=== PATIENT | male | born 1955 | race African-American/Black ===

== ENCOUNTER 2016-05-16 03:18 | Emergency (ER) | payer OTHER ==
[~2016-05-16] VITALS: Ht 177.8 cm; Wt 77.0 kg
[~2016-05-16 03:18] MED LIST: BRIM0.2S LEFT EYE; LISI-363 PO; LOPR50TA12 PO; MULT-65 PO; TOBR3.5O RIGHT EYE; WARF1TAB PO; WARF7.5T4 PO
[2016-05-16 03:21] VITALS: BP 176/100; PULSE 72; RESP 16; TEMP 98; O2SAT 98
[2016-05-16] MEDS ORDERED: PRED20 PO (03:47)
--- NOTE | 2016-05-16 03:47 | PD ---
HPI Chief Complaint: Numbness/Tingling Time Seen by Provider: 03:33 Travel History International Travel<30 days: No Contact w/Intl Traveler<30days: No Traveled to known affect area: No History of Present Illness HPI Patient is 61-year-old male who presents emergency Department with left greater than right index finger numbness and tingling. Patient states his been happening on and off to him for some time and gets worse when he lies down. Patient states he woke with this to find that his finger was numb tingling. Denies any neck pain. He does have a history of low back pain with sciatica which is resolved after he had back surgery. Denies any weakness denies any visual changes. Denies any headache nausea vomiting. PFSH Past Medical History Hx Anticoagulant Therapy: Yes Arthritis: Yes Anxiety: Yes Heart Rhythm Problems: No Cancer: No Cardiac Catheterization: No Cardiovascular Problems: Yes (HTN) High Cholesterol: Yes Chemotherapy: No Congestive Heart Failure: No Cerebrovascular Accident: No Diabetes: No Diminished Hearing: No Gastrointestinal Disorders: Yes (IBS) Glaucoma: Yes Hypertension: Yes Immune Disorder: No Musculoskeletal: Yes (CHRONIC BACK AND KNEE PAIN) Neurologic: No Psychiatric: No Respiratory: Yes (PE) Immunizations Current: No Myocardial Infarction: No Ulcer: Yes (POSSIBLE) Tetanus Vaccination: < 5 Years Influenza Vaccination: Yes Past Surgical History Coronary Artery Bypass Graft: No Eye Surgery: Yes (R eye surgery ) Hysterectomy: No Oral Surgery: Yes Social History Alcohol Use: Yes (OCCASIONALLY) Tobacco Use: No (1997) Substance Use: No Allergies-Medications (Allergen,Severity, Reaction): Coded Allergies: Penicillin (Verified Allergy, Severe, 05/16/16) Percodan (Verified Allergy, Severe, RASH/HIVES, 05/16/16) HMG-CoA Reductase Inhibitors (Verified Allergy, Intermediate, MUSCLE WEAKNESS, 05/16/16) Reported Meds & Prescriptions Reported Meds & Active Scripts Active Prednisone 20 Mg Tab 40 Mg PO DAILY 5 Days Tobradex Opht Oint (Tobramycin/Dexamethasone) 3.5 Applic/3.5 Gm Oint 0.5 Inch RIGHT EYE Q6 7 Days Reported Lopressor (Metoprolol Tartrate) 50 Mg Tab 5 Mg PO BID Lisinopril 20 mg (Lisinopril) 20 Mg Tab 12.5 Tab PO DAILY Warfarin Sodium 7.5 Mg Tab 1.5 Mg PO MOWEFR@16 Brimonidine Tartrate 0.2 % Claire 1 Drop LEFT EYE BID Multi-Vitamin Daily (Multivitamins) Daily Tab 1 Tab PO DAILY Warfarin Sodium 1 mg (Warfarin Sodium) 1 Mg Tab 5 Mg PO ETHURSFRISUN Review of Systems Except as stated in HPI: all other systems reviewed are Neg Physical Exam Narrative GENERAL: Well-developed well-nourished, quite pleasant in no apparent distress. SKIN: Warm and dry. HEAD: Atraumatic. Normocephalic. EYES: Pupils equal and round. No scleral icterus. No injection or drainage. ENT: No nasal bleeding or discharge. Mucous membranes pink and moist. NECK: Trachea midline. No JVD. CARDIOVASCULAR: Regular rate and rhythm. No murmur appreciated. RESPIRATORY: No accessory muscle use. Clear to auscultation. Breath sounds equal bilaterally. GASTROINTESTINAL: Abdomen soft, non-tender, nondistended. Hepatic and splenic margins not palpable. MUSCULOSKELETAL: No obvious deformities. No clubbing. No cyanosis. No edema. Pulses motor and sensory intact distally in all 4 extremity's. Cap refill is brisk in all 10 fingers. NEUROLOGICAL: Awake and alert. Cranial nerves II through XII grossly intact and nonfocal, 5 out of 5 strength in all 4 extremities. Small Piece Cutter strength is normal flexion and extension of the index fingers bilaterally is normal. There is some subjective numbness and tingling with sensation is intact. PSYCHIATRIC: Appropriate mood and affect; insight and judgment normal. Data Data Last Documented VS Vital Signs Date Time Temp Pulse Resp B/P Pulse Ox O2 Delivery O2 Flow Rate FiO2 05/16/16 03:34 66 14 97 Room Air 05/16/16 03:21 98.0 176/100 [facility] Medical Decision Making Medical Screen Exam Complete: Yes Emergency Medical Condition: Yes Differential Diagnosis Peripheral neuropathy, radiculopathy, cervical radicular up the, carpal tunnel syndrome. Acute CVA is highly unlikely, acute TIAs highly likely. Narrative Course Patient roomed in the emergency department, after discussion with him patient states that sometimes numbness and tingling does get worse based on if his neck is hyperextended for some time in bed. The remainder of his neuro exam is completely within normal limits. I highly doubt acute CVA or TIA. Noted to be hypertensive but he's been taking his lisinopril. He states the numbness and tingling is not painful and declines pain medication. Discussed with him that peripheral neuropathy really heads my differential diagnosis and I don't think that he warrants any further workup at this time. He is agreeable to a trial of steroids as an outpatient. [facility] Diagnosis Primary Impression: Peripheral neuropathy Qualified Code: G58.9 - Mononeuropathy Med/Other Pt SpecificInfo: Prescription(s) given Scripts Prednisone 20 Mg Tab40 Mg PO DAILY 5 Days Ref 0 Prov:Kiko Valiente MD 05/16/16 Disposition: 01 DISCHARGE HOME Condition: Stable Kiko Valiente MD May 16, 2016 03:47
== END 2016-05-16 04:03 | disposition home or self-care (01) ==
LOC: NEPC 03:18
DX: G58.9 Mononeuropathy, unspecified (principal); I10 Essential (primary) hypertension; E78.00 Pure hypercholesterolemia, unspecified; Z79.01 Long term (current) use of anticoagulants; Z87.39 Personal history of other diseases of the musculoskeletal system and connective tissue; Z86.59 Personal history of other mental and behavioral disorders; Z87.19 Personal history of other diseases of the digestive system; Z86.69 Personal history of other diseases of the nervous system and sense organs; Z86.711 Personal history of pulmonary embolism; Z87.891 Personal history of nicotine dependence
CPT/HCPCS: 99283

== ENCOUNTER 2016-05-31 02:06 | Emergency (ER) | payer OTHER ==
[~2016-05-31] VITALS: Ht 177.8 cm; Wt 72.0 kg
[~2016-05-31 02:06] MED LIST changes: +PRED20 PO
[2016-05-31 02:07] VITALS: BP 178/86; PULSE 61; RESP 16; TEMP 98.1; O2SAT 98
[2016-05-31] MEDS ORDERED: MULTTAB67 PO (03:58)
[2016-05-31] MEDS ORDERED: WARF-21 PO (03:58)
[2016-05-31] MEDS ORDERED: BRIM0.2S4 LEFT EYE (03:58)
[2016-05-31] MEDS ORDERED: WARF4TAB52 PO (03:58)
[2016-05-31] MEDS ORDERED: LISI-515 PO (03:58)
[2016-05-31] MEDS ORDERED: METO-309 PO (03:58)
[2016-05-31 04:00] VITALS: BP 157/73; PULSE 51; RESP 18; O2SAT 96
--- NOTE | 2016-05-31 05:46 | PD ---
HPI Chief Complaint: Hypertension Time Seen by Provider: 04:07 Travel History International Travel<30 days: No Contact w/Intl Traveler<30days: No Traveled to known affect area: No History of Present Illness HPI The patient 61 years old. He came in because at home his blood pressure was 200 /98. He reports compliance with his antihypertensives. Briefly he felt nauseated however that resolved prior to ER arrival. He's had no chest pain or shortness of breath. No additional complaint. PFSH Past Medical History Hx Anticoagulant Therapy: Yes (WARFARIN) Arthritis: Yes Anxiety: Yes Heart Rhythm Problems: No Cancer: No Cardiac Catheterization: No Cardiovascular Problems: Yes (HTN) High Cholesterol: Yes Chemotherapy: No Congestive Heart Failure: No Cerebrovascular Accident: No Diabetes: No Diminished Hearing: No Gastrointestinal Disorders: Yes (IBS) Glaucoma: Yes Hypertension: Yes Immune Disorder: No Musculoskeletal: Yes (CHRONIC BACK AND KNEE PAIN) Neurologic: No Psychiatric: No Respiratory: Yes (PE) Immunizations Current: No Myocardial Infarction: No Ulcer: Yes (POSSIBLE) Past Surgical History Abdominal Surgery: Yes (HERNIA REPAIR) Coronary Artery Bypass Graft: No Eye Surgery: Yes (R eye surgery ) Hysterectomy: No Oral Surgery: Yes Social History Alcohol Use: No Tobacco Use: No Substance Use: No Allergies-Medications (Allergen,Severity, Reaction): Coded Allergies: Penicillin (Verified Allergy, Severe, 05/31/16) Percodan (Verified Allergy, Severe, RASH/HIVES, 05/31/16) HMG-CoA Reductase Inhibitors (Verified Allergy, Intermediate, MUSCLE WEAKNESS, 05/31/16) Reported Meds & Prescriptions Reported Meds & Active Scripts Active Reported Warfarin 7.5 Mg Tab 1.5 Mg PO MOWEFRI PRN Warfarin 1 Mg Tab 1 Mg PO TUESTHURSFRISUN Multiple Vitamin 1 Tab 1 Tab PO DAILY Lopressor (Metoprolol Tartrate) 50 Mg Tab 50 Mg PO BID Lisinopril 20 Mg Tab 20 Mg PO DAILY Brimonidine Opth Drops (Brimonidine Tartrate) 0.2% Soln 1 Drop LEFT EYE BID Review of Systems Except as stated in HPI: all other systems reviewed are Neg Physical Exam Narrative GENERAL: 61-year-old male pleasant well-nourished well-developed SKIN: Warm and dry. HEAD: Atraumatic. Normocephalic. EYES: Pupils equal and round. No scleral icterus. No injection or drainage. ENT: No nasal bleeding or discharge. Mucous membranes pink and moist. NECK: Trachea midline. No JVD. CARDIOVASCULAR: Regular rate and rhythm. No murmur appreciated. RESPIRATORY: No accessory muscle use. Clear to auscultation. Breath sounds equal bilaterally. GASTROINTESTINAL: Abdomen soft, non-tender, nondistended. Hepatic and splenic margins not palpable. MUSCULOSKELETAL: No obvious deformities. No clubbing. No cyanosis. No edema. NEUROLOGICAL: Awake and alert. No obvious cranial nerve deficits. Motor grossly within normal limits. Normal speech. PSYCHIATRIC: Appropriate mood and affect; insight and judgment normal. Data Data Last Documented VS Vital Signs Date Time Temp Pulse Resp B/P Pulse Ox O2 Delivery O2 Flow Rate FiO2 05/31/16 04:00 51 18 157/73 96 Room Air 05/31/16 02:07 98.1 [facility] Medical Decision Making Medical Screen Exam Complete: Yes Emergency Medical Condition: Yes Medical Record Reviewed: Yes Differential Diagnosis Hypertensive emergency, hypertensive crisis, hypertension Narrative Course The patient has no significantly elevated blood pressure in the ER. Continued compliance with antihypertensives recommended. Patient ready for discharge. Diagnosis Primary Impression: HTN (hypertension) Qualified Code: I15.9 - Secondary hypertension Referrals: [facility] 2 days Additional Instructions: You have a choice when it comes to health care, and we are glad that you chose [facility]. Hopefully, we have met your expectations on today's visit. You are welcome to return to [facility] at any time, as we are committed to meeting the health care needs of our community. Med/Other Pt SpecificInfo: No Change to Meds Disposition: 01 DISCHARGE HOME Condition: Mart Eldridge MD May 31, 2016 05:46
--- NOTE | 2016-05-31 10:02 | EKG ---
Date Performed: 05/31/2016 Time Performed: 03:54:30 PTAGE: 61 years EKG: SINUS BRADYCARDIA MODERATE ST DEPRESSION ABNORMAL ECG PREVIOUS TRACING : 10/20/2015 04.05 DOCTOR: Rajesh Cho Interpretating Date/Time 05/31/2016 10:00:10
== END 2016-05-31 05:55 | disposition home or self-care (01) ==
LOC: NEPE 02:06
DX: I10 Essential (primary) hypertension (principal); R00.1 Bradycardia, unspecified; E78.00 Pure hypercholesterolemia, unspecified; K58.9 Irritable bowel syndrome, unspecified; Z86.711 Personal history of pulmonary embolism; Z79.01 Long term (current) use of anticoagulants
CPT/HCPCS: 93005; 99282

== ENCOUNTER 2016-07-08 10:42 | Emergency (ER) | payer OTHER ==
[~2016-07-08] VITALS: Ht 180.3 cm; Wt 75.0 kg
[~2016-07-08 10:42] MED LIST changes: -BRIM0.2S LEFT EYE; +BRIM0.2S4 LEFT EYE; -LISI-363 PO; +LISI-515 PO; -LOPR50TA12 PO; +METO-309 PO; -MULT-65 PO; +MULTTAB67 PO; -PRED20 PO; -TOBR3.5O RIGHT EYE; +WARF-21 PO; -WARF1TAB PO; +WARF4TAB52 PO; -WARF7.5T4 PO
[2016-07-08 10:44] VITALS: BP 165/84; PULSE 82; RESP 16; TEMP 98.5; O2SAT 96
[2016-07-08 11:02] VITALS: BP 153/83; PULSE 73; RESP 16; O2SAT 100
--- NOTE | 2016-07-08 11:10 | PD ---
HPI Chief Complaint: Hypertension Time Seen by Provider: 11:10 Travel History International Travel<30 days: No Contact w/Intl Traveler<30days: No Traveled to known affect area: No History of Present Illness HPI 61-year-old male with a history of hypertension presents to the emergency department for evaluation of feeling as though his blood pressure is elevated. States that he occasionally has episodes of elevated blood pressure despite taking his medication. States that he had a slight headache and some mild nausea this morning and tried to take his blood pressure at home but his blood pressure cuff was not working. States that this is how he feels when his blood pressure is elevated so he came here for evaluation. He states he does have a history of headaches and that this is a typical headache for him. Denies sudden onset thunderclap headache or worst headache of his life. Denies any vision loss, blurred vision, fever, chills, vomiting, diarrhea, chest pain, shortness of breath, abdominal pain, numbness or tingling or weakness. States that he took his lisinopril this morning and his metoprolol last night, as prescribed. No other complaints. [facility] the [facility] Past Medical History Hx Anticoagulant Therapy: Yes (WARFARIN) Arthritis: Yes Anxiety: Yes Heart Rhythm Problems: No Cancer: No Cardiac Catheterization: No Cardiovascular Problems: Yes (HTN) High Cholesterol: Yes Chemotherapy: No Congestive Heart Failure: No Cerebrovascular Accident: No Diabetes: No Diminished Hearing: No Gastrointestinal Disorders: Yes (IBS) Glaucoma: Yes Hypertension: Yes Immune Disorder: No Musculoskeletal: Yes (CHRONIC BACK AND KNEE PAIN) Neurologic: No Psychiatric: No Respiratory: Yes (PE) Immunizations Current: No Myocardial Infarction: No Ulcer: Yes (POSSIBLE) Past Surgical History Abdominal Surgery: Yes (HERNIA REPAIR) Coronary Artery Bypass Graft: No Eye Surgery: Yes (R eye surgery ) Hysterectomy: No Oral Surgery: Yes Social History Alcohol Use: No Tobacco Use: No Substance Use: No Allergies-Medications (Allergen,Severity, Reaction): Coded Allergies: Penicillin (Verified Allergy, Severe, 05/31/16) Percodan (Verified Allergy, Severe, RASH/HIVES, 05/31/16) HMG-CoA Reductase Inhibitors (Verified Allergy, Intermediate, MUSCLE WEAKNESS, 05/31/16) Reported Meds & Prescriptions Reported Meds & Active Scripts Active Reported Warfarin 7.5 Mg Tab 1.5 Mg PO MOWEFRI PRN Warfarin 1 Mg Tab 1 Mg PO TUESTHURSFRISUN Multiple Vitamin 1 Tab 1 Tab PO DAILY Lopressor (Metoprolol Tartrate) 50 Mg Tab 50 Mg PO BID Lisinopril 20 Mg Tab 20 Mg PO DAILY Brimonidine Opth Drops (Brimonidine Tartrate) 0.2% Soln 1 Drop LEFT EYE BID Review of Systems Except as stated in HPI: all other systems reviewed are Neg Physical Exam Narrative GENERAL: Well-nourished and well-developed pleasant male patient in no acute distress who is nontoxic appearing. SKIN: Warm and dry. HEAD: Normocephalic and atraumatic. EYES: No injection, drainage, or hyphema noted. PERRLA. EOMI. ENT: No nasal drainage noted. Oropharynx is clear. NECK: Supple and the trachea is midline. CARDIOVASCULAR: Regular rate and rhythm. RESPIRATORY: Breath sounds are equal bilaterally with no accessory muscle use, wheezing, rhonchi, or crackles. GASTROINTESTINAL: Abdomen is soft, non-tender, and nondistended. MUSCULOSKELETAL: No obvious deformities, swelling, cyanosis, or ecchymosis is present throughout the upper and lower extremities. Patient has full range of motion without any signs of neurovascular compromise. Strength 5/5 upper and lower extremities and equal bilaterally. NEUROLOGICAL: Awake, alert, and oriented. Normal speech and gait. Cranial nerves are grossly intact. Data Data Last Documented VS Vital Signs Date Time Temp Pulse Resp B/P Pulse Ox O2 Delivery O2 Flow Rate FiO2 07/08/16 11:02 73 16 153/83 100 07/08/16 10:56 Room Air 07/08/16 10:44 98.5 [facility] Medical Decision Making Medical Screen Exam Complete: Yes Emergency Medical Condition: Yes Differential Diagnosis Hypertension versus medical clearance versus headache Narrative Course 61-year-old male presents to the emergency department for evaluation of possible elevated blood pressure. Patient is afebrile. The patient's blood pressure is 153/83. All other vital signs within normal limits. No focal neurologic deficits. No chest pain or shortness of breath. No other complaints or concerns. Physical examination is unremarkable. I did offer him tylenol for his mild headache however he states he would like to go home and take this medication. Patient also mentions he will be running out of his Metoprolol tomorrow and is asking for a refill however he is not sure of the dose - therefore I advised him to call his physician and ask them to call in a refill. Patient is reassured and advised to follow-up with his PCP. Patient verbalizes understanding and agreement with treatment plan. I discussed the case with my attending physician Dr. Valiente who is aware of the patients history, physical examination findings, and treatment plan. Diagnosis Primary Impression: HTN (hypertension) Qualified Code: I10 - Essential hypertension Referrals: Primary Care Physician Patient Instructions: General Instructions, Hypertension (ED) Additional Instructions: Follow-up with your Primary Care Physician. Return to the ED for any acute worsening of symptoms. Med/Other Pt SpecificInfo: No Change to Meds Disposition: 01 DISCHARGE HOME Condition: Stable Debbie Peters Jul 08, 2016 11:10
[2016-07-08 11:37] VITALS: BP 124/73
== END 2016-07-08 11:46 | disposition home or self-care (01) ==
LOC: NEPD 10:42
DX: I10 Essential (primary) hypertension (principal); R51 Headache; E78.00 Pure hypercholesterolemia, unspecified; Z79.01 Long term (current) use of anticoagulants; Z87.39 Personal history of other diseases of the musculoskeletal system and connective tissue; Z86.59 Personal history of other mental and behavioral disorders; Z86.79 Personal history of other diseases of the circulatory system; Z87.19 Personal history of other diseases of the digestive system; Z87.09 Personal history of other diseases of the respiratory system
CPT/HCPCS: 99283

== ENCOUNTER 2016-11-24 14:29 | Observation (INO) | payer OTHER ==
[2016-11-24] VITALS (7 sets, daily range): BP systolic 121–153; BP diastolic 68–84; PULSE 50–78; RESP 16–20; TEMP 98.3–98.4; O2SAT 95–99
[~2016-11-24] VITALS: Ht 177.8 cm; Wt 75.0 kg
[2016-11-24] MEDS ORDERED: LISI10TA3 PO (15:15)
[2016-11-24] MEDS ORDERED: WARF-23 PO (15:18)
[2016-11-24] MEDS ORDERED: METO25TA3 PO (15:19)
--- NOTE | 2016-11-24 15:24 | PD ---
HPI Chief Complaint: Cardiac Complaint Time Seen by Provider: 15:23 Travel History International Travel<30 days: No Contact w/Intl Traveler<30days: No Traveled to known affect area: No [facility] Past Medical History Hx Anticoagulant Therapy: Yes (COUMADIN (FOR BLOOD CLOTS)) Arthritis: Yes Anxiety: Yes Heart Rhythm Problems: No Cancer: No Cardiac Catheterization: No Cardiovascular Problems: Yes (HTN) High Cholesterol: Yes Chemotherapy: No Congestive Heart Failure: No Cerebrovascular Accident: No Diabetes: No Diminished Hearing: No Gastrointestinal Disorders: Yes (IBS) Glaucoma: Yes Hypertension: Yes Immune Disorder: No Musculoskeletal: Yes (CHRONIC BACK AND KNEE PAIN) Neurologic: No Psychiatric: No Respiratory: Yes (PE) Immunizations Current: No Myocardial Infarction: No Ulcer: Yes (POSSIBLE) Past Surgical History Abdominal Surgery: Yes (HERNIA REPAIR) Coronary Artery Bypass Graft: No Eye Surgery: Yes (R eye surgery ) Hysterectomy: No Oral Surgery: Yes Family History Family Myocardial Infarction: No Social History Alcohol Use: No Tobacco Use: No Substance Use: No Allergies-Medications (Allergen,Severity, Reaction): Coded Allergies: aspirin (Unverified Allergy, Severe, RASH/HIVES, 10/25/16) oxycodone (Unverified Allergy, Severe, RASH/HIVES, 10/25/16) penicillin G (Unverified Allergy, Severe, 10/25/16) amlodipine (Unverified Allergy, Intermediate, MUSCLE WEAKNESS, 10/25/16) atorvastatin (Unverified Allergy, Intermediate, MUSCLE WEAKNESS, 10/25/16) pravastatin (Unverified Allergy, Intermediate, MUSCLE WEAKNESS, 10/25/16) simvastatin (Unverified Allergy, Intermediate, MUSCLE WEAKNESS, 10/25/16) Reported Meds & Prescriptions Reported Meds & Active Scripts Active Reported Metoprolol Tartrate 25 Mg Tab 12.5 Mg PO BID Warfarin 5 Mg Tab 5 Mg PO ,OLY,SA,KEITH Lisinopril 10 Mg Tab 10 Mg PO BID Warfarin 7.5 Mg Tab 1.5 Mg PO MOWEFRI PRN Multiple Vitamin 1 Tab 1 Tab PO DAILY Brimonidine Opth Drops (Brimonidine Tartrate) 0.2% Soln 1 Drop LEFT EYE BID Data Data Last Documented VS Vital Signs Date Time Temp Pulse Resp B/P (MAP) Pulse Ox O2 Delivery O2 Flow Rate FiO2 11/24/16 14:32 98.3 78 20 153/78 (103) 99 Room Air Orders Orders Electrocardiogram (11/24/16 14:41) Complete Blood Count With Diff (11/24/16 14:41) Basic Metabolic Panel (Bmp) (11/24/16 14:41) Ckmb (Isoenzyme) Profile (11/24/16 14:41) Troponin I (11/24/16 14:41) Chest, Pa & Lat (11/24/16 14:41) Carla Mason Nov 24, 2016 15:24
--- NOTE | 2016-11-24 15:42 | PD ---
HPI Chief Complaint: Cardiac Complaint Time Seen by Provider: 15:23 Travel History International Travel<30 days: No Contact w/Intl Traveler<30days: No Traveled to known affect area: No History of Present Illness HPI 61-year-old male came to the emergency room with history of substernal chest discomfort and palpitations that started at 2 PM this afternoon. Patient says he was asleep when it woke him up. Currently patient says he is symptom-free but this whole thing made him worried. Patient is supposed to get a stress test next month at [facility] in [place]. He has history of diabetes but he is not a smoker. He does not have any history of coronary artery disease yet. His last stress test was a few years ago. Vital signs are stable. No aggravating or relieving factor. Pain was non-radiation all and felt like indigestion. The pain is paroxysmal in nature and no aggravating or relieving factors identified. PFSH Past Medical History Narrative Medical List of his past medical, surgical, social and family history was reviewed from the nursing note. Hx Anticoagulant Therapy: Yes (COUMADIN (FOR BLOOD CLOTS)) Arthritis: Yes Anxiety: Yes Heart Rhythm Problems: No Cancer: No Cardiac Catheterization: No Cardiovascular Problems: Yes (HTN) High Cholesterol: Yes Chemotherapy: No Congestive Heart Failure: No Cerebrovascular Accident: No Diabetes: No Diminished Hearing: No Gastrointestinal Disorders: Yes (IBS) Glaucoma: Yes Hypertension: Yes Immune Disorder: No Musculoskeletal: Yes (CHRONIC BACK AND KNEE PAIN) Neurologic: No Psychiatric: No Respiratory: Yes (PE) Immunizations Current: No Myocardial Infarction: No Ulcer: Yes (POSSIBLE) Past Surgical History Abdominal Surgery: Yes (HERNIA REPAIR) Coronary Artery Bypass Graft: No Eye Surgery: Yes (R eye surgery ) Hysterectomy: No Oral Surgery: Yes Family History Family Myocardial Infarction: No Social History Alcohol Use: No Tobacco Use: No Substance Use: No Allergies-Medications (Allergen,Severity, Reaction): Coded Allergies: aspirin (Unverified Allergy, Severe, RASH/HIVES, 10/25/16) oxycodone (Unverified Allergy, Severe, RASH/HIVES, 10/25/16) penicillin G (Unverified Allergy, Severe, 10/25/16) amlodipine (Unverified Allergy, Intermediate, MUSCLE WEAKNESS, 10/25/16) atorvastatin (Unverified Allergy, Intermediate, MUSCLE WEAKNESS, 10/25/16) pravastatin (Unverified Allergy, Intermediate, MUSCLE WEAKNESS, 10/25/16) simvastatin (Unverified Allergy, Intermediate, MUSCLE WEAKNESS, 10/25/16) Comments List of his allergies reviewed from the nursing note. Reported Meds & Prescriptions Reported Meds & Active Scripts Active Reported Metoprolol Tartrate 25 Mg Tab 12.5 Mg PO BID Warfarin 5 Mg Tab 5 Mg PO ,OLY,SA,KEITH Lisinopril 10 Mg Tab 10 Mg PO BID Warfarin 7.5 Mg Tab 1.5 Mg PO MOWEFRI PRN Multiple Vitamin 1 Tab 1 Tab PO DAILY Brimonidine Opth Drops (Brimonidine Tartrate) 0.2% Soln 1 Drop LEFT EYE BID Narrative Medication List of his home medications reviewed from the nursing note. Review of Systems Except as stated in HPI: all other systems reviewed are Neg Physical Exam Narrative GENERAL: Awake, alert, no obvious distress SKIN: Focused skin assessment warm/dry. HEAD: Atraumatic. Normocephalic. EYES: Pupils equal and round. No scleral icterus. No injection or drainage. ENT: No nasal bleeding or discharge. Mucous membranes pink and moist. NECK: Trachea midline. No JVD. CARDIOVASCULAR: Regular rate and rhythm. No murmur appreciated. RESPIRATORY: No accessory muscle use. Clear to auscultation. Breath sounds equal bilaterally. GASTROINTESTINAL: Abdomen soft, non-tender, nondistended. Hepatic and splenic margins not palpable. MUSCULOSKELETAL: No obvious deformities. No clubbing. No cyanosis. No edema. NEUROLOGICAL: Awake and alert. No obvious cranial nerve deficits. Motor grossly within normal limits. Normal speech. PSYCHIATRIC: Appropriate mood and affect; insight and judgment normal. Data Data Last Documented VS Vital Signs Date Time Temp Pulse Resp B/P (MAP) Pulse Ox O2 Delivery O2 Flow Rate FiO2 11/24/16 15:52 54 18 131/68 (89) 98 Room Air 11/24/16 14:32 98.3 Orders Orders Electrocardiogram (11/24/16 14:41) Complete Blood Count With Diff (11/24/16 14:41) Basic Metabolic Panel (Bmp) (11/24/16 14:41) Ckmb (Isoenzyme) Profile (11/24/16 14:41) Troponin I (11/24/16 14:41) Chest, Pa & Lat (11/24/16 14:41) Prothrombin Time / Inr (Pt) (11/24/16 15:42) CKMB (11/24/16 15:45) CKMB% (11/24/16 15:45) Sodium Chlor 0.9% 1000 Ml Inj (Ns 1000 M (11/24/16 17:15) Admit Order (Ed Use Only) (11/24/16 17:11) Place In Observation (11/24/16 17:12) Activity Bed Rest With Brp (11/24/16 17:12) Vital Signs (Adult) Q4H (11/24/16 17:12) Cardiac Rhythm .As Directed (11/24/16 17:12) Notify Dr: Other .PRN (11/24/16 17:12) Notify Parameters (11/24/16 17:12) Resp Oxygen Nasal Cannula (11/24/16 ) Ckmb (Isoenzyme) Profile (11/24/16 17:12) Ckmb (Isoenzyme) Profile (11/24/16 20:12) Troponin I (11/24/16 17:12) Troponin I (11/24/16 20:12) Electrocardiogram (11/24/16 20:12) ^ Obtain (11/24/16 17:12) Sodium Chloride 0.9% Flush (Ns Flush) (11/24/16 17:15) Sodium Chloride 0.9% Flush (Ns Flush) (11/24/16 21:00) Acetaminophen (Tylenol) (11/24/16 17:15) Ondansetron Inj (Zofran Inj) (11/24/16 17:15) Nitroglycerin Sl (Nitrostat Sl) (11/24/16 17:15) [employer] / Telemetry MANE.Q8H (11/24/16 17:12) Labs Laboratory Tests Test 11/24/16 15:45 White Blood Count 4.2 TH/MM3 Red Blood Count 4.24 MIL/MM3 Hemoglobin 13.5 GM/DL Hematocrit 39.3 % Mean Corpuscular Volume 92.7 FL Mean Corpuscular Hemoglobin 31.8 PG Mean Corpuscular Hemoglobin Concent 34.3 % Red Cell Distribution Width 13.9 % Platelet Count 139 TH/MM3 Mean Platelet Volume 9.4 FL Neutrophils (%) (Auto) 51.8 % Lymphocytes (%) (Auto) 31.0 % Monocytes (%) (Auto) 13.8 % Eosinophils (%) (Auto) 2.9 % Basophils (%) (Auto) 0.5 % Neutrophils # (Auto) 2.2 TH/MM3 Lymphocytes # (Auto) 1.3 TH/MM3 Monocytes # (Auto) 0.6 TH/MM3 Eosinophils # (Auto) 0.1 TH/MM3 Basophils # (Auto) 0.0 TH/MM3 CBC Comment AUTO DIFF Differential Comment AUTO DIFF CONFIRMED Platelet Estimate LOW Platelet Morphology Comment NORMAL Red Cell Morphology Comment NORMAL Prothrombin Time 20.1 SEC Prothromb Time International Ratio 1.8 RATIO Blood Urea Nitrogen 18 MG/DL Creatinine 1.17 MG/DL Random Glucose 83 MG/DL Calcium Level 8.7 MG/DL Sodium Level 143 MEQ/L Potassium Level 3.6 MEQ/L Chloride Level 110 MEQ/L Carbon Dioxide Level 27.2 MEQ/L Anion Gap 6 MEQ/L Estimat Glomerular Filtration Rate 76 ML/MIN Total Creatine Kinase 704 U/L Creatine Kinase MB 10.6 NG/ML Creatine Kinase MB % 1.5 % Troponin I LESS THAN 0.02 NG/ML MDM Medical Decision Making Medical Screen Exam Complete: Yes Emergency Medical Condition: Yes Medical Record Reviewed: Yes Interpretation(s) Twelve-lead EKG was reviewed by me. Normal sinus rhythm, normal axis, nonspecific ST-T wave changes, bradycardia. Heart rate of 53 bpm. Differential Diagnosis ACS, non-STEMI, nonspecific chest pain Narrative Course 5:17 PM blood test results of back. CPK is slightly elevated. I've given him a liter fluid bolus. Patient is allergic to aspirin and hence one was not given. Given his few risk factors he will be admitted to the chest pain center. Patient understands this. Procedures EKG Prior to Arrival: No Diagnosis Primary Impression: Chest pain Qualified Codes: R07.9 - Chest pain, unspecified Admitting Information Admitting Physician Requests: Observation Scripts Pantoprazole (Protonix) 40 Mg Tab 40 MG PO DAILY for Reflux, #30 TAB 0 Refills Prov: Colt Morataya 11/25/16 Natan Huertas MD Nov 24, 2016 15:42
--- NOTE | 2016-11-24 16:21 | RADRPT ---
EXAM DATE/TIME: 11/24/2016 16:08 [facility] COMPARISON: No previous studies available for comparison. INDICATIONS : Chest pressure today. MEDICAL HISTORY : Hypertension. Hypercholesterolemia. SURGICAL HISTORY : None. ENCOUNTER: Initial ACUITY: 1 day PAIN SCORE: 2/10 LOCATION: Bilateral chest FINDINGS: Left basilar streakiness is noted consistent with atelectasis and/or infiltrate. Clinical correlation is recommended. The right lung is clear. The heart is normal. Degenerative changes and scoliosis o f the thoracolumbar spine are noted. CONCLUSION: 1. Left basilar streakiness consistent with atelectasis and/or infiltrate. Clinical correlation is re commended. 2. Degenerative changes and scoliosis of the thoracolumbar spine. Kiko Hansen MD on November 24, 2016 at 16:17 Board Certified Radiologist. This report was verified electronically.
[2016-11-24 16:37] LABS: INTERNATIONAL NORMALIZED RATIO 1.8 RATIO; PROTHROMBIN TIME - PATIENT 20.1 SEC (9.8-11.6)
[2016-11-24 16:38] LABS: AUTOMATED NEUTROPHIL # 2.2 TH/MM3 (1.8-7.7); BASOPHIL % 0.5 % (0.0-2.0); EOSINOPHIL # 0.1 TH/MM3 (0-0.4); EOSINOPHIL % 2.9 % (0.0-4.0); HEMATOCRIT 39.3 % (39.0-51.0); HEMO FLAGS AUTO DIFF; LYMPHOCYTE # 1.3 TH/MM3 (1.0-4.8); MEAN CELL VOLUME 92.7 FL (80.0-100.0); MEAN CORPUSCULAR HEMOGLOBIN 31.8 PG (27.0-34.0); MEAN CORPUSCULAR HGB CONC 34.3 % (32.0-36.0); MONO % 13.8 % (0.0-8.0); NEUT % 51.8 % (16.0-70.0); PLATELET COUNT 139 TH/MM3 (150-450); RED BLOOD COUNT 4.24 MIL/MM3 (4.50-5.90); RED CELL DISTRIBUTION WIDTH 13.9 % (11.6-17.2); WHITE BLOOD COUNT 4.2 TH/MM3 (4.0-11.0)
[2016-11-24 16:57] LABS: ANION GAP 6 MEQ/L (5-15); BICARBONATE 27.2 MEQ/L (21.0-32.0); BLOOD UREA NITROGEN 18 MG/DL (7-18); CHLORIDE 110 MEQ/L (98-107); CREATINE KINASE 704 U/L (39-308); GLOMERULAR FILTRATION RATE 76 ML/MIN (>89); SODIUM (NA) 143 MEQ/L (136-145)
[2016-11-24 16:59] LABS: POTASSIUM 3.6 MEQ/L (3.5-5.1)
[2016-11-24 17:08] LABS: PLATELET ESTIMATE SMEAR LOW (NORMAL); PLATELET MORPHOLOGY NORMAL (NORMAL)
[2016-11-24 17:09] LABS: SCAN/DIFF AUTO DIFF CONFIRMED
[2016-11-24 17:12] LABS: CKMB 10.6 NG/ML (0.5-3.6)
[2016-11-24] MEDS ORDERED: SODIUM CHLOR 0.9% 1000 ML INJ 1,000 ML IV ONE (17:15)
[2016-11-24] MEDS ORDERED: ACETAMINOPHEN 500 MG CPLT PO PRN (17:15)
[2016-11-24] MEDS ORDERED: SODIUM CHLORIDE 0.9% FLUSH 10 ML FLUSH IV FLUSH PRN (17:15)
[2016-11-24] MEDS ORDERED: NITROGLYCERIN 0.4 MG SL 25 TABS/BTL SL PRN (17:15)
[2016-11-24] MEDS ORDERED: ONDANSETRON HCL 4 MG/2 ML VIAL IV PUSH PRN (17:15)
[2016-11-24 19:11] LABS: CREATINE KINASE 600 U/L (39-308)
[2016-11-24 19:23] LABS: CKMB 8.9 NG/ML (0.5-3.6)
[2016-11-24] MEDS: SODIUM CHLORIDE 0.9% FLUSH 10 ML FLUSH IV FLUSH SCH (21:51)
[2016-11-25] VITALS: BP 122/78; PULSE 54; RESP 18; TEMP 98.1; O2SAT 96
[2016-11-25 03:34] LABS: CREATINE KINASE 521 U/L (39-308)
[2016-11-25 03:48] LABS: CKMB 7.5 NG/ML (0.5-3.6)
[2016-11-25 04:03] VITALS: BP 129/76; PULSE 49; RESP 20; TEMP 98.4; O2SAT 97
[2016-11-25 06:44] VITALS: O2SAT 98
[2016-11-25 07:15] VITALS: PULSE 66
[2016-11-25 08:15] VITALS: BP 134/74; PULSE 53; RESP 18; TEMP 98; O2SAT 95
[2016-11-25] MEDS ORDERED: LISINOPRIL 10 MG TAB PO SCH (09:00)
[2016-11-25] MEDS ORDERED: METOPROLOL TARTRATE 25 MG TAB PO SCH (09:00)
[2016-11-25] MEDS: SODIUM CHLORIDE 0.9% FLUSH 10 ML FLUSH IV FLUSH SCH (09:53)
--- NOTE | 2016-11-25 10:40 | HHI.HP ---
HPI Primary Care Physician [facility] Chief Complaint Chest pain History of Present Illness This is a 61-year-old male with history of hypertension hyperlipidemia that presents to ED with a complaint of fast heart rate and elevated blood pressure that began last night. States that he had eaten dinner which included bran flakes, to [employer] sandwiches, and CT and then about 20 minutes later lying down. Then he developed indigestion lasting about 15-20 minutes and about the same time he also had the sensation of heart beating rapidly and that's rechecked the pulse being 161. He is not short of breath nausea or diaphoretic. He does have history of GERD. He did not take any over-the- counter remedies. Denies any other type of discomfort in his chest. He has history of pulmonary most 4 years ago. Takes warfarin. He believes he had a stress test in the past. I reviewed his records and he had a stress test in 2006 that was nonischemic. Denies recent illness. Denies fevers or chills. Review of Systems General: Patient denies fevers, chills recent, and recent travel HEENT: Patient denies headache, sore throat, difficulty swallowing. Cardiovascular: Has the chest discomfort as mentioned above. Had sensation of heart beating rapidly and states he checked the pulse and his wrist and was 161. Denies heart beating irregularly. No syncope. Denies diaphoresis. Respiratory: Denies shortness of breath or inspirational chest discomfort. Denies coughing wheezing or hemoptysis. GI: Patient denies nausea, vomiting, diarrhea, abdominal pain, bloody stools. Musculoskeletal: Patient denies joint pain or edema. Denies calf pain or edema. Neurovascular: Patient denies numbness, tingling, weakness in extremities. Denies headache. Endocrine: Denies polyuria and polydipsia. Hematologic: Denies easy bruising. Skin: Denies rash or itching. Past Family Social History Allergies: Coded Allergies: aspirin (Unverified Allergy, Severe, RASH/HIVES, 10/25/16) oxycodone (Unverified Allergy, Severe, RASH/HIVES, 10/25/16) penicillin G (Unverified Allergy, Severe, 10/25/16) amlodipine (Unverified Allergy, Intermediate, MUSCLE WEAKNESS, 10/25/16) atorvastatin (Unverified Allergy, Intermediate, MUSCLE WEAKNESS, 10/25/16) pravastatin (Unverified Allergy, Intermediate, MUSCLE WEAKNESS, 10/25/16) simvastatin (Unverified Allergy, Intermediate, MUSCLE WEAKNESS, 10/25/16) Past Medical History Hypertension, pulmonary embolus, also history of hyperlipidemia but states he cannot tolerate statins and along takes medication. Denies diabetes and known CAD. Past Surgical History Noncontributory. Reported Medications Reported Meds & Active Scripts Active Reported Metoprolol Tartrate 25 Mg Tab 12.5 Mg PO BID Warfarin 5 Mg Tab 5 Mg PO TU,OLY,SA,KEITH Lisinopril 10 Mg Tab 10 Mg PO BID Warfarin 7.5 Mg Tab 1.5 Mg PO MOWEFRI PRN Multiple Vitamin 1 Tab 1 Tab PO DAILY Brimonidine Opth Drops (Brimonidine Tartrate) 0.2% Soln 1 Drop LEFT EYE BID Active Ordered Medications Current Medications Medications (Trade) Dose Ordered Sig/Paulina Route Start Time Stop Time Status Last Admin (NS Flush) 2 ml UNSCH PRN IV FLUSH 11/24/16 17:15 (NS Flush) 2 ml BID IV FLUSH 11/24/16 21:00 11/25/16 09:53 (Tylenol) 500 mg Q4H PRN PO 11/24/16 17:15 11/24/16 21:52 (Zofran Inj) 4 mg Q6H PRN IV PUSH 11/24/16 17:15 (Nitrostat Sl) 0.4 mg Q5M PRN SL 11/24/16 17:15 (Prinivil) 10 mg BID PO 11/25/16 09:00 11/25/16 09:52 (Lopressor) 12.5 mg BID PO 11/25/16 09:00 11/25/16 09:53 Family History Denies family history of CAD. Social History Patient does not smoke, drink alcohol, or use illicit drugs. Physical Exam Vital Signs Vital Signs Date Time Temp Pulse Resp B/P (MAP) Pulse Ox O2 Delivery O2 Flow Rate FiO2 11/25/16 08:15 98.0 53 18 134/74 (94) 95 11/25/16 07:15 66 11/25/16 06:44 98 21 11/25/16 04:03 98.4 49 20 129/76 (93) 97 11/25/16 00:00 98.1 54 18 122/78 (93) 96 11/24/16 20:12 98.3 55 18 121/72 (88) 99 11/24/16 18:00 52 19 143/84 (103) 98 11/24/16 17:58 98.4 51 16 130/81 (97) 95 11/24/16 17:50 98 21 11/24/16 17:39 50 19 143/84 (103) 99 Room Air 11/24/16 15:52 54 18 131/68 (89) 98 Room Air 11/24/16 14:32 98.3 78 20 153/78 (103) 99 Room Air Physical Exam GENERAL: This is a well-nourished, well-developed patient, in no apparent distress. Patient speaks in clear complete sentences. Patient is pleasant. HEENT: Head is atraumatic and normocephalic. Neck is supple without lymphadenopathy and trachea is midline. No JVD or carotid bruits. CARDIOVASCULAR: Regular rate and rhythm without murmurs, gallops, or rubs. RESPIRATORY: Clear to auscultation. Breath sounds equal bilaterally. No wheezes , rales, or rhonchi. Chest wall is nontender. No use of accessory muscles. GASTROINTESTINAL: Abdomen is nontender, nondistended. Abdomen soft. No obvious pulsatile mass or bruit. No CVA tenderness. Strong femoral pulses bilaterally. Normal bowel sounds in all quadrants. MUSCULOSKELETAL: Patient is moving upper and lower extremities freely. No calf tenderness or edema, no Homans sign. Strong pulses in upper and lower extremities. NEUROLOGICAL: Patient is alert and oriented. Cranial nerves 2-12 are grossly intact. No focal deficits and speech is clear. SKIN: No rash and turgor is normal. Laboratory Laboratory Tests Test 11/24/16 15:45 11/24/16 18:45 11/24/16 21:50 White Blood Count 4.2 Red Blood Count 4.24 Hemoglobin 13.5 Hematocrit 39.3 Mean Corpuscular Volume 92.7 Mean Corpuscular Hemoglobin 31.8 Mean Corpuscular Hemoglobin Concent 34.3 Red Cell Distribution Width 13.9 Platelet Count 139 Mean Platelet Volume 9.4 Neutrophils (%) (Auto) 51.8 Lymphocytes (%) (Auto) 31.0 Monocytes (%) (Auto) 13.8 Eosinophils (%) (Auto) 2.9 Basophils (%) (Auto) 0.5 Neutrophils # (Auto) 2.2 Lymphocytes # (Auto) 1.3 Monocytes # (Auto) 0.6 Eosinophils # (Auto) 0.1 Basophils # (Auto) 0.0 CBC Comment AUTO DIFF Differential Comment AUTO DIFF CONFIRMED Platelet Estimate LOW Platelet Morphology Comment NORMAL Red Cell Morphology Comment NORMAL Prothrombin Time 20.1 Prothromb Time International Ratio 1.8 Blood Urea Nitrogen 18 Creatinine 1.17 Random Glucose 83 Calcium Level 8.7 Sodium Level 143 Potassium Level 3.6 Chloride Level 110 Carbon Dioxide Level 27.2 Anion Gap 6 Estimat Glomerular Filtration Rate 76 Total Creatine Kinase 704 600 521 Creatine Kinase MB 10.6 8.9 7.5 Creatine Kinase MB % 1.5 1.5 1.4 Troponin I LESS THAN 0.02 LESS THAN 0.02 LESS THAN 0.02 Result Diagram: 11/24/16 1545 11/24/16 1545 Course EKGs are sinus bradycardia without significant ST segment depressions or elevations. Caprini VTE Risk Assessment Caprini VTE Risk Assessment: Mod/High Risk (score >= 2) Caprini Risk Assessment Model Point Value = 1 Point Value = 2 Point Value = 3 Point Value = 5 Age 41-60 Minor surgery BMI > 25 kg/m2 Swollen legs Varicose veins or History of unexplained or recurrent spontaneous Oral contraceptives or hormone replacement Sepsis (< 1 month) Serious lung disease, including pneumonia (< 1 month) Abnormal pulmonary function Acute myocardial infarction Congestive heart failure (< 1 month) History of inflammatory bowel disease Medical patient at bed rest Age 61-74 Arthroscopic surgery Major open surgery (> 45 min) Laparoscopic surgery (> 45 min) Malignancy Confined to bed (> 72 hours) Immobilizing plaster cast Central venous access Age >= 75 History of VTE Family history of VTE Factor V Leiden Prothrombin [id number] Lupus anticoagulant Anticardiolipin antibodies Elevated serum homocysteine Heparin-induced thrombocytopenia Other congenital or acquired thrombophilia Stroke (< 1 month) Elective arthroplasty Hip, pelvis, or leg fracture Acute spinal cord injury (< 1 month) Prophylaxis Regimen Total Risk Factor Score Risk Level Prophylaxis Regimen 0-1 Low Early ambulation 2 Moderate Order ONE of the following: *Sequential Compression Device (SCD) *Heparin 5000 units SQ BID 3-4 Higher Order ONE of the following medications: *Heparin 5000 units SQ TID *Enoxaparin/Lovenox 40 mg SQ daily (WT < 150 kg, CrCl > 30 mL/min) *Enoxaparin/Lovenox 30 mg SQ daily (WT < 150 kg, CrCl > 10-29 mL/min) *Enoxaparin/Lovenox 30 mg SQ BID (WT < 150 kg, CrCl > 30 mL/min) AND/OR *Sequential Compression Device (SCD) 5 or more Highest Order ONE of the following medications: *Heparin 5000 units SQ TID (Preferred with Epidurals) *Enoxaparin/Lovenox 40 mg SQ daily (WT < 150 kg, CrCl > 30 mL/min) *Enoxaparin/Lovenox 30 mg SQ daily (WT < 150 kg, CrCl > 10-29 mL/min) *Enoxaparin/Lovenox 30 mg SQ BID (WT < 150 kg, CrCl > 30 mL/min) AND *Sequential Compression Device (SCD) Assessment and Plan Assessment and Plan * Atypical chest pain: Patient had serial cardiac enzymes and EKGs for ruling out purposes. He will be seen by Dr. Davila of cardiology in the chest pain center and at that time we'll determine if he needs stress testing. States that he would not be able walk on a treadmill with his chronic feet pain. * Hypertension: Continue current medication. * History of PE 4 years ago: Patient is on warfarin. He when he discussed this with his primary care physician to see if he should be on warfarin still. He did not have a recurrent pulmonary embolus. * Hyperlipidemia: Patient uses discuss this with his physician if there are other medications that he can tolerate. * GERD: We'll start Protonix. Patient is stable this time. He is agreeable to this plan. Colt Morataya Nov 25, 2016 10:40
[2016-11-25 12:00] VITALS: BP 129/75; PULSE 98; RESP 18; TEMP 97.1; O2SAT 99
[2016-11-25] MEDS ORDERED: PROT40TA PO (12:43)
--- NOTE | 2016-11-25 12:44 | HHI.DCPOC ---
Discharge Care Plan Diagnosis: (1) GERD (gastroesophageal reflux disease) (2) Chest pain (3) HTN (hypertension) Goals to Promote Your Health * To prevent worsening of your condition and complications * To maintain your health at the optimal level Directions to Meet Your Goals Take your medications as prescribed Follow your dietary instruction Follow activity as directed Keep your appointments as scheduled Take your immunizations and boosters as scheduled If your symptoms worsen call your PCP, if no PCP go to Urgent Care Center or Emergency Room Smoking is Dangerous to Your Health. Avoid second hand smoke Call the 24-hour hour crisis hotline for domestic abuse at Colt Morataya Nov 25, 2016 12:43
--- NOTE | 2016-11-25 14:46 | EKG ---
Date Performed: 11/24/2016 Time Performed: 21:22:51 PTAGE: 61 years EKG: SINUS BRADYCARDIA WITH FIRST DEGREE AV BLOCK ABNORMAL ECG PREVIOUS TRACING : 11/24/2016 19.04 Since previous tracing, no significant change noted DOCTOR: Jose Davila Interpretating Date/Time 11/25/2016 14:44:15
--- NOTE | 2016-11-25 14:48 | EKG ---
Date Performed: 11/24/2016 Time Performed: 15:25:53 PTAGE: 61 years EKG: SINUS BRADYCARDIA BORDERLINE ECG PREVIOUS TRACING : 05/31/2016 03.54 DOCTOR: Jose Davila Interpretating Date/Time 11/25/2016 14:46:39
--- NOTE | 2016-11-25 14:48 | EKG ---
Date Performed: 11/24/2016 Time Performed: 19:04:46 PTAGE: 61 years EKG: SINUS BRADYCARDIA BORDERLINE ECG PREVIOUS TRACING : 11/24/2016 15.25 Since previous tracing, no significant change noted DOCTOR: Jose Davila Interpretating Date/Time 11/25/2016 14:45:28
== END 2016-11-25 15:56 | disposition home or self-care (01) ==
LOC: NEPD 14:29 → NEDA 17:12 → NEPGCP 19:02
DX: R07.89 Other chest pain (principal); R00.2 Palpitations; I10 Essential (primary) hypertension; E11.9 Type 2 diabetes mellitus without complications; R00.0 Tachycardia, unspecified; K21.9 Gastro-esophageal reflux disease without esophagitis; E78.5 Hyperlipidemia, unspecified; Z79.01 Long term (current) use of anticoagulants
CPT/HCPCS: 71020; 80048; 82550; 82552; 84484; 85025; 85610; 93005; 96360; 99285; G0378; J7030

== ENCOUNTER 2017-04-20 17:19 | Inpatient (IN) | payer OTHER ==
[~2017-04-20] VITALS: Ht 177.8 cm; Wt 66.0 kg
[~2017-04-20 17:19] MED LIST changes: -LISI-515 PO; +LISI10TA3 PO; -METO-309 PO; +METO25TA3 PO; +PROT40TA PO; +WARF-23 PO; -WARF4TAB52 PO
[2017-04-20 17:21] VITALS: BP 141/63; PULSE 79; RESP 17; TEMP 99.8; O2SAT 99
--- NOTE | 2017-04-20 18:11 | RADRPT ---
EXAM DATE/TIME: 04/20/2017 17:39 [facility] COMPARISON: No previous studies available for comparison. INDICATIONS : Right knee pain and swelling. MEDICAL HISTORY : None. SURGICAL HISTORY : ORIF right patella. ENCOUNTER: Initial ACUITY: 4 - 6 days PAIN SCORE: 10/10 LOCATION: Right knee. FINDINGS: Severe osteoarthritis is noted involving the patellofemoral and femorotibial joints. There is a large suprapatellar knee joint effusion. Chondrocalcinosis is noted. No fracture or dislocation is noted. Hardware is noted within the proximal tibia. CONCLUSION: 1. Large suprapatellar knee joint effusion. 2. Severe osteoarthritis involving the patellofemoral and femorotibial joints. 3. Chondrocalcinosis. 4. No acute fracture or dislocation. Kiko Hansen MD on April 20, 2017 at 18:06 Board Certified Radiologist. This report was verified electronically.
[2017-04-20] MEDS ORDERED: ONDANSETRON HCL 4 MG/2 ML VIAL IV PUSH ONE (19:15)
[2017-04-20] MEDS ORDERED: MORPHINE SULFATE 4 MG/ML INJ IV PUSH ONE (19:15)
--- NOTE | 2017-04-20 19:23 | PD ---
HPI Chief Complaint: Musculoskeletal Complaint Time Seen by Provider: 19:01 Travel History International Travel<30 days: No Contact w/Intl Traveler<30days: No Traveled to known affect area: No History of Present Illness HPI Patient is a 62-year-old male presenting to the emergency department for evaluation of right knee pain and swelling. Patient states the symptoms started Monday, symptom onset was gradual. He denies any injury or trauma. There are no alleviating factors, pain is a 10 out of 10 and he states it is throbbing and sore. Pain is exacerbated with movement. He reports a history of the same for years ago. He has a remote history of knee surgery on the right knee. He denies any fever, chills, nausea, vomiting, shortness of breath or chest pain. PFSH Past Medical History Hx Anticoagulant Therapy: Yes (Coumadin) Arthritis: Yes Anxiety: Yes Cardiovascular Problems: Yes (HTN) High Cholesterol: Yes Gastrointestinal Disorders: Yes (IBS) Glaucoma: Yes Hypertension: Yes Musculoskeletal: Yes (CHRONIC BACK AND KNEE PAIN) Psychiatric: No Respiratory: Yes (PE) Immunizations Current: No Myocardial Infarction: No Ulcer: Yes (POSSIBLE) Past Surgical History Abdominal Surgery: Yes (HERNIA REPAIR) Coronary Artery Bypass Graft: No Eye Surgery: Yes (R eye surgery ) Hysterectomy: No Oral Surgery: Yes Social History Alcohol Use: No Tobacco Use: No Substance Use: No Allergies-Medications (Allergen,Severity, Reaction): Coded Allergies: aspirin (Unverified Allergy, Severe, RASH/HIVES, 10/25/16) oxycodone (Unverified Allergy, Severe, RASH/HIVES, 10/25/16) penicillin G (Unverified Allergy, Severe, 10/25/16) amlodipine (Unverified Allergy, Intermediate, MUSCLE WEAKNESS, 10/25/16) atorvastatin (Unverified Allergy, Intermediate, MUSCLE WEAKNESS, 10/25/16) pravastatin (Unverified Allergy, Intermediate, MUSCLE WEAKNESS, 10/25/16) simvastatin (Unverified Allergy, Intermediate, MUSCLE WEAKNESS, 10/25/16) Reported Meds & Prescriptions Reported Meds & Active Scripts Active Protonix (Pantoprazole Sodium) 40 Mg Tab 40 Mg PO DAILY Reported Metoprolol Tartrate 25 Mg Tab 12.5 Mg PO BID Warfarin 5 Mg Tab 5 Mg PO ,MON,,KEITH Lisinopril 10 Mg Tab 10 Mg PO BID Warfarin 7.5 Mg Tab 1.5 Mg PO MOWEFRI PRN Multiple Vitamin 1 Tab 1 Tab PO DAILY Brimonidine Opth Drops (Brimonidine Tartrate) 0.2% Soln 1 Drop LEFT EYE BID Review of Systems Except as stated in HPI: all other systems reviewed are Neg Musculoskeletal: Positive: Myalgias, Edema, Pain Skin: Positive Change in Pigmentation Physical Exam Narrative GENERAL: Well-developed, well-nourished, alert -Martiniquais male. Resting comfortably in no acute distress. SKIN: Warm and dry. Erythema noted over the lateral aspect of the right knee anteriorly. Warmth noted. Significant fluctuance to the anterior right knee. HEAD: Atraumatic. Normocephalic. EYES: Pupils equal and round. No scleral icterus. No injection or drainage. ENT: No nasal bleeding or discharge. Mucous membranes pink and moist. NECK: Trachea midline. No JVD. CARDIOVASCULAR: Regular rate and rhythm. RESPIRATORY: No accessory muscle use. Clear to auscultation. Breath sounds equal bilaterally. GASTROINTESTINAL: Abdomen soft, non-tender, nondistended. Hepatic and splenic margins not palpable. MUSCULOSKELETAL: Extremities without clubbing, cyanosis. No obvious deformities. Significant edema and fluctuance noted to the anterior right knee. NEUROLOGICAL: Awake and alert. No obvious cranial nerve deficits. Motor grossly within normal limits. Five out of 5 muscle strength in the arms and legs. Normal speech. PSYCHIATRIC: Appropriate mood and affect; insight and judgment normal. Data Data Last Documented VS Vital Signs Date Time Temp Pulse Resp B/P (MAP) Pulse Ox O2 Delivery O2 Flow Rate FiO2 04/20/17 17:21 99.8 79 17 141/63 (89) 99 Orders Orders Knee, Complete (4vws) (04/20/17 ) Synovial Fl Cell Count + Diff (04/20/17 19:14) Synovial Fluid Crystals (04/20/17 19:14) Fluid Culture And Gram Stain (04/20/17 19:14) Complete Blood Count With Diff (04/20/17 19:14) Comprehensive Metabolic Panel (04/20/17 19:14) Iv Access Insert/Monitor (04/20/17 19:14) Morphine Inj (Morphine Inj) (04/20/17 19:15) Ondansetron Inj (Zofran Inj) (04/20/17 19:15) Prothrombin Time / Inr (Pt) (04/20/17 19:21) Act Partial Throm Time (Ptt) (04/20/17 19:21) Blood Culture (04/20/17 21:00) C-Reactive Protein (Crp) (04/20/17 21:00) Westergren Sedimentation Rate (04/20/17 21:00) ^ Knee Immobilizer (04/20/17 21:00) Admit Order (Ed Use Only) (04/20/17 21:12) Labs Laboratory Tests Test 04/20/17 20:00 White Blood Count 9.2 TH/MM3 Red Blood Count 4.26 MIL/MM3 Hemoglobin 13.5 GM/DL Hematocrit 38.9 % Mean Corpuscular Volume 91.2 FL Mean Corpuscular Hemoglobin 31.7 PG Mean Corpuscular Hemoglobin Concent 34.8 % Red Cell Distribution Width 13.7 % Platelet Count 160 TH/MM3 Mean Platelet Volume 8.8 FL Neutrophils (%) (Auto) 79.4 % Lymphocytes (%) (Auto) 9.5 % Monocytes (%) (Auto) 10.9 % Eosinophils (%) (Auto) 0.1 % Basophils (%) (Auto) 0.1 % Neutrophils # (Auto) 7.3 TH/MM3 Lymphocytes # (Auto) 0.9 TH/MM3 Monocytes # (Auto) 1.0 TH/MM3 Eosinophils # (Auto) 0.0 TH/MM3 Basophils # (Auto) 0.0 TH/MM3 CBC Comment DIFF FINAL Differential Comment Prothrombin Time 21.1 SEC Prothromb Time International Ratio 2.1 RATIO Activated Partial Thromboplast Time 39.8 SEC Blood Urea Nitrogen 18 MG/DL Creatinine 1.37 MG/DL Random Glucose 97 MG/DL Total Protein 8.0 GM/DL Albumin 3.5 GM/DL Calcium Level 9.0 MG/DL Alkaline Phosphatase 62 U/L Aspartate Amino Transf (AST/SGOT) 20 U/L Alanine Aminotransferase (ALT/SGPT) 22 U/L Total Bilirubin 1.5 MG/DL Sodium Level 136 MEQ/L Potassium Level 3.6 MEQ/L Chloride Level 103 MEQ/L Carbon Dioxide Level 29.1 MEQ/L Anion Gap 4 MEQ/L Estimat Glomerular Filtration Rate 63 ML/MIN MDM Medical Decision Making Medical Screen Exam Complete: Yes Emergency Medical Condition: Yes Interpretation(s) Last Impressions Knee X-Ray 2/8/18 0000 Signed Impressions: Service Date/Time: April 17:39 - CONCLUSION: 1. Large suprapatellar knee joint effusion. 2. Severe osteoarthritis involving the patellofemoral and femorotibial joints. 3. Chondrocalcinosis. 4. No acute fracture or dislocation. Kiko Hansen MD Laboratory Tests Test 04/20/17 20:00 White Blood Count 9.2 TH/MM3 Red Blood Count 4.26 MIL/MM3 Hemoglobin 13.5 GM/DL Hematocrit 38.9 % Mean Corpuscular Volume 91.2 FL Mean Corpuscular Hemoglobin 31.7 PG Mean Corpuscular Hemoglobin Concent 34.8 % Red Cell Distribution Width 13.7 % Platelet Count 160 TH/MM3 Mean Platelet Volume 8.8 FL Neutrophils (%) (Auto) 79.4 % Lymphocytes (%) (Auto) 9.5 % Monocytes (%) (Auto) 10.9 % Eosinophils (%) (Auto) 0.1 % Basophils (%) (Auto) 0.1 % Neutrophils # (Auto) 7.3 TH/MM3 Lymphocytes # (Auto) 0.9 TH/MM3 Monocytes # (Auto) 1.0 TH/MM3 Eosinophils # (Auto) 0.0 TH/MM3 Basophils # (Auto) 0.0 TH/MM3 CBC Comment DIFF FINAL Differential Comment Prothrombin Time 21.1 SEC Prothromb Time International Ratio 2.1 RATIO Activated Partial Thromboplast Time 39.8 SEC Blood Urea Nitrogen 18 MG/DL Creatinine 1.37 MG/DL Random Glucose 97 MG/DL Total Protein 8.0 GM/DL Albumin 3.5 GM/DL Calcium Level 9.0 MG/DL Alkaline Phosphatase 62 U/L Aspartate Amino Transf (AST/SGOT) 20 U/L Alanine Aminotransferase (ALT/SGPT) 22 U/L Total Bilirubin 1.5 MG/DL Sodium Level 136 MEQ/L Potassium Level 3.6 MEQ/L Chloride Level 103 MEQ/L Carbon Dioxide Level 29.1 MEQ/L Anion Gap 4 MEQ/L Estimat Glomerular Filtration Rate 63 ML/MIN Vital Signs Date Time Temp Pulse Resp B/P (MAP) Pulse Ox O2 Delivery O2 Flow Rate FiO2 04/20/17 17:21 99.8 79 17 141/63 (96) 99 Differential Diagnosis Septic arthritis versus knee effusion versus sepsis versus Narrative Course Patient is a 62-year-old male that presented to the emergency department for evaluation of p a swollen right knee for the last 4 days. Patient's vital signs are stable, x-ray was ordered in triage and shows a large joint effusion on the right knee. Patient is on Coumadin for a previous pulmonary embolism. Discussed findings with my attending physician. Will obtain labs and assess INR prior to tapping the knee. CBC with no acute findings, INR is 2.1, chemistry with no acute findings. Due to elevated INR, patient will be admitted to observation and orthopedics will be consulted. Discussed with Dr. Esquivel who accepted admit. Patient is agreeable to stay. Admit orders placed. CRP and sed rate pending. Diagnosis Primary Impression: Knee effusion, left Admitting Information Admitting Physician Requests: Observation Condition: Stable Susan Markham Apr 20, 2017 19:23
[2017-04-20 20:36] LABS: AUTOMATED NEUTROPHIL # 7.3 TH/MM3 (1.8-7.7); BASOPHIL % 0.1 % (0.0-2.0); EOSINOPHIL % 0.1 % (0.0-4.0); HEMATOCRIT 38.9 % (39.0-51.0); HEMOGLOBIN 13.5 GM/DL (13.0-17.0); LYMPH % 9.5 % (9.0-44.0); LYMPHOCYTE # 0.9 TH/MM3 (1.0-4.8); MEAN CELL VOLUME 91.2 FL (80.0-100.0); MEAN CORPUSCULAR HEMOGLOBIN 31.7 PG (27.0-34.0); MEAN CORPUSCULAR HGB CONC 34.8 % (32.0-36.0); MEAN PLATELET VOLUME 8.8 FL (7.0-11.0); MONO % 10.9 % (0.0-8.0); NEUT % 79.4 % (16.0-70.0); PLATELET COUNT 160 TH/MM3 (150-450); RED BLOOD COUNT 4.26 MIL/MM3 (4.50-5.90); RED CELL DISTRIBUTION WIDTH 13.7 % (11.6-17.2); WHITE BLOOD COUNT 9.2 TH/MM3 (4.0-11.0)
[2017-04-20 20:55] LABS: INTERNATIONAL NORMALIZED RATIO 2.1 RATIO; PROTHROMBIN TIME - PATIENT 21.1 SEC (9.8-11.6)
[2017-04-20 20:58] LABS: ALBUMIN 3.5 GM/DL (3.4-5.0); AST (GOT) 20 U/L (15-37); BICARBONATE 29.1 MEQ/L (21.0-32.0); BLOOD UREA NITROGEN 18 MG/DL (7-18); CHLORIDE 103 MEQ/L (98-107); CREATININE 1.37 MG/DL (0.60-1.30); GLOMERULAR FILTRATION RATE 63 ML/MIN (>89); GLUCOSE,RANDOM 97 MG/DL (74-106); SODIUM (NA) 136 MEQ/L (136-145)
[2017-04-20 20:59] LABS: ALT (GPT) 22 U/L (12-78)
[2017-04-20 21:01] LABS: ALKALINE PHOSPHATASE 62 U/L (45-117); TOTAL BILIRUBIN ADULT 1.5 MG/DL (0.2-1.0)
[2017-04-20] MEDS ORDERED: NALOXONE HCL 0.4 MG/ML AMP IV PUSH PRN (23:00)
[2017-04-20] MEDS ORDERED: BISACODYL 10 MG SUPP RECTAL PRN (23:00)
[2017-04-20] MEDS ORDERED: ONDANSETRON HCL 4 MG/2 ML VIAL IVP PRN (23:00)
[2017-04-20] MEDS ORDERED: SENNOSIDES 8.6 MG TAB PO PRN (23:00)
[2017-04-20] MEDS ORDERED: Vancomycin Consult Pharmacy 1 EA OTHER SCH (23:00)
[2017-04-20] MEDS: SODIUM CHLOR 0.9% 1000 ML INJ 1,000 ML IV SCH (23:52)
[2017-04-21] VITALS: BP 124/68; PULSE 65; RESP 16; TEMP 98.9; O2SAT 98
--- NOTE | 2017-04-21 00:28 | HHI.HP ---
[facility] Ad[facility] Diagnosis RIGHT KNEE EFFUSION/POSS. SEPTIC ARTHRITIS Diagnoses: Travel History International Travel<30 Days: No Contact w/Intl Traveler <30 Da: No Traveled to Known Affected Are: No History of Present Illness 4 C2-year-old male with a past medical history significant for glaucoma, hypertension and history of PE anticoagulated on Coumadin presents to the emergency department for evaluation of right knee swelling and pain. Patient reports that his knee swelled up on Monday and has been exquisitely painful since that time. He states he is having difficulty ambulating and has to use a crutch or a cane. The knee is warm to the touch and erythematous. Patient endorses chills. No fevers. Chest pain or shortness of breath. Denies nausea/ vomiting/diarrhea. Review of Systems Except as stated in HPI: all other systems reviewed are Neg Past Family Social History Past Medical History Hypertension Glaucoma History of PE anticoagulated on Coumadin Past Surgical History Eye surgery Back surgery Right knee meniscal stapling Hernia repair Reported Medications Reported Meds & Active Scripts Active Protonix (Pantoprazole Sodium) 40 Mg Tab 40 Mg PO DAILY Reported Metoprolol Tartrate 25 Mg Tab 12.5 Mg PO BID Warfarin 5 Mg Tab 5 Mg PO ,OLY,SA,KEITH Lisinopril 10 Mg Tab 10 Mg PO BID Warfarin 7.5 Mg Tab 1.5 Mg PO MOWEFRI PRN Multiple Vitamin 1 Tab 1 Tab PO DAILY Brimonidine Opth Drops (Brimonidine Tartrate) 0.2% Soln 1 Drop LEFT EYE BID Allergies: Coded Allergies: aspirin (Unverified Allergy, Severe, RASH/HIVES, 10/25/16) oxycodone (Unverified Allergy, Severe, RASH/HIVES, 10/25/16) penicillin G (Unverified Allergy, Severe, 10/25/16) amlodipine (Unverified Allergy, Intermediate, MUSCLE WEAKNESS, 10/25/16) atorvastatin (Unverified Allergy, Intermediate, MUSCLE WEAKNESS, 10/25/16) pravastatin (Unverified Allergy, Intermediate, MUSCLE WEAKNESS, 10/25/16) simvastatin (Unverified Allergy, Intermediate, MUSCLE WEAKNESS, 10/25/16) Family History Mom with hypertension Social History Occasional alcohol. Denies tobacco, illicit drugs. Physical Exam Vital Signs Vital Signs Date Time Temp Pulse Resp B/P (MAP) Pulse Ox O2 Delivery O2 Flow Rate FiO2 04/20/17 17:21 99.8 79 17 141/63 (89) 99 Physical Exam GENERAL: male lying in bed SKIN: No rashes, ecchymoses or lesions. Cool and dry. HEAD: Atraumatic. Normocephalic. No temporal or scalp tenderness. EYES: Pupils equal round and reactive. Extraocular motions intact. No scleral icterus. No injection or drainage. ENT: Nose without bleeding, purulent drainage or septal hematoma. Throat without erythema, tonsillar hypertrophy or exudate. Uvula midline. Airway patent. NECK: Trachea midline. No JVD or lymphadenopathy. Supple, nontender, no meningeal signs. CARDIOVASCULAR: Regular rate and rhythm without murmurs, gallops, or rubs. RESPIRATORY: Clear to auscultation. Breath sounds equal bilaterally. No wheezes , rales, or rhonchi. GASTROINTESTINAL: Abdomen soft, non-tender, nondistended. No hepato-splenomegaly , or palpable masses. No guarding. MUSCULOSKELETAL: Right knee swollen and erythematous. Warm to the touch. Exquisitely tender. Range of motion limited by pain. NEUROLOGICAL: Awake and alert. Cranial nerves II through XII intact. Motor and sensory grossly within normal limits. Normal speech. Laboratory Laboratory Tests Test 04/20/17 20:00 White Blood Count 9.2 Red Blood Count 4.26 Hemoglobin 13.5 Hematocrit 38.9 Mean Corpuscular Volume 91.2 Mean Corpuscular Hemoglobin 31.7 Mean Corpuscular Hemoglobin Concent 34.8 Red Cell Distribution Width 13.7 Platelet Count 160 Mean Platelet Volume 8.8 Neutrophils (%) (Auto) 79.4 Lymphocytes (%) (Auto) 9.5 Monocytes (%) (Auto) 10.9 Eosinophils (%) (Auto) 0.1 Basophils (%) (Auto) 0.1 Neutrophils # (Auto) 7.3 Lymphocytes # (Auto) 0.9 Monocytes # (Auto) 1.0 Eosinophils # (Auto) 0.0 Basophils # (Auto) 0.0 CBC Comment DIFF FINAL Differential Comment Erythrocyte Sedimentation Rate 48 Prothrombin Time 21.1 Prothromb Time International Ratio 2.1 Activated Partial Thromboplast Time 39.8 Blood Urea Nitrogen 18 Creatinine 1.37 Random Glucose 97 Total Protein 8.0 Albumin 3.5 Calcium Level 9.0 Alkaline Phosphatase 62 Aspartate Amino Transf (AST/SGOT) 20 Alanine Aminotransferase (ALT/SGPT) 22 Total Bilirubin 1.5 Sodium Level 136 Potassium Level 3.6 Chloride Level 103 Carbon Dioxide Level 29.1 Anion Gap 4 Estimat Glomerular Filtration Rate 63 C-Reactive Protein 13.00 Date/Time Source Procedure Growth Status 04/20/17 21:35 Blood Peripheral Aerobic Blood Culture Pending Received 04/20/17 21:35 Blood Peripheral Anaerobic Blood Culture Pending Received Result Diagram: 04/20/17199904/20/171999 Vishal VTE Risk Assessment Vishal VTE Risk Assessment: Mod/High Risk (score >= 2) Danielrini Risk Assessment Model Point Value = 1 Point Value = 2 Point Value = 3 Point Value = 5 Age 41-60 Minor surgery BMI > 25 kg/m2 Swollen legs Varicose veins or History of unexplained or recurrent spontaneous Oral contraceptives or hormone replacement Sepsis (< 1 month) Serious lung disease, including pneumonia (< 1 month) Abnormal pulmonary function Acute myocardial infarction Congestive heart failure (< 1 month) History of inflammatory bowel disease Medical patient at bed rest Age 61-74 Arthroscopic surgery Major open surgery (> 45 min) Laparoscopic surgery (> 45 min) Malignancy Confined to bed (> 72 hours) Immobilizing plaster cast Central venous access Age >= 75 History of VTE Family history of VTE Factor V Leiden Prothrombin [id number] Lupus anticoagulant Anticardiolipin antibodies Elevated serum homocysteine Heparin-induced thrombocytopenia Other congenital or acquired thrombophilia Stroke (< 1 month) Elective arthroplasty Hip, pelvis, or leg fracture Acute spinal cord injury (< 1 month) Prophylaxis Regimen Total Risk Factor Score Risk Level Prophylaxis Regimen 0-1 Low Early ambulation 2 Moderate Order ONE of the following: *Sequential Compression Device (SCD) *Heparin 5000 units SQ BID 3-4 Higher Order ONE of the following medications: *Heparin 5000 units SQ TID *Enoxaparin/Lovenox 40 mg SQ daily (WT < 150 kg, CrCl > 30 mL/min) *Enoxaparin/Lovenox 30 mg SQ daily (WT < 150 kg, CrCl > 10-29 mL/min) *Enoxaparin/Lovenox 30 mg SQ BID (WT < 150 kg, CrCl > 30 mL/min) AND/OR *Sequential Compression Device (SCD) 5 or more Highest Order ONE of the following medications: *Heparin 5000 units SQ TID (Preferred with Epidurals) *Enoxaparin/Lovenox 40 mg SQ daily (WT < 150 kg, CrCl > 30 mL/min) *Enoxaparin/Lovenox 30 mg SQ daily (WT < 150 kg, CrCl > 10-29 mL/min) *Enoxaparin/Lovenox 30 mg SQ BID (WT < 150 kg, CrCl > 30 mL/min) AND *Sequential Compression Device (SCD) Assessment and Plan Assessment and Plan Assessment/plan: 1. Right knee cellulitis/cannot rule out septic arthritis Unable to perform His INR 2.1 Holding home Coumadin Orthopedic surgery consulted, appreciate recommendations Vancomycin and aztreonam (patient allergic to penicillin) Morphine for pain Monitor for signs of sepsis 2. SHIRLEY Creatinine 1.37, baseline 1.1 IV fluid hydration Monitor renal function 3. History of PE Holding Coumadin as above 4. Hypertension Continue home medications once medication reconciliation completed 5. Glaucoma Continue home medications FEN Nothing by mouth Electrolytes: Monitor and replete when necessary NS at 100 cc/hr Holding anticoagulation in anticipation of joint tap tomorrow Physician Certification 2 Midnight Certification Type: Admission for Inpatient Services Order for Inpatient Services The services are ordered in accordance with Medicare regulations or non- Medicare payer requirements, as applicable. In the case of services not specified as inpatient-only, they are appropriately provided as inpatient services in accordance with the 2-midnight benchmark. Estimated LOS (days): 2 2 days is the estimated time the patient will need to remain in the hospital, assuming treatment plan goals are met and no additional complications. Post-Hospital Plan: Not yet determined Yesy Esquivel MD Apr 21, 2017 00:28
[2017-04-21] MEDS: MORPHINE SULFATE 2 MG/ML INJ IV PUSH PRN ×5 (00:38→16:18)
[2017-04-21] MEDS ORDERED: VANCOMYCIN 1,500 MG/NS 500 ML IV ONE ×2 (01:00)
[2017-04-21] MEDS: AZTREONAM INJ 2,000 MG in SODIUM CHLORIDE 0.9% INJ 100 ML IV SCH ×4 (01:21→23:16)
[2017-04-21 05:26] LABS: INTERNATIONAL NORMALIZED RATIO 2.1 RATIO; PROTHROMBIN TIME - PATIENT 21.6 SEC (9.8-11.6)
[2017-04-21 05:27] LABS: BASOPHIL % 0.3 % (0.0-2.0); EOSINOPHIL % 0.6 % (0.0-4.0); HEMATOCRIT 37.3 % (39.0-51.0); HEMOGLOBIN 13.1 GM/DL (13.0-17.0); LYMPH % 16.6 % (9.0-44.0); LYMPHOCYTE # 1.2 TH/MM3 (1.0-4.8); MEAN CELL VOLUME 91.9 FL (80.0-100.0); MEAN CORPUSCULAR HEMOGLOBIN 32.2 PG (27.0-34.0); MEAN CORPUSCULAR HGB CONC 35.1 % (32.0-36.0); MEAN PLATELET VOLUME 8.8 FL (7.0-11.0); MONO % 12.2 % (0.0-8.0); MONOCYTE # 0.9 TH/MM3 (0-0.9); NEUT % 70.3 % (16.0-70.0); PLATELET COUNT 153 TH/MM3 (150-450); RED BLOOD COUNT 4.06 MIL/MM3 (4.50-5.90); WHITE BLOOD COUNT 7.1 TH/MM3 (4.0-11.0)
[2017-04-21 05:47] LABS: AST (GOT) 17 U/L (15-37); BICARBONATE 25.7 MEQ/L (21.0-32.0); BLOOD UREA NITROGEN 15 MG/DL (7-18); CALCIUM 8.7 MG/DL (8.5-10.1); CHLORIDE 105 MEQ/L (98-107); GLOMERULAR FILTRATION RATE 82 ML/MIN (>89); GLUCOSE,RANDOM 83 MG/DL (74-106); SODIUM (NA) 139 MEQ/L (136-145)
[2017-04-21 05:48] LABS: ALT (GPT) 17 U/L (12-78)
[2017-04-21 05:50] LABS: ALKALINE PHOSPHATASE 54 U/L (45-117); TOTAL BILIRUBIN ADULT 1.8 MG/DL (0.2-1.0); TOTAL PROTEIN 6.9 GM/DL (6.4-8.2)
[2017-04-21 08:00] VITALS: BP 117/69; PULSE 62; RESP 19; TEMP 99.2; O2SAT 95
--- NOTE | 2017-04-21 08:15 | PD.OP ---
Operative Report Date of Surgery: Apr 21, 2017 Preoperative Diagnosis: (1) Knee effusion, right Postoperative Diagnosis: (1) Knee effusion, right Procedure: Needle aspiration of right knee Surgeon: Lavon Morales Pharmacy Affairs Assistant(s): none Operation and Findings: Patient presented to the hospital with acute right knee effusion. He has a history of right knee arthritis with previous knee effusions have been aspirated. He states he has never had infection in the right knee. He also has a history of right knee surgery for his patellar tendon. He reports that his knee started swelling a few days ago. He states increased swelling as well as increased pain. He states difficulty with ambulation. He also reports pain with movement of his knee. After consent was given, the right knee was sterilely prepped with alcohol and Betadine. A 20-gauge spinal needle was used to aspirate the right knee joint. 67 cc of yellow synovial fluid was aspirated. The fluid did not appear to look purulent. There are is also mild bloody drainage. Afterwards, the area was cleaned with alcohol and a Band-Aid was applied. The fluid will be sent for cell count, Gram stain, culture and sensitivity, AFB, fungus, and crystals. I do not anticipate him to need surgery today. He tolerated the procedure well. Lavon Morales/First Lonnie TYSON Apr 21, 2017 08:15
[2017-04-21] MEDS: SODIUM CHLORIDE 0.9% FLUSH 10 ML FLUSH IV FLUSH SCH ×2 (09:17→21:15)
[2017-04-21 09:24] LABS: WBC, SYNOVIAL FLUID 18000 /MM3 (0-200)
--- NOTE | 2017-04-21 09:48 | MB ---
cc: SUSSY VAZQUEZ MD, TODD DATE OF CONSULTATION 04/21/2017 REASON FOR CONSULTATION Right knee pain and effusion. CONSULTING PHYSICIAN Dr. Sussy Vazquez. HISTORY OF PRESENT ILLNESS José Antonio is a 62-year-old male who presented to the hospital with increasing right knee pain for approximately 5 days. He had a previous right knee injury and had surgery many years ago. He has had previous episodes of similar pain. He states that previously his knee was aspirated to remove fluid. He has not had any fevers or chills. He is on Coumadin. He denies any recent new injuries to his knee. Pain is worse with movement and weightbearing. He is currently awake and alert. PAST MEDICAL HISTORY ILLNESSES 1. Hypertension. 2. Glaucoma. 3. History of pulmonary embolism. SURGERIES 1. Eye surgery. 2. Back surgery. 3. Right knee surgery. 4. Hernia repair. MEDICATIONS 1. Protonix. 2. Metoprolol. 3. Coumadin. 4. Lisinopril. 5. Eye drops. ALLERGIES 1. ASPIRIN. 2. OXYCODONE. 3. PENICILLIN. 4. AMLODIPINE. 5. ATORVASTATIN. 6. SIMVASTATIN. FAMILY HISTORY Positive for hypertension in his mother. SOCIAL HISTORY The patient denies tobacco or drug use. He does drink alcohol occasionally. REVIEW OF SYSTEMS The patient denies headache, visual changes, neck pain, chest pain, shortness of breath, abdominal pain, nausea, vomiting or recent weight loss, fevers or chills or numbness or tingling of extremities. He complains of right knee pain and swelling. PHYSICAL EXAMINATION GENERAL: The patient is a thin 62-year-old male. He is awake and alert. He appears well-developed, well-nourished. He is in no acute distress. VITAL SIGNS: Temperature 98.9, pulse 65, respirations 16, blood pressure 124/68. O2 sat is 98% on room air. HEAD: The patient is normocephalic. Pupils are equal. NECK: Soft, nontender. Trachea is midline. ABDOMEN: Soft, nontender, nondistended. EXTREMITIES: Examination of bilateral upper extremities reveals no pain with shoulder, elbow or wrist motion. He has intact sensation in radial, ulnar and median nerve distributions bilaterally. Radial pulses are palpable. Skin is intact to both hands. Examination of left leg reveals no pain with hip, knee or ankle motion. Skin is intact. Dorsalis pedis pulse is palpable. Sensation is intact. Examination of right leg reveals no pain with hip or ankle motion. Calf and thigh compartments are soft. Skin is intact in the right leg. The patient does have a moderate right knee effusion. The range of motion is from 5 degrees to 70 degrees with minimal discomfort. He has mild tenderness to palpation around the knee. His knee is stable to varus and valgus stresses. LABORATORY The patient has a white blood cell count of 7.1, hemoglobin of 13.1 and hematocrit of 37.3. BUN is 15 and creatinine is 1.1. C-reactive protein is 13.0 and sedimentation rate is 48. INR is 2.1. IMPRESSION 1. History of pulmonary embolism with current Coumadin treatment and elevated INR. 2. Right knee pain and swelling. 3. Hypertension. PLAN The treatment options were discussed with the patient. X-rays were also reviewed. The patient does have mild arthritis of the right knee with postsurgical changes from prior surgery. No acute fractures are noted. At this point the patient may be having a flare of his arthritis. He could have an infection of the knee. At this point I would recommend a right knee aspiration. Aspiration will be sent for cell count, Gram stain, crystal studies and cultures. If the aspirate appears like infection he will need surgical irrigation and debridement of his knee. The patient is in agreement with this plan. He states that previously the aspirate gave him significant knee pain relief. All questions were answered. A mid-level provider in my office, nurse practitioner or PA, may see this patient on a follow-up basis and continue to implement the objective of this plan including: Starting or adjusting medications, injections of muscle, tendon, bursa or joints, cast application, orthotic or brace application, physical therapy, further radiographic studies including x-ray, MRI, CT, ultrasounds or bone scan, vascular studies, neurologic studies, or other specialist consultations, and proceeding with surgical management as appropriate. MD LEROY Dewitt/ELIZABETH /7:09 AM /9:21 AM
[2017-04-21 12:00] VITALS: BP 128/73; PULSE 66; RESP 19; TEMP 97.8; O2SAT 96
--- NOTE | 2017-04-21 12:11 | PD.ORT.PN ---
Subjective Subjective Remarks s/p right knee pain and swelling Objective Vitals Vital Signs Date Time Temp Pulse Resp B/P (MAP) Pulse Ox O2 Delivery O2 Flow Rate FiO2 04/21/17 08:00 99.2 62 19 117/69 (85) 95 04/21/17 00:42 04/21/17 00:00 98.9 65 16 124/68 (86) 98 04/20/17 17:21 99.8 79 17 141/63 (89) 99 I/O 04/20/17 04/20/17 04/20/17 04/21/17 04/21/17 04/21/17 07:00 15:00 23:00 07:00 15:00 23:00 Intake Total 600 ml Output Total 600 ml Balance 0 ml Intake Oral 0 ml IV Total 600 ml Output Urine Total 600 ml # Voids 0 # Bowel Movements 0 Result Diagram: 04/21/17 0430 04/21/17 0430 Other Results Laboratory Tests Test 04/20/17 20:00 04/21/17 04:30 Prothromb Time International Ratio 2.1 RATIO 2.1 RATIO Prothrombin Time 21.1 SEC (9.8-11.6) 21.6 SEC (9.8-11.6) Objective Remarks RLE: knee with 2+swelling. slight tenderness over patellar tendon. ROm 5-75deg. minimal discomfort with motion. nvi. no erythema Assessment & Plan Assessment and Plan 1) s/p right knee aspirate -WBAT -cell count shows 18k white count. not concerning for infection -resume diet -no orthopedic intervention needed at this time Lavon Morales/First Lonnie TYSON Apr 21, 2017 12:11
[2017-04-21] MEDS: SODIUM CHLOR 0.9% 1000 ML INJ 1,000 ML IV SCH ×2 (13:15→18:47)
[2017-04-21 16:00] VITALS: BP 149/73; PULSE 84; RESP 20; TEMP 98.2; O2SAT 97
--- NOTE | 2017-04-21 16:40 | HHI.PR ---
Addendum to Inpatient Note Addendum Reason: Additional Documentation Additional Information Pt seen and evaluated Pt trying to find a more comfortable position as he is in a lot of pain. Morphine to bringing relief per pt. No nausea or vomiting. no CP/SOB. states the swelling has gone down a bit right knee w swelling noted but no fluctuance/effusion palpated. able to move it but has pain. moves all other extremities. Pt admitted for Right knee cellulitis/cannot rule out septic arthritis. s/p arthrocentesis this morning. f/u on synovial fluid results. Orthopedic sx following. On vanc and aztreonam. Blood cx neg x 1 day. Pain not controlled w just morphine IV. Will add po dilaudid prn. Monitor for signs of sepsis Discussed w Dr. Do and ok to resume diet and resume pt's anticoagulation. SHIRLEY- resolved. Cr 1.37--> 1.1 Monitor renal function History of PE I have resumed pt's home Coumadin dose Hypertension restarted pt's home medications Glaucoma Continue home medications DVT proph: coumadin. INR 2.1 today. pharmacy consult for coumadin management in place. Anabel Nunez MD Apr 21, 2017 16:40
[2017-04-21] MEDS ORDERED: HYDROmorphone HCL 2 MG TAB PO PRN (16:45)
[2017-04-21] MEDS ORDERED: WARFARIN SOD 7.5 MG TAB PO ONE (16:45)
[2017-04-21] MEDS: VANCOMYCIN INJ 1,250 MG in SODIUM CHLOR 0.9% 250 ML INJ 250 ML IV SCH (18:33)
[2017-04-21 20:00] VITALS: BP 140/80; PULSE 76; RESP 20; TEMP 99.8; O2SAT 96
[2017-04-21] MEDS: BRIMONIDINE TARTRATE 0.2% OPHT SOLN 5 ML BTL LEFT EYE SCH ×2 (21:00→22:54)
[2017-04-21] MEDS: HYDROmorphone HCL 2 MG TAB PO PRN (21:12)
[2017-04-21] MEDS: METOPROLOL TARTRATE 25 MG TAB PO SCH (21:12)
[2017-04-21] MEDS: LISINOPRIL 10 MG TAB PO SCH (21:12)
[2017-04-21] MEDS: WARFARIN SOD 7.5 MG TAB PO SCH (22:53)
[2017-04-22] VITALS: BP 131/73; PULSE 64; RESP 18; TEMP 100.1; O2SAT 98
[2017-04-22] MEDS: MORPHINE SULFATE 2 MG/ML INJ IV PUSH PRN ×2 (00:42→08:52)
[2017-04-22 05:00] VITALS: TEMP 99.2
[2017-04-22] MEDS: SODIUM CHLOR 0.9% 1000 ML INJ 1,000 ML IV SCH ×3 (05:48→23:47)
[2017-04-22] MEDS: HYDROmorphone HCL 2 MG TAB PO PRN ×3 (05:50→22:25)
[2017-04-22 07:23] LABS: INTERNATIONAL NORMALIZED RATIO 1.9 RATIO; PROTHROMBIN TIME - PATIENT 19.4 SEC (9.8-11.6)
[2017-04-22 08:00] VITALS: BP 132/76; PULSE 63; RESP 17; TEMP 99.7; O2SAT 97
[2017-04-22] MEDS: AZTREONAM INJ 2,000 MG in SODIUM CHLORIDE 0.9% INJ 100 ML IV SCH ×3 (08:44→23:47)
[2017-04-22] MEDS: BRIMONIDINE TARTRATE 0.2% OPHT SOLN 5 ML BTL LEFT EYE SCH ×2 (08:44→21:48)
[2017-04-22] MEDS: PANTOPRAZOLE SOD 40 MG DELAYED RELEASE TAB PO SCH (08:45)
[2017-04-22] MEDS: METOPROLOL TARTRATE 25 MG TAB PO SCH ×2 (08:45→21:46)
[2017-04-22] MEDS: LISINOPRIL 10 MG TAB PO SCH ×2 (08:45→21:47)
[2017-04-22] MEDS: SODIUM CHLORIDE 0.9% FLUSH 10 ML FLUSH IV FLUSH SCH ×2 (09:00→21:48)
[2017-04-22 12:00] VITALS: BP 126/63; PULSE 60; RESP 16; TEMP 99.2; O2SAT 97
[2017-04-22] MEDS: VANCOMYCIN INJ 1,250 MG in SODIUM CHLOR 0.9% 250 ML INJ 250 ML IV SCH (14:22)
[2017-04-22 16:00] VITALS: BP 150/76; PULSE 69; RESP 18; TEMP 100.4; O2SAT 98
--- NOTE | 2017-04-22 16:28 | HHI.PR ---
Subjective Remarks Patient says his knee pain is intermittently a 10/10, but that the pain meds are helping. He denies a history of gout. Objective Vitals Vital Signs Date Time Temp Pulse Resp B/P (MAP) Pulse Ox O2 Delivery O2 Flow Rate FiO2 04/22/17 16:00 100.4 69 18 150/76 (100) 98 04/22/17 12:00 99.2 60 16 126/63 (84) 97 04/22/17 08:00 99.7 63 17 132/76 (94) 97 04/22/17 06:50 20 04/22/17 05:00 99.2 04/22/17 00:47 20 04/22/17 00:00 100.1 64 18 131/73 (92) 98 04/21/17 20:00 99.8 76 20 140/80 (100) 96 I/O 04/21/17 04/21/17 04/21/17 04/22/17 04/22/17 04/22/17 07:00 15:00 23:00 07:00 15:00 23:00 Intake Total 600 ml 100 ml 1205 ml 240 ml Output Total 600 ml 350 ml 800 ml Balance 0 ml 100 ml 855 ml -560 ml Intake Oral 0 ml 480 ml 240 ml IV Total 600 ml 100 ml 725 ml Output Urine Total 600 ml 350 ml 800 ml # Voids 0 # Bowel Movements 0 0 Result Diagram: 04/21/1742904/21/17429 Objective Remarks GENERAL: Well-nourished, well-developed patient. SKIN: Warm and dry. HEAD: Normocephalic. EYES: No scleral icterus. No injection or drainage. NECK: Supple, trachea midline. No JVD or lymphadenopathy. CARDIOVASCULAR: Regular rate and rhythm without murmurs, gallops, or rubs. RESPIRATORY: Breath sounds equal bilaterally. No accessory muscle use. GASTROINTESTINAL: Abdomen soft, non-tender, nondistended. EXTREMITIES: Marked swelling, warmth, tenderness of right knee NEUROLOGICAL: Awake, alert, and oriented x 3. Non-focal. A/P Problem List: (1) Septic arthritis ICD Code: M00.9 - Pyogenic arthritis, unspecified (2) Knee effusion, right ICD Code: M25.461 - Effusion, right knee Assessment and Plan Likely Septic Arthritis, Right Knee Lab studies on Synovial fluid show marked elevation of WBC and Neutrophils Surprisingly he is afebrile and shows a normal CBC Continue Vancomycin/Aztreonam and follow synovial cultures Appreciate Orthopedic consultation h/o Pulmonary Embolism Continue on Coumadin anticoagulation h/o Glaucoma, HTN Continue home meds DVT Prophylaxis Coumadin Josiah Peters MD Apr 22, 2017 16:28
[2017-04-22] MEDS: WARFARIN SOD 5 MG TAB PO SCH (17:33)
[2017-04-22 20:00] VITALS: BP 153/78; PULSE 74; RESP 18; TEMP 101.1; O2SAT 97
[2017-04-22 21:00] LABS: AUTOMATED NEUTROPHIL # 4.2 TH/MM3 (1.8-7.7); BASOPHIL % 0.4 % (0.0-2.0); EOSINOPHIL # 0.1 TH/MM3 (0-0.4); EOSINOPHIL % 1.1 % (0.0-4.0); HEMATOCRIT 38.9 % (39.0-51.0); HEMOGLOBIN 13.4 GM/DL (13.0-17.0); LYMPH % 18.3 % (9.0-44.0); LYMPHOCYTE # 1.1 TH/MM3 (1.0-4.8); MEAN CORPUSCULAR HEMOGLOBIN 31.8 PG (27.0-34.0); MEAN CORPUSCULAR HGB CONC 34.5 % (32.0-36.0); MEAN PLATELET VOLUME 8.9 FL (7.0-11.0); MONO % 10.5 % (0.0-8.0); MONOCYTE # 0.6 TH/MM3 (0-0.9); NEUT % 69.7 % (16.0-70.0); PLATELET COUNT 175 TH/MM3 (150-450); RED BLOOD COUNT 4.23 MIL/MM3 (4.50-5.90); RED CELL DISTRIBUTION WIDTH 13.8 % (11.6-17.2)
[2017-04-22] MEDS: MAGNESIUM HYDROXIDE SUSP 30 ML CUP PO PRN (21:46)
[2017-04-22 21:50] LABS: WESTERGREN SEDIMENTATION RATE 48 mm/hr (0-20)
[2017-04-22] MEDS: ACETAMINOPHEN 325 MG TAB PO PRN (22:25)
[2017-04-23] VITALS: BP 114/69; PULSE 75; RESP 18; TEMP 101.6; O2SAT 94
[2017-04-23] MEDS: VANCOMYCIN INJ 1,250 MG in SODIUM CHLOR 0.9% 250 ML INJ 250 ML IV SCH ×2 (05:33→17:00)
[2017-04-23] MEDS ORDERED: PHARMACY ORDERED LAB ONE (05:45)
[2017-04-23] MEDS: HYDROmorphone HCL 2 MG TAB PO PRN ×3 (05:47→21:07)
[2017-04-23 07:39] LABS: INTERNATIONAL NORMALIZED RATIO 2.4 RATIO; PROTHROMBIN TIME - PATIENT 24.1 SEC (9.8-11.6)
[2017-04-23 08:00] VITALS: BP 125/72; PULSE 75; RESP 16; TEMP 99.3; O2SAT 97
[2017-04-23] MEDS: AZTREONAM INJ 2,000 MG in SODIUM CHLORIDE 0.9% INJ 100 ML IV SCH ×2 (08:24→16:59)
[2017-04-23] MEDS: SODIUM CHLOR 0.9% 1000 ML INJ 1,000 ML IV SCH ×2 (08:24→18:02)
[2017-04-23] MEDS: METOPROLOL TARTRATE 25 MG TAB PO SCH ×2 (08:25→21:03)
[2017-04-23] MEDS: MAGNESIUM HYDROXIDE SUSP 30 ML CUP PO PRN ×2 (08:25→18:45)
[2017-04-23] MEDS: MORPHINE SULFATE 2 MG/ML INJ IV PUSH PRN ×2 (08:25→16:59)
[2017-04-23] MEDS: LISINOPRIL 10 MG TAB PO SCH ×2 (08:25→21:02)
[2017-04-23] MEDS: BRIMONIDINE TARTRATE 0.2% OPHT SOLN 5 ML BTL LEFT EYE SCH ×2 (08:26→21:03)
[2017-04-23] MEDS: SODIUM CHLORIDE 0.9% FLUSH 10 ML FLUSH IV FLUSH SCH ×2 (08:27→21:00)
[2017-04-23] MEDS: PANTOPRAZOLE SOD 40 MG DELAYED RELEASE TAB PO SCH (09:00)
[2017-04-23 12:00] VITALS: BP 150/80; PULSE 64; RESP 17; TEMP 99.7; O2SAT 96
--- NOTE | 2017-04-23 14:50 | HHI.PR ---
Subjective Remarks 62M with a right knee that is suspect for septic arthritis. Afebrile, no worsening of pain, eating ok, no new complaints. Objective Vitals Vital Signs Date Time Temp Pulse Resp B/P (MAP) Pulse Ox O2 Delivery O2 Flow Rate FiO2 04/23/17 12:00 99.7 64 17 150/80 (103) 96 04/23/17 08:00 99.3 75 16 125/72 (89) 97 04/23/17 00:00 101.6 75 18 114/69 (84) 94 04/22/17 20:00 101.1 74 18 153/78 (103) 97 04/22/17 16:00 100.4 69 18 150/76 (100) 98 I/O 04/22/17 04/22/17 04/22/17 04/23/17 04/23/17 04/23/17 07:00 15:00 23:00 07:00 15:00 23:00 Intake Total 240 ml 100 ml 1822.5 ml Output Total 800 ml 1850 ml 850 ml Balance -560 ml 100 ml -27.5 ml -850 ml Intake Oral 240 ml 960 ml IV Total 100 ml 862.5 ml Output Urine Total 800 ml 1850 ml 850 ml # Bowel Movements 0 Result Diagram: 04/22/17202504/21/17 0430 Objective Remarks GENERAL: Well-nourished, well-developed patient. SKIN: Warm and dry. HEAD: Normocephalic. EYES: No scleral icterus. No injection or drainage. NECK: Supple, trachea midline. No JVD or lymphadenopathy. CARDIOVASCULAR: Regular rate and rhythm without murmurs, gallops, or rubs. RESPIRATORY: Breath sounds equal bilaterally. No accessory muscle use. GASTROINTESTINAL: Abdomen soft, non-tender, nondistended. EXTREMITIES: Marked swelling, warmth, tenderness of right knee NEUROLOGICAL: Awake, alert, and oriented x 3. Non-focal. A/P Problem List: (1) Septic arthritis ICD Code: M00.9 - Pyogenic arthritis, unspecified (2) Knee effusion, right ICD Code: M25.461 - Effusion, right knee Assessment and Plan Likely Septic Arthritis, Right Knee Lab studies on Synovial fluid show marked elevation of WBC and Neutrophils Remains afebrile and shows a normal CBC Continue Vancomycin/Aztreonam and follow synovial cultures Appreciate Orthopedic consultation h/o Pulmonary Embolism Continue on Coumadin anticoagulation h/o Glaucoma, HTN Continue home meds DVT Prophylaxis Coumadin Josiah Peters MD Apr 23, 2017 14:50
[2017-04-23] MEDS ORDERED: GLYCERIN ADULT 2 GM SUPP RECTAL PRN (15:00)
[2017-04-23] MEDS ORDERED: SOD PHOSPHATE/SOD BIPHOSPHATE (ADULT) ENEMA 133ML RECTAL PRN (15:00)
[2017-04-23 16:00] VITALS: BP 122/58; PULSE 69; RESP 17; TEMP 100.2; O2SAT 93
[2017-04-23] MEDS: WARFARIN SOD 5 MG TAB PO SCH (16:59)
[2017-04-23] MEDS: ACETAMINOPHEN 325 MG TAB PO PRN (18:46)
[2017-04-23 20:00] VITALS: BP 137/79; PULSE 75; RESP 18; TEMP 100.5; O2SAT 95
[2017-04-24] VITALS (7 sets, daily range): BP systolic 116–141; BP diastolic 68–76; PULSE 64–81; RESP 18–20; TEMP 98.7–100.6; O2SAT 93–96
[2017-04-24] MEDS: AZTREONAM INJ 2,000 MG in SODIUM CHLORIDE 0.9% INJ 100 ML IV SCH ×3 (00:10→17:38)
[2017-04-24] MEDS: ACETAMINOPHEN 325 MG TAB PO PRN ×3 (00:10→17:41)
[2017-04-24] MEDS: HYDROmorphone HCL 2 MG TAB PO PRN ×3 (04:03→17:36)
[2017-04-24] MEDS: VANCOMYCIN INJ 1,250 MG in SODIUM CHLOR 0.9% 250 ML INJ 250 ML IV SCH ×2 (06:02→18:33)
[2017-04-24] MEDS: MORPHINE SULFATE 2 MG/ML INJ IV PUSH PRN ×3 (06:03→21:40)
[2017-04-24] MEDS: SODIUM CHLOR 0.9% 1000 ML INJ 1,000 ML IV SCH ×2 (06:12→16:47)
--- NOTE | 2017-04-24 07:02 | PD.ORT.PN ---
Subjective Subjective Remarks s/p right knee pain and swelling with aspiration patient reports pain improved in right knee but reports that starting to swell again states increased pain and swelling in left knee now. Objective Vitals Vital Signs Date Time Temp Pulse Resp B/P (MAP) Pulse Ox O2 Delivery O2 Flow Rate FiO2 04/24/17 05:15 100.2 04/24/17 04:27 100.6 04/24/17 00:43 100.6 65 18 131/76 (94) 93 04/23/17 20:00 100.5 75 18 137/79 (98) 95 04/23/17 16:00 100.2 69 17 122/58 (79) 93 04/23/17 12:00 99.7 64 17 150/80 (103) 96 04/23/17 08:00 99.3 75 16 125/72 (89) 97 I/O 04/23/17 04/23/17 04/23/17 04/24/17 04/24/17 04/24/17 07:00 15:00 23:00 07:00 15:00 23:00 Intake Total 1080 ml Output Total 850 ml 1350 ml 1425 ml Balance -850 ml -270 ml -1425 ml Intake Oral 1080 ml Output Urine Total 850 ml 1350 ml 1425 ml # Bowel Movements 1 Result Diagram: 04/22/17202504/21/17 0430 Objective Remarks RLE: knee with 1+swelling. no erythema. LLE: 2+ swelling of suprapatellar knee. no erythema. ROM 30-80deg. nontender with mobilization of patella. Assessment & Plan Assessment and Plan 1) s/p right knee aspirate -WBAT -cell count shows 18k white count. not concerning for infection -cultures are negative -likely flare up of arthritis 2) Left Knee swelling -swelling appears to be suprapatellar and extra-articular -will monitor -since no infection in right knee, would not recommend aspiration of left knee. -conservative treatment with NSAIDs -no ortho treatment or follow up needed Lavon Morales/First Lonnie TYSON Apr 24, 2017 07:02
[2017-04-24 08:04] LABS: INTERNATIONAL NORMALIZED RATIO 2.3 RATIO; PROTHROMBIN TIME - PATIENT 23.4 SEC (9.8-11.6)
[2017-04-24] MEDS: PANTOPRAZOLE SOD 40 MG DELAYED RELEASE TAB PO SCH (09:00)
[2017-04-24] MEDS: METOPROLOL TARTRATE 25 MG TAB PO SCH ×2 (09:08→21:36)
[2017-04-24] MEDS: LISINOPRIL 10 MG TAB PO SCH ×2 (09:08→21:36)
[2017-04-24] MEDS: SODIUM CHLORIDE 0.9% FLUSH 10 ML FLUSH IV FLUSH SCH ×2 (09:09→21:38)
[2017-04-24] MEDS: PILL SPLITTER OTHER PRN (09:10)
[2017-04-24] MEDS: BRIMONIDINE TARTRATE 0.2% OPHT SOLN 5 ML BTL LEFT EYE SCH ×2 (09:11→21:41)
[2017-04-24] MEDS ORDERED: ALUMINUM/MAGNESIUM/SIMETH 30 ML CUP PO ONE (11:00)
[2017-04-24] MEDS ORDERED: KETOROLAC TROMETHAMINE 30 MG/ML (IVP) VIAL IV PUSH ONE (11:00)
[2017-04-24] MEDS ORDERED: GLYCERIN ADULT 2 GM SUPP RECTAL PRN (12:00)
[2017-04-24] MEDS ORDERED: ALUMINUM/MAGNESIUM/SIMETH 30 ML CUP PO PRN (12:00)
[2017-04-24] MEDS: SODIUM CHLORIDE 0.9% FLUSH 10 ML FLUSH IV FLUSH PRN (13:07)
--- NOTE | 2017-04-24 16:26 | HHI.PR ---
Subjective Remarks Mr Guillen complains of constipation and new onset of left knee swelling. He has a good appetite and pain is under fair control. Objective Vitals Vital Signs Date Time Temp Pulse Resp B/P (MAP) Pulse Ox O2 Delivery O2 Flow Rate FiO2 04/24/17 12:00 99.8 73 18 123/70 (87) 95 04/24/17 08:00 99.1 64 18 122/68 (86) 96 04/24/17 05:15 100.2 04/24/17 04:27 100.6 04/24/17 00:43 100.6 65 18 131/76 (94) 93 04/23/17 20:00 100.5 75 18 137/79 (98) 95 I/O 04/23/17 04/23/17 04/23/17 04/24/17 04/24/17 04/24/17 07:00 15:00 23:00 07:00 15:00 23:00 Intake Total 1080 ml Output Total 850 ml 1350 ml 1425 ml Balance -850 ml -270 ml -1425 ml Intake Oral 1080 ml Output Urine Total 850 ml 1350 ml 1425 ml # Bowel Movements 1 Result Diagram: 04/22/17202504/21/17 0430 Objective Remarks GENERAL: Well-nourished, well-developed patient. SKIN: Warm and dry. HEAD: Normocephalic. EYES: No scleral icterus. No injection or drainage. NECK: Supple, trachea midline. No JVD or lymphadenopathy. CARDIOVASCULAR: Regular rate and rhythm without murmurs, gallops, or rubs. RESPIRATORY: Breath sounds equal bilaterally. No accessory muscle use. GASTROINTESTINAL: Abdomen soft, non-tender, nondistended. EXTREMITIES: Marked swelling, warmth, tenderness of right knee NEUROLOGICAL: Awake, alert, and oriented x 3. Non-focal. A/P Problem List: (1) Septic arthritis ICD Code: M00.9 - Pyogenic arthritis, unspecified (2) Knee effusion, right ICD Code: M25.461 - Effusion, right knee Assessment and Plan Likely Septic Arthritis, Right Knee Lab studies on Synovial fluid show marked elevation of WBC and Neutrophils Remains afebrile and shows a normal CBC Orthopedics note indicates that there is no sign of infection in that knee capsule. Appreciate evaluation. Continue Vancomycin/Aztreonam for now Solu-medrol as single dose to cover for non-infectious causes in this setting. Will reevaluate effect in a.m. Fevers Ongoing, thought to be the knee, but now ortho states that the knee is not infected Will get CXR and Urinalysis to look for other sources of infection h/o Pulmonary Embolism Continue on Coumadin anticoagulation h/o Glaucoma, HTN Continue home meds DVT Prophylaxis Coumadin Josiah Peters MD Apr 24, 2017 16:26
[2017-04-24] MEDS ORDERED: methylPREDNISolone SOD SUCC 125 MG/2 ML VIAL IV PUSH ONE (16:30)
[2017-04-24] MEDS: WARFARIN SOD 7.5 MG TAB PO SCH (17:36)
[2017-04-24] MEDS ORDERED: PHARMACY ORDERED LAB ONE (17:45)
--- NOTE | 2017-04-24 18:22 | RADRPT ---
EXAM DATE/TIME: 04/24/2017 16:49 [facility] COMPARISON: CHEST PA & LAT, November 24, 2016, 16:08. INDICATIONS : Fever. MEDICAL HISTORY : Hypertension. Hypercholesterolemia. SURGICAL HISTORY : None. ENCOUNTER: Initial ACUITY: 1 day PAIN SCORE: 0/10 LOCATION: Bilateral chest FINDINGS: PA and lateral views of the chest demonstrate subsegmental air space disease at the bases. No effusio n. No pneumothorax. Heart size within normal limits. Mildly tortuous aorta. CONCLUSION: 1. Subsegmental basilar air space disease. Differential diagnosis includes mild bronchopneumonia in p atient with fever. Josemanuel Honeycutt MD on April 24, 2017 at 18:18 Board Certified Radiologist. This report was verified electronically.
[2017-04-24 19:03] LABS: BACTERIA, URINE OCC /hpf; BILIRUBIN, URINE NEG (NEG); BLOOD, URINE MOD (NEG); GLUCOSE,URINE NEG (NEG); KETONE, URINE NEG (NEG); MUCUS URINE FEW /lpf (OCC); NITRITE,URINE NEG (NEG); SQUAMOUS EPITHELIAL CELL URINE <1 /hpf (0-5); URINE COLOR YELLOW (YELLW/STRAW); URINE LEUKOCYTE ESTERASE NEG (NEG)
[2017-04-25] VITALS (7 sets, daily range): BP systolic 117–144; BP diastolic 61–87; PULSE 52–74; RESP 19–24; TEMP 95.8–97.9; O2SAT 96–98
[2017-04-25] MEDS: SODIUM CHLOR 0.9% 1000 ML INJ 1,000 ML IV SCH ×2 (01:30→02:47)
[2017-04-25] MEDS: VANCOMYCIN INJ 1,250 MG in SODIUM CHLOR 0.9% 250 ML INJ 250 ML IV SCH (05:15)
[2017-04-25 08:09] LABS: INTERNATIONAL NORMALIZED RATIO 2.6 RATIO; PROTHROMBIN TIME - PATIENT 25.9 SEC (9.8-11.6)
[2017-04-25] MEDS: SODIUM CHLORIDE 0.9% FLUSH 10 ML FLUSH IV FLUSH SCH ×2 (08:24→21:52)
[2017-04-25] MEDS: PANTOPRAZOLE SOD 40 MG DELAYED RELEASE TAB PO SCH (08:24)
[2017-04-25] MEDS: MAGNESIUM HYDROXIDE SUSP 30 ML CUP PO PRN (08:24)
[2017-04-25] MEDS: AZTREONAM INJ 2,000 MG in SODIUM CHLORIDE 0.9% INJ 100 ML IV SCH ×3 (08:24)
[2017-04-25] MEDS: METOPROLOL TARTRATE 25 MG TAB PO SCH ×2 (08:24→21:50)
[2017-04-25] MEDS: LISINOPRIL 10 MG TAB PO SCH ×2 (08:24→21:50)
[2017-04-25] MEDS: BRIMONIDINE TARTRATE 0.2% OPHT SOLN 5 ML BTL LEFT EYE SCH ×2 (08:25→21:56)
[2017-04-25] MEDS: PILL SPLITTER OTHER PRN ×2 (08:34→12:45)
[2017-04-25] MEDS: LEVOFLOXACIN 750 MG PREMIX INJ 150 ML IV SCH (12:42)
[2017-04-25] MEDS: predniSONE 50 MG TAB PO SCH (12:42)
[2017-04-25] MEDS: SODIUM CHLORIDE 0.9% FLUSH 10 ML FLUSH IV FLUSH PRN (12:47)
[2017-04-25] MEDS: HYDROmorphone HCL 2 MG TAB PO PRN (12:47)
--- NOTE | 2017-04-25 13:06 | HHI.PR ---
Subjective Remarks Mr. Guillen notes reduced swelling in his right knee (Solu-medrol given last night ). He says he still had another fever overnight. Objective Vitals Vital Signs Date Time Temp Pulse Resp B/P (MAP) Pulse Ox O2 Delivery O2 Flow Rate FiO2 04/25/17 12:00 97.1 74 20 142/79 (100) 96 04/25/17 08:00 96.6 57 20 140/74 (96) 96 04/25/17 04:00 96.0 66 20 144/78 (100) 98 04/25/17 00:00 97.1 57 20 128/69 (88) 98 04/24/17 20:00 98.7 71 20 116/68 (84) 95 04/24/17 16:00 100.3 81 18 141/68 (92) 96 04/24/17 13:11 16 I/O 04/24/17 04/24/17 04/24/17 04/25/17 04/25/17 04/25/17 06:59 14:59 22:59 06:59 14:59 22:59 Intake Total 2200 ml 1985.0 ml Output Total 1425 ml 1550 ml 700 ml Balance -1425 ml 650 ml 1285.0 ml Intake Oral 2200 ml 360 ml IV Total 1625.0 ml Output Urine Total 1425 ml 1550 ml 700 ml # Bowel Movements 0 0 Result Diagram: 04/22/17202504/21/17 0430 Objective Remarks GENERAL: Well-nourished, well-developed patient. SKIN: Warm and dry. HEAD: Normocephalic. EYES: No scleral icterus. No injection or drainage. NECK: Supple, trachea midline. No JVD or lymphadenopathy. CARDIOVASCULAR: Regular rate and rhythm without murmurs, gallops, or rubs. RESPIRATORY: Breath sounds equal bilaterally. No accessory muscle use. GASTROINTESTINAL: Abdomen soft, non-tender, nondistended. EXTREMITIES: Reduced swelling, warmth, tenderness of right knee NEUROLOGICAL: Awake, alert, and oriented x 3. Non-focal. A/P Problem List: (1) Septic arthritis ICD Code: M00.9 - Pyogenic arthritis, unspecified (2) Knee effusion, right ICD Code: M25.461 - Effusion, right knee Assessment and Plan Effusion, Right Knee Lab studies on Synovial fluid show marked elevation of WBC and Neutrophils Orthopedics note indicates that there is no sign of infection in that knee capsule. Appreciate evaluation. D/C Vancomycin/Aztreonam Solu-medrol helped with swelling, Prednisone added PO Fevers Ongoing, thought to be the knee, but now ortho states that the knee is not infected CXR showed possible bronchopneumonia, antibiotics recommended Start Levaquin for respiratory and skin/bone coverage Follow for fever resolution h/o Pulmonary Embolism Continue on Coumadin anticoagulation, daily INR h/o Glaucoma, HTN Continue home meds DVT Prophylaxis Coumadin Josiah Peters MD Apr 25, 2017 13:06
[2017-04-25] MEDS: WARFARIN SOD 5 MG TAB PO SCH (16:26)
[2017-04-25] MEDS ORDERED: PHARMACY ORDERED LAB ONE (17:45)
[2017-04-26 00:09] VITALS: TEMP 97.4
[2017-04-26] MEDS: HYDROmorphone HCL 2 MG TAB PO PRN (00:16)
[2017-04-26 08:00] VITALS: BP 131/81; PULSE 58; RESP 20; TEMP 96.7; O2SAT 99
[2017-04-26] MEDS: METOPROLOL TARTRATE 25 MG TAB PO SCH ×2 (09:00→20:23)
[2017-04-26] MEDS: SODIUM CHLORIDE 0.9% FLUSH 10 ML FLUSH IV FLUSH SCH ×2 (09:00→20:24)
[2017-04-26] MEDS: BRIMONIDINE TARTRATE 0.2% OPHT SOLN 5 ML BTL LEFT EYE SCH ×2 (09:00→20:25)
[2017-04-26] MEDS: PANTOPRAZOLE SOD 40 MG DELAYED RELEASE TAB PO SCH (09:42)
[2017-04-26] MEDS: LISINOPRIL 10 MG TAB PO SCH ×2 (09:42→20:23)
[2017-04-26] MEDS: predniSONE 50 MG TAB PO SCH (09:42)
[2017-04-26] MEDS: LEVOFLOXACIN 750 MG PREMIX INJ 150 ML IV SCH (11:00)
[2017-04-26 12:00] VITALS: BP 126/70; PULSE 57; RESP 20; TEMP 97.4; O2SAT 97
[2017-04-26 12:31] LABS: INTERNATIONAL NORMALIZED RATIO 3.6 RATIO; PROTHROMBIN TIME - PATIENT 36.4 SEC (9.8-11.6)
[2017-04-26 16:00] VITALS: BP 175/85; PULSE 58; RESP 20; TEMP 97.6; O2SAT 98
[2017-04-26] MEDS ORDERED: LEVA750T9 PO (17:43)
[2017-04-26] MEDS ORDERED: MEDR4PAK PO (17:43)
[2017-04-26] MEDS ORDERED: DOCUSATE SODIUM 50 MG/SENNA 8.6 MG TAB PO ONE (17:45)
--- NOTE | 2017-04-26 17:47 | HHI.DS ---
Discharge Summary Admission Date Apr 20, 2017 at 22:53 Discharge Date: Apr 27, 2017 Admitting Diagnosis RIGHT KNEE EFFUSION/POSS. SEPTIC ARTHRITIS (1) Septic arthritis ICD Code: M00.9 - Pyogenic arthritis, unspecified (2) Knee effusion, right ICD Code: M25.461 - Effusion, right knee (3) Bronchopneumonia ICD Code: J18.0 - Bronchopneumonia, unspecified organism Procedures needle aspiration of right knee Brief History - From Admission [age]-year-old male with a past medical history significant for glaucoma, hypertension and history of PE anticoagulated on Coumadin presents to the emergency department for evaluation of right knee swelling and pain. Patient reports that his knee swelled up on Monday and has been exquisitely painful since that time. He states he is having difficulty ambulating and has to use a crutch or a cane. The knee is warm to the touch and erythematous. Patient endorses chills. No fevers. Chest pain or shortness of breath. Denies nausea/ vomiting/diarrhea. CBC/BMP: 04/22/172025 Significant Findings Laboratory Tests Test 04/24/17 07:05 04/24/17 17:55 04/24/17 18:15 04/24/17 18:27 Prothrombin Time 23.4 SEC (9.8-11.6) Vancomycin Level Trough 12.2 MCG/ML (5.0-10.0) Urine Turbidity HAZY (CLEAR) Urine Protein 100 mg/dL (NEG-TRACE) Urine Occult Blood MOD (NEG) Urine Bacteria OCC /hpf (NONE) Urine Mucus FEW /lpf (OCC) Erythrocyte Sedimentation Rate 76 mm/hr (0-20) Test 04/24/17 18:47 04/25/17 07:15 04/26/17 11:05 C-Reactive Protein 28.00 MG/DL (0.00-0.30) Prothrombin Time 25.9 SEC (9.8-11.6) 36.4 SEC (9.8-11.6) PE at Discharge GENERAL: Well-nourished, well-developed patient. SKIN: Warm and dry. HEAD: Normocephalic. EYES: No scleral icterus. No injection or drainage. NECK: Supple, trachea midline. No JVD or lymphadenopathy. CARDIOVASCULAR: Regular rate and rhythm without murmurs, gallops, or rubs. RESPIRATORY: Breath sounds equal bilaterally. No accessory muscle use. GASTROINTESTINAL: Abdomen soft, non-tender, nondistended. EXTREMITIES: Reduced swelling, warmth, tenderness of right knee NEUROLOGICAL: Awake, alert, and oriented x 3. Non-focal. Hospital Course 62M presented with marked swelling of the right knee int he presence of fevers. Needle aspiration of the right knee did not grow out bacteria, and orthopedics determined that it was not septic arthritis. Further work up to investigate fevers showed bronchopneumonia in lungs. Antibiotics were switched , Levaquin was started and he has been afebrile for 36 hours. Steroids was given to address arthritic effusion of right knee, and swelling is reduced, he is now walking halls, fever free, appropriate for discharge. He has follow up at [facility] this Monday. Pt Condition on Discharge: Good Discharge Disposition: Discharge Home Discharge Time: <= 30 minutes Discharge Instructions DIET: Follow Instructions for: As Tolerated, No Restrictions Activities you can perform: Weight Bearing as Josiah Dickey MD Apr 26, 2017 17:47
[2017-04-26 20:00] VITALS: BP 148/85; PULSE 58; RESP 16; TEMP 97.2; O2SAT 97
[2017-04-27] VITALS: BP 151/78; PULSE 50; RESP 16; TEMP 97.3; O2SAT 96
[2017-04-27] MEDS: HYDROmorphone HCL 2 MG TAB PO PRN (00:15)
[2017-04-27 08:00] VITALS: BP 140/76; PULSE 55; RESP 20; TEMP 96.2; O2SAT 97
[2017-04-27 08:28] LABS: PROTHROMBIN TIME - PATIENT 40.2 SEC (9.8-11.6)
[2017-04-27] MEDS: BRIMONIDINE TARTRATE 0.2% OPHT SOLN 5 ML BTL LEFT EYE SCH (09:00)
[2017-04-27] MEDS: LISINOPRIL 10 MG TAB PO SCH (09:11)
[2017-04-27] MEDS: PANTOPRAZOLE SOD 40 MG DELAYED RELEASE TAB PO SCH (09:11)
[2017-04-27] MEDS: METOPROLOL TARTRATE 25 MG TAB PO SCH (09:11)
[2017-04-27] MEDS: predniSONE 50 MG TAB PO SCH (09:11)
[2017-04-27] MEDS: SODIUM CHLORIDE 0.9% FLUSH 10 ML FLUSH IV FLUSH SCH (09:12)
--- NOTE | 2017-04-27 10:34 | HHI.PR ---
Subjective Remarks Patient is still here, has a discharge order in place. Ready to go. Objective Vitals Vital Signs Date Time Temp Pulse Resp B/P (MAP) Pulse Ox O2 Delivery O2 Flow Rate FiO2 04/27/17 08:00 96.2 55 20 140/76 (97) 97 04/27/17 00:00 97.3 50 16 151/78 (102) 96 04/26/17 20:00 97.2 58 16 148/85 (106) 97 04/26/17 16:00 97.6 58 20 175/85 (115) 98 04/26/17 12:00 97.4 57 20 126/70 (88) 97 I/O 04/26/17 04/26/17 04/26/17 04/27/17 04/27/17 04/27/17 07:00 15:00 23:00 07:00 15:00 23:00 Intake Total 360 ml 0 ml 960 ml 0 ml Output Total 900 ml 500 ml 800 ml Balance -540 ml 0 ml 460 ml -800 ml 0 ml Intake Oral 360 ml 960 ml IV Total 0 ml 0 ml Output Urine Total 900 ml 500 ml 800 ml # Voids 3 # Bowel Movements 0 2 Objective Remarks GENERAL: Well-nourished, well-developed patient. Procedures needle aspiration of right knee A/P Problem List: (1) Septic arthritis ICD Code: M00.9 - Pyogenic arthritis, unspecified (2) Knee effusion, right ICD Code: M25.461 - Effusion, right knee (3) Bronchopneumonia ICD Code: J18.0 - Bronchopneumonia, unspecified organism Assessment and Plan Discharge Planning Patient is being discharged on Levaquin and a steroid taper pack. He is recommended to take a half dose of Coumadin (last night's dose skipped for INR 3.6). Recommend follow up with [place] [facility] tomorrow for INR recheck. Josiah Peters MD Apr 27, 2017 10:34
== END 2017-04-27 10:27 | disposition home or self-care (01) | DRG 564 ==
LOC: NEPD 17:19 → NEDA 21:14 → OBSVTOIN 22:53 → N07B 04-21 00:18
PROVIDERS: ADMIT Family Medicine; ATTEND Family Medicine
PROC: 0S9C3ZZ Drainage of Right Knee Joint, Percutaneous Approach (ICD-10-PCS; principal; 2017-04-21)
DX: M25.461 Effusion, right knee (principal); J18.0 Bronchopneumonia, unspecified organism; N17.9 Acute kidney failure, unspecified; M17.11 Unilateral primary osteoarthritis, right knee; I10 Essential (primary) hypertension; K59.00 Constipation, unspecified; H40.9 Unspecified glaucoma; F41.9 Anxiety disorder, unspecified; Z79.01 Long term (current) use of anticoagulants; Z86.711 Personal history of pulmonary embolism; Z88.0 Allergy status to penicillin; Z88.6 Allergy status to analgesic agent
CPT/HCPCS: 71046; 73564; 80053; 80202; 81001; 84550; 85025; 85610; 85652; 85730; 86140; 87015; 87040; 87070; 87102; 87116; 87205; 87206; 89051; 89060; J1885; J1956; J2270; J2405; J2930; J3370; J7030; J7040; J7050; J7512

== ENCOUNTER 2017-05-03 17:49 | Emergency (ER) | payer OTHER ==
[~2017-05-03 17:49] MED LIST changes: +LEVA750T9 PO; +MEDR4PAK PO
[2017-05-03 17:51] VITALS: BP 129/77; PULSE 70; RESP 14; TEMP 98.2; O2SAT 100
--- NOTE | 2017-05-03 19:04 | RADRPT ---
EXAM DATE/TIME: 05/03/2017 18:26 [facility] COMPARISON: CHEST PA & LAT, April 24, 2017, 16:49. INDICATIONS : Patient states right knee pain and swelling. MEDICAL HISTORY : None. SURGICAL HISTORY : ORIF right patella ENCOUNTER: Initial ACUITY: 1 week PAIN SCORE: 8/10 LOCATION: Right Knee FINDINGS: The patient is posterior attachment of the patellar tendon. There are advanced degenerative changes within the knee joint. There is a sizable joint effusion. Not e is made of an area of ossification just superior and lateral to the patella. Presumably, this is wi thin the suprapatella bursa. CONCLUSION: 1. There are [employer] isidro at the attachment point of the patellar tendon. The patella appears in satisfactory position. 2. Advanced tricompartmental osteoarthritis. 3. Large joint effusion. Mart Franks MD on May 03, 2017 at 19:01 Board Certified Radiologist. This report was verified electronically.
[2017-05-03] MEDS ORDERED: LIDOCAINE HCL 2% 20 ML VIAL INFIL ONE (19:30)
--- NOTE | 2017-05-03 19:48 | PD ---
HPI Chief Complaint: Edema Time Seen by Provider: 19:08 Travel History International Travel<30 days: No Contact w/Intl Traveler<30days: No Traveled to known affect area: No History of Present Illness HPI Patient is a 52-year-old male who was just in our hospital a week ago had a knee effusion that was tapped all cultures fungal bacterial all were negative went home with Darryl wrap around his knee however it rapidly accumulated once he took down the knee Darryl wrap he says in his foot there was swelling so he took the bandage off the Darryl knee and then the knee reaccumulated fluid he's back having pain in a very obviously swollen knee right-sided he's asking that we tapped again. 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 Patient denies CHF or any history of edema peripheral edema he says his knee has not swelled up to 20 years between the injury toenail but last week it started and now it's reaccumulated. Pain localized pressure-like on the right patellar area. He took antibiotics that he is continued from the inpatient that is not helping the swelling or alleviating the pain PFSH Past Medical History Hx Anticoagulant Therapy: Yes (Coumadin) Arthritis: Yes Anxiety: Yes Cancer: No Cardiovascular Problems: Yes (takes coumadin) High Cholesterol: Yes Chemotherapy: No Diminished Hearing: No Gastrointestinal Disorders: Yes (IBS) Glaucoma: Yes Genitourinary: No Hypertension: Yes Musculoskeletal: Yes Neurologic: No Psychiatric: Yes Reproductive: No Respiratory: No Immunizations Current: No Myocardial Infarction: No Radiation Therapy: No Sickle Cell Disease: No Ulcer: Yes (possible) Past Surgical History Abdominal Surgery: Yes (hernia repair) AICD: No Arteriovenous Shunt: No Cardiac Surgery: No Coronary Artery Bypass Graft: No Ear Surgery: No Endocrine Surgery: No Eye Surgery: Yes (rt eye) Genitourinary Surgery: No Gynecologic Surgery: No Hysterectomy: No Insulin Pump: No Oral Surgery: Yes Pacemaker: No Thoracic Surgery: No Social History Alcohol Use: No Tobacco Use: No Substance Use: No Allergies-Medications (Allergen,Severity, Reaction): Coded Allergies: aspirin (Unverified Allergy, Severe, RASH/HIVES, 05/03/17) oxycodone (Unverified Allergy, Severe, RASH/HIVES, 05/03/17) penicillin G (Unverified Allergy, Severe, 05/03/17) amlodipine (Unverified Allergy, Intermediate, MUSCLE WEAKNESS, 05/03/17) atorvastatin (Unverified Allergy, Intermediate, MUSCLE WEAKNESS, 05/03/17) pravastatin (Unverified Allergy, Intermediate, MUSCLE WEAKNESS, 05/03/17) simvastatin (Unverified Allergy, Intermediate, MUSCLE WEAKNESS, 05/03/17) Reported Meds & Prescriptions Reported Meds & Active Scripts Active Hydrocodone-Acetaminophen 5-300 Mg Tab 1 Tab PO Q6H PRN Medrol Dosepak (Methylprednisolone) 4 Mg Dspk 4 Mg PO DIRECTED Per Pharmacist direction Levaquin (Levofloxacin) 750 Mg Tablet 750 Mg PO DAILY 7 Days Reported Metoprolol Tartrate 25 Mg Tab 12.5 Mg PO BID Warfarin 5 Mg Tab 5 Mg PO ,MON,,KEITH Lisinopril 10 Mg Tab 10 Mg PO BID Multiple Vitamin 1 Tab 1 Tab PO DAILY Brimonidine Opth Drops (Brimonidine Tartrate) 0.2% Soln 1 Drop LEFT EYE BID Review of Systems Except as stated in HPI: all other systems reviewed are Neg Musculoskeletal: Positive: Arthralgias (swelling to right knee reaccumulation of fluid that was there with tenderness in) Physical Exam Narrative GENERAL: . Patient is nontoxic-appearing no signs of sepsis in no acute distress SKIN: Warm and dry. HEAD: Atraumatic. Normocephalic. EYES: Pupils equal and round. No scleral icterus. No injection or drainage. ENT: No nasal bleeding or discharge. Mucous membranes pink and moist. NECK: Trachea midline. No JVD. CARDIOVASCULAR: Regular rate and rhythm. RESPIRATORY: No accessory muscle use. Clear to auscultation. Breath sounds equal bilaterally. GASTROINTESTINAL: Abdomen soft, non-tender, nondistended. Hepatic and splenic margins not palpable. MUSCULOSKELETAL: Extremities right knee is significant swelling on the patella area more lateral than medial of the right knee more on the the cephalic portion than the caudal. No obvious deformities. It is not warm and is not red NEUROLOGICAL: Awake and alert. No obvious cranial nerve deficits. Motor grossly within normal limits. Five out of 5 muscle strength in the arms and legs. Normal speech. PSYCHIATRIC: Appropriate mood and affect; insight and judgment normal. Data Data Last Documented VS Vital Signs Date Time Temp Pulse Resp B/P (MAP) Pulse Ox O2 Delivery O2 Flow Rate FiO2 05/03/17 23:26 73 20 127/68 (87) 97 05/03/17 19:49 Room Air 05/03/17 17:51 98.2 Orders Orders Knee, Complete (4vws) (05/03/17 ) Lidocaine 2% Inj (Xylocaine 2% Inj) (05/03/17 19:30) Fluid Culture And Gram Stain (05/03/17 20:01) Synovial Fluid Crystals (05/03/17 20:30) Synovial Fl Cell Count + Diff (05/03/17 20:30) Ed Discharge Order (05/03/17 22:29) Oxycodone-Acetamin 5-325 Mg (Percocet (05/03/17 23:15) Labs Laboratory Tests Test 05/03/17 20:15 Synovial Fluid Color BROWN Synovial Fluid Appearance MODERATE Synovial Fluid WBC 17185 /MM3 Synovial Fluid RBC 64408 /MM3 Synovial Fluid Neutrophils 93 % Synovial Fluid Lymphocytes 7 % Synovial Fluid Crystals NONE MDM Medical Decision Making Medical Screen Exam Complete: Yes Emergency Medical Condition: Yes Differential Diagnosis Patient has a reaccumulation of fluid in his right knee gout versus septic arthritis versus benign confusion versus arthritis effusion is aseptic joint versus pseudogout versus trauma Narrative Course Patient's knee is tapped with 35 cc of straw-colored's fluid is drained by the PA sent to the lab for her stools and cell count and she is observed for 2 hours and discharged observed just to make sure there is no pus complications as the patient is on Coumadin discharged follow-up as an outpatient with orthopedics Diagnosis Primary Impression: Knee effusion, right Patient Instructions: General Instructions, Swollen Knee Joint (ED) Scripts Hydrocodone-Acetaminophen (Hydrocodone-Acetaminophen) 5-300 Mg Tab 1 TAB PO Q6H Y for PAIN, #10 TAB 0 Refills Prov: Nate Heller MD 05/03/17 Disposition: 01 DISCHARGE HOME Condition: Good Nate Heller MD May 03, 2017 19:48
--- NOTE | 2017-05-03 20:20 | PD ---
Physical Exam Date Seen by Provider: May 03, 2017 Time Seen by Provider: 20:18 Narrative 62-year-old male that presents to the ED for evaluation of right knee swelling. I was asked by my attending to drain right knee effusion. Please refer to his note. Data Data Last Documented VS Vital Signs Date Time Temp Pulse Resp B/P (MAP) Pulse Ox O2 Delivery O2 Flow Rate FiO2 05/03/17 19:49 76 20 98 Room Air 05/03/17 17:51 98.2 129/77 (94) Orders Orders Knee, Complete (4vws) (05/03/17 ) Complete Blood Count With Diff (05/03/17 18:13) Basic Metabolic Panel (Bmp) (05/03/17 18:13) Westergren Sedimentation Rate (05/03/17 18:13) Lidocaine 2% Inj (Xylocaine 2% Inj) (05/03/17 19:30) Fluid Culture And Gram Stain (05/03/17 20:01) MDM Medical Record Reviewed: Yes Supervised Visit with SAGAR: No Procedures Procedure Narrative After the risks and benefits were discussed the following procedure was performed: Draining of right knee effusion: The area was prepped and was sterilely draped. A subcutaneous wheal of 1 % Xylocaine with a total number 5 mL was used to anesthetize the area. The area was properly anesthetized. A sterile needle was used to drain fluid from the knee joint, about 30 mls were removed with improvement of symptoms for the patient. Cultures were obtained. The abscess was drained an irrigated with normal saline. Sterile dressing applied. Patient tolerated procedure well. Kike Infante May 03, 2017 20:20
[2017-05-03 22:46] LABS: WBC, SYNOVIAL FLUID 26350 /MM3 (0-200)
[2017-05-03] MEDS ORDERED: HYDR-4107 PO (23:11)
[2017-05-03] MEDS ORDERED: oxyCODONE/ACETAMINOPHEN 5 MG/325 MG TAB PO ONE (23:15)
[2017-05-03 23:26] VITALS: BP 127/68
== END 2017-05-03 23:27 | disposition home or self-care (01) ==
LOC: NEPE 17:49
DX: M25.461 Effusion, right knee (principal); I10 Essential (primary) hypertension; E78.00 Pure hypercholesterolemia, unspecified; F41.9 Anxiety disorder, unspecified; Z88.5 Allergy status to narcotic agent; Z88.0 Allergy status to penicillin; Z88.8 Allergy status to other drugs, medicaments and biological substances; Z79.01 Long term (current) use of anticoagulants; Z79.899 Other long term (current) drug therapy
CPT/HCPCS: 20610; 73564; 87070; 87205; 89051; 89060

== ENCOUNTER 2017-05-31 16:46 | Emergency (ER) | payer OTHER ==
[~2017-05-31 16:46] MED LIST changes: +HYDR-4107 PO; -PROT40TA PO; -WARF-21 PO
[2017-05-31 16:57] VITALS: BP 145/64; PULSE 74; RESP 16; TEMP 98.1; O2SAT 98
--- NOTE | 2017-05-31 17:37 | RADRPT ---
EXAM DATE/TIME: 05/31/2017 17:26 [facility] COMPARISON: CHEST PA & LAT, April 24, 2017, 16:49. INDICATIONS : Fever. MEDICAL HISTORY : Hypertension. Hypercholesterolemia. SURGICAL HISTORY : None. ENCOUNTER: Initial ACUITY: 1 day PAIN SCORE: 0/10 LOCATION: Bilateral chest FINDINGS: PA and lateral views of the chest demonstrate the lungs to be symmetrically aerated without evidence of mass, infiltrate or effusion. The cardiomediastinal contours are unremarkable. Osseous structure s are intact. CONCLUSION: No acute disease. Eddie Franks MD FACR on May 31, 2017 at 17:35 Board Certified Radiologist. This report was verified electronically.
[2017-05-31 18:34] LABS: AUTOMATED NEUTROPHIL # 2.6 TH/MM3 (1.8-7.7); BASOPHIL % 0.6 % (0.0-2.0); EOSINOPHIL # 0.1 TH/MM3 (0-0.4); EOSINOPHIL % 2.8 % (0.0-4.0); HEMATOCRIT 34.4 % (39.0-51.0); HEMOGLOBIN 11.9 GM/DL (13.0-17.0); LYMPH % 22.8 % (9.0-44.0); MEAN CORPUSCULAR HEMOGLOBIN 31.5 PG (27.0-34.0); MEAN CORPUSCULAR HGB CONC 34.6 % (32.0-36.0); MEAN PLATELET VOLUME 7.5 FL (7.0-11.0); MONO % 13.4 % (0.0-8.0); MONOCYTE # 0.6 TH/MM3 (0-0.9); NEUT % 60.4 % (16.0-70.0); PLATELET COUNT 261 TH/MM3 (150-450); RED BLOOD COUNT 3.78 MIL/MM3 (4.50-5.90); RED CELL DISTRIBUTION WIDTH 14.1 % (11.6-17.2); WHITE BLOOD COUNT 4.3 TH/MM3 (4.0-11.0)
[2017-05-31 18:39] LABS: BILIRUBIN, URINE NEG (NEG); BLOOD, URINE NEG (NEG); GLUCOSE,URINE NEG (NEG); KETONE, URINE NEG (NEG); NITRITE,URINE NEG (NEG); URINE COLOR YELLOW (YELLW/STRAW); URINE LEUKOCYTE ESTERASE NEG (NEG)
[2017-05-31 18:42] LABS: ALBUMIN 2.9 GM/DL (3.4-5.0); ALT (GPT) 35 U/L (12-78); AST (GOT) 29 U/L (15-37); BICARBONATE 31.2 MEQ/L (21.0-32.0); BLOOD UREA NITROGEN 13 MG/DL (7-18); CALCIUM 8.9 MG/DL (8.5-10.1); CHLORIDE 100 MEQ/L (98-107); CREATININE 1.06 MG/DL (0.60-1.30); GLOMERULAR FILTRATION RATE 85 ML/MIN (>89); GLUCOSE,RANDOM 80 MG/DL (74-106); SODIUM (NA) 136 MEQ/L (136-145)
[2017-05-31 18:45] LABS: ALKALINE PHOSPHATASE 69 U/L (45-117); TOTAL BILIRUBIN ADULT 0.5 MG/DL (0.2-1.0); TOTAL PROTEIN 8.6 GM/DL (6.4-8.2)
[2017-05-31 21:02] VITALS: BP 137/73; PULSE 76; RESP 17; TEMP 99.1; O2SAT 95
[2017-05-31] MEDS ORDERED: WARF-21 PO (21:10)
--- NOTE | 2017-05-31 21:29 | PD ---
HPI Chief Complaint: Fever Time Seen by Provider: 21:13 Travel History International Travel<30 days: No Contact w/Intl Traveler<30days: No Traveled to known affect area: No History of Present Illness HPI 62-year-old male complains of fever, chills, body ache. Patient states that symptoms started about 6 days ago. Patient denies any headache. Patient denies any earache sore throat. Patient states that he has occasional dry cough. Patient denies any chest pain or shortness of breath. Patient denies abdominal pain. Patient denies any nausea vomiting diarrhea. Patient denies any dysuria or frequency. Patient denies any back pain. Patient has been taking Tylenol for aching pain. PFSH Past Medical History Hx Anticoagulant Therapy: Yes (Coumadin) Arthritis: Yes Anxiety: Yes Cancer: No Cardiovascular Problems: Yes (takes coumadin) High Cholesterol: Yes Chemotherapy: No Diminished Hearing: No Gastrointestinal Disorders: Yes (ibs) Glaucoma: Yes Genitourinary: No Heparin Induced Thrombocytopen: No Hypertension: Yes Musculoskeletal: Yes Neurologic: No Psychiatric: Yes Reproductive: No Respiratory: Yes (PE) Immunizations Current: No Myocardial Infarction: No Radiation Therapy: No Sickle Cell Disease: No Ulcer: Yes (possible) Influenza Vaccination: No Past Surgical History Abdominal Surgery: Yes (hernia repair) AICD: No Arteriovenous Shunt: No Cardiac Surgery: No Coronary Artery Bypass Graft: No Ear Surgery: No Endocrine Surgery: No Eye Surgery: Yes (rt eye prosthesis) Genitourinary Surgery: No Gynecologic Surgery: No Hysterectomy: No Insulin Pump: No Oral Surgery: Yes Pacemaker: No Thoracic Surgery: No Other Surgery: Yes Social History Alcohol Use: Yes (rarely) Tobacco Use: No Substance Use: No Allergies-Medications (Allergen,Severity, Reaction): Coded Allergies: oxycodone (Unverified Allergy, Severe, RASH/HIVES, 05/31/17) penicillin G (Unverified Allergy, Severe, 05/31/17) amlodipine (Unverified Allergy, Intermediate, MUSCLE WEAKNESS, 05/31/17) atorvastatin (Unverified Allergy, Intermediate, MUSCLE WEAKNESS, 05/31/17) pravastatin (Unverified Allergy, Intermediate, MUSCLE WEAKNESS, 05/31/17) simvastatin (Unverified Allergy, Intermediate, MUSCLE WEAKNESS, 05/31/17) Reported Meds & Prescriptions Reported Meds & Active Scripts Active Reported Warfarin 7.5 Mg Tab 7.5 Mg PO MOWEFR Metoprolol Tartrate 25 Mg Tab 12.5 Mg PO BID Warfarin 5 Mg Tab 5 Mg PO ,OLY,SA,KEITH Lisinopril 10 Mg Tab 10 Mg PO BID Multiple Vitamin 1 Tab 1 Tab PO DAILY Brimonidine Opth Drops (Brimonidine Tartrate) 0.2% Soln 1 Drop LEFT EYE BID Review of Systems General / Constitutional: Positive: Fever, Chills Eyes: No: Visual changes HENT: No: Headaches Cardiovascular: No: Chest Pain or Discomfort Respiratory: No: Shortness of Breath Gastrointestinal: No: Abdominal Pain Genitourinary: No: Dysuria Musculoskeletal: No: Pain Skin: No Rash Neurologic: No: Weakness Psychiatric: No: Depression Endocrine: No: Polydipsia Hematologic/Lymphatic: No: Easy Bruising Physical Exam Narrative GENERAL: Well-nourished, well-developed patient. SKIN: Focused skin assessment warm/dry. HEAD: Normocephalic. EYES: No scleral icterus. No injection or drainage. TM: Clear. Throat: Nonerythematous. NECK: Supple, trachea midline. No JVD or lymphadenopathy. No meningismus CARDIOVASCULAR: Regular rate and rhythm without murmurs, gallops, or rubs. RESPIRATORY: Breath sounds equal bilaterally. No accessory muscle use. GASTROINTESTINAL: Abdomen soft, non-tender, nondistended. MUSCULOSKELETAL: No cyanosis, or edema. BACK: Nontender without obvious deformity. No CVA tenderness. Data Data Last Documented VS Vital Signs Date Time Temp Pulse Resp B/P (MAP) Pulse Ox O2 Delivery O2 Flow Rate FiO2 05/31/17 21:02 99.1 76 17 137/73 (94) 95 Room Air Orders Orders Complete Blood Count With Diff (05/31/17 16:59) Comprehensive Metabolic Panel (05/31/17 16:59) Urinalysis - C+S If Indicated (05/31/17 16:59) Chest, Pa & Lat (05/31/17 ) Labs Laboratory Tests Test 05/31/17 18:11 White Blood Count 4.3 TH/MM3 Red Blood Count 3.78 MIL/MM3 Hemoglobin 11.9 GM/DL Hematocrit 34.4 % Mean Corpuscular Volume 91.0 FL Mean Corpuscular Hemoglobin 31.5 PG Mean Corpuscular Hemoglobin Concent 34.6 % Red Cell Distribution Width 14.1 % Platelet Count 261 TH/MM3 Mean Platelet Volume 7.5 FL Neutrophils (%) (Auto) 60.4 % Lymphocytes (%) (Auto) 22.8 % Monocytes (%) (Auto) 13.4 % Eosinophils (%) (Auto) 2.8 % Basophils (%) (Auto) 0.6 % Neutrophils # (Auto) 2.6 TH/MM3 Lymphocytes # (Auto) 1.0 TH/MM3 Monocytes # (Auto) 0.6 TH/MM3 Eosinophils # (Auto) 0.1 TH/MM3 Basophils # (Auto) 0.0 TH/MM3 CBC Comment DIFF FINAL Differential Comment Urine Color YELLOW Urine Turbidity CLEAR Urine pH 7.0 Urine Specific [place] 1.023 Urine Protein 30 mg/dL Urine Glucose (UA) NEG mg/dL Urine Ketones NEG mg/dL Urine Occult Blood NEG Urine Nitrite NEG Urine Bilirubin NEG Urine Urobilinogen LESS THAN 2.0 MG/DL Urine Leukocyte Esterase NEG Urine RBC LESS THAN 1 /hpf Urine WBC LESS THAN 1 /hpf Microscopic Urinalysis Comment CULT NOT INDICATED Blood Urea Nitrogen 13 MG/DL Creatinine 1.06 MG/DL Random Glucose 80 MG/DL Total Protein 8.6 GM/DL Albumin 2.9 GM/DL Calcium Level 8.9 MG/DL Alkaline Phosphatase 69 U/L Aspartate Amino Transf (AST/SGOT) 29 U/L Alanine Aminotransferase (ALT/SGPT) 35 U/L Total Bilirubin 0.5 MG/DL Sodium Level 136 MEQ/L Potassium Level 4.5 MEQ/L Chloride Level 100 MEQ/L Carbon Dioxide Level 31.2 MEQ/L Anion Gap 5 MEQ/L Estimat Glomerular Filtration Rate 85 ML/MIN [facility] Medical Decision Making Medical Screen Exam Complete: Yes Emergency Medical Condition: Yes Interpretation(s) Last Impressions Chest X-Ray 05/31/17 0000 Signed Impressions: Service Date/Time: Wednesday, May 31, 2017 17:26 - CONCLUSION: No acute disease. Eddie Franks MD FACR 21:27 PM. CBC within normal limits. CMP within normal limits. UA is negative. Differential Diagnosis Differential diagnosis including viral syndrome, bronchitis, pneumonia, UTI. Narrative Course 62-year-old male with fever chills generalized weakness and dry cough. Diagnosis Primary Impression: Viral syndrome Patient Instructions: General Instructions Additional Instructions: Tylenol for fever, aching pain. Follow-up with personal physician. Return if persistent problem or worse. Med/Other Pt SpecificInfo: No Change to Meds Disposition: 01 DISCHARGE HOME Condition: Stable Jatinder Do MD May 31, 2017 21:29
== END 2017-05-31 21:57 | disposition home or self-care (01) ==
LOC: NED 16:46 → NEPD 21:57
DX: B34.9 Viral infection, unspecified (principal); I10 Essential (primary) hypertension; R05 Cough; Z79.01 Long term (current) use of anticoagulants; Z88.8 Allergy status to other drugs, medicaments and biological substances; Z88.5 Allergy status to narcotic agent; Z88.0 Allergy status to penicillin
CPT/HCPCS: 71046; 80053; 81001; 85025; 99284

== ENCOUNTER 2017-07-11 08:58 | Emergency (ER) | payer OTHER ==
[~2017-07-11] VITALS: Ht 175.3 cm; Wt 70.0 kg
[~2017-07-11 08:58] MED LIST changes: -HYDR-4107 PO; -LEVA750T9 PO; -MEDR4PAK PO; +WARF-21 PO
[2017-07-11 08:59] VITALS: BP 135/74; PULSE 64; RESP 17; TEMP 98.3; O2SAT 99
[2017-07-11] MEDS ORDERED: ACETAMINOPHEN/HYDROcodone 325 MG/5 MG TAB PO ONE (10:30)
--- NOTE | 2017-07-11 11:07 | PD ---
HPI Chief Complaint: Injury Time Seen by Provider: 10:13 Travel History International Travel<30 days: No Contact w/Intl Traveler<30days: No Traveled to known affect area: No History of Present Illness HPI 62-year-old male presents to the emergency department with complaint of left foot, left ankle, left lower leg pain after walking while at work yesterday and twisting his ankle and almost falling. He said he caught himself before he fell. He denies falling to the ground. Denies hitting his head or loss of consciousness. Denies paresthesias, loss of sensation to the affected extremity. Has been using crutches for ambulation for support. Rates pain . Has also iced, elevated, and taking ibuprofen for symptom management. Aggravated with movement, palpation, pressure. Better at rest. Primary care provider is the [facility]. Allergies as listed on the chart. History of PE and takes warfarin, hypertension. Has no other medical complaints. No other modifying factors or associated signs and symptoms. PFSH Past Medical History Hx Anticoagulant Therapy: Yes (Coumadin) Arthritis: Yes Anxiety: Yes Cancer: No Cardiovascular Problems: Yes (takes coumadin) High Cholesterol: Yes Chemotherapy: No Diminished Hearing: No Gastrointestinal Disorders: Yes (ibs) Glaucoma: Yes Genitourinary: No Heparin Induced Thrombocytopen: No Hypertension: Yes Musculoskeletal: Yes Neurologic: No Psychiatric: Yes Reproductive: No Respiratory: Yes (PE) Immunizations Current: No Myocardial Infarction: No Radiation Therapy: No Sickle Cell Disease: No Ulcer: Yes (possible) Past Surgical History Abdominal Surgery: Yes (hernia repair) AICD: No Arteriovenous Shunt: No Cardiac Surgery: No Coronary Artery Bypass Graft: No Ear Surgery: No Endocrine Surgery: No Eye Surgery: Yes (rt eye prosthesis) Genitourinary Surgery: No Gynecologic Surgery: No Hysterectomy: No Insulin Pump: No Oral Surgery: Yes Pacemaker: No Thoracic Surgery: No Other Surgery: Yes Social History Alcohol Use: Yes (rarely) Tobacco Use: No Substance Use: No Allergies-Medications (Allergen,Severity, Reaction): Coded Allergies: oxycodone (Unverified Allergy, Severe, RASH/HIVES, 07/11/17) penicillin G (Unverified Allergy, Severe, 07/11/17) amlodipine (Unverified Allergy, Intermediate, MUSCLE WEAKNESS, 07/11/17) atorvastatin (Unverified Allergy, Intermediate, MUSCLE WEAKNESS, 07/11/17) pravastatin (Unverified Allergy, Intermediate, MUSCLE WEAKNESS, 07/11/17) simvastatin (Unverified Allergy, Intermediate, MUSCLE WEAKNESS, 07/11/17) Reported Meds & Prescriptions Reported Meds & Active Scripts Active [place] (Hydrocodone-Acetaminophen) 5 Mg-325 Mg Tab 1 Tab PO Q4H PRN Reported Warfarin 7.5 Mg Tab 7.5 Mg PO MOWEFR Metoprolol Tartrate 25 Mg Tab 12.5 Mg PO BID Warfarin 5 Mg Tab 5 Mg PO ,OYL,SA,KEITH Lisinopril 10 Mg Tab 10 Mg PO BID Multiple Vitamin 1 Tab 1 Tab PO DAILY Brimonidine Opth Drops (Brimonidine Tartrate) 0.2% Soln 1 Drop LEFT EYE BID Review of Systems Except as stated in HPI: all other systems reviewed are Neg Physical Exam Narrative GENERAL: Well-nourished, well-developed black male patient, in no acute distress SKIN: Warm and dry. HEAD: Atraumatic. Normocephalic. EYES: Pupils equal and round. No scleral icterus. No injection or drainage. ENT: Mucosa pink and moist. Airway patent. NECK: Trachea midline. CARDIOVASCULAR: Regular rate. RESPIRATORY: No accessory muscle use. GASTROINTESTINAL: Flat. MUSCULOSKELETAL: Left ankle with point tenderness to the lateral and medial malleolar zone with palpation; with tenderness on palpation to the midfoot zone ; with edema, without ecchymosis, erythema. Tenderness on palpation to the left mid tib/fib area; left lower leg is without erythema, edema, ecchymosis; without obvious deformity. Left Lower extremity is supple and nontense with 2+ pedal pulse and sensory intact. No obvious deformities. No clubbing. No cyanosis. No edema. NEUROLOGICAL: Awake and alert. Oriented 3. No obvious cranial nerve deficits. Motor grossly within normal limits. Normal speech. PSYCHIATRIC: Appropriate mood and affect; insight and judgment normal. Data Data Last Documented VS Vital Signs Date Time Temp Pulse Resp B/P (MAP) Pulse Ox O2 Delivery O2 Flow Rate FiO2 07/11/17 08:59 98.3 64 17 135/74 (94) 99 Orders Orders Acetamin-Hydrocod 325-5 Mg ([place] 5-325 (07/11/17 10:30) Ankle, Complete (Syp2zpa) (07/11/17 10:28) Foot, Complete (Wbc2rty) (07/11/17 10:28) Tibia/Fibula (Ap/Lat) (07/11/17 10:28) Splint Or Brace Apply/Monitor (07/11/17 11:55) Ed Discharge Order (07/11/17 11:55) Fiberglass Short Leg Splint Ad (07/11/17 ) Fiberglass Sug[place]ong Sp Ad Sl (07/11/17 ) MDM Medical Decision Making Medical Screen Exam Complete: Yes Emergency Medical Condition: Yes Medical Record Reviewed: Yes Differential Diagnosis Fracture, sprain, injury Narrative Course 62-year-old male with left foot, ankle, lower leg injury after twisting his ankle while walking yesterday. [place] ordered. Left ankle, left foot, left tib- fib x-rays ordered. 1158: Left lower extremity x-rays conclude: Tibia/Fibula X-Ray 07/11/17 1028 Signed Impressions: Service Date/Time: Tuesday, July 11, 2017 10:41 - CONCLUSION: No evidence of recent bony injury. Cody Holden MD Foot X-Ray 07/11/17 1028 Signed Impressions: Service Date/Time: Tuesday, July 11, 2017 10:46 - CONCLUSION: No evidence of recent bony injury. Cody Holden MD Ankle X-Ray 07/11/17 1028 Signed Impressions: Service Date/Time: Tuesday, July 11, 2017 10:44 - CONCLUSION: 1. Possible avulsion injury at the tip of the lateral malleolus. 2. Mild medial soft tissue swelling. Cody Holden MD Patient provided a copy of the x-ray reports. Do splint placed to left lower extremity. Instructed patient to follow-up with orthopedics within 1 week. Patient has crutches for support. [place] prescribed for home. Instructed patient to follow up with primary care provider. Patient verbalizes understanding and agreement with treatment plan. Patient is medically cleared and stable for discharge. Discussed reasons to return to the emergency department. Patient agrees with treatment plan. The patients vital signs are stable and the patient is stable for outpatient follow-up and treatment. Patient discharged home, stable and in no acute distress. Diagnosis Primary Impression: Closed left ankle fracture Qualified Codes: S82.892A - Other fracture of left lower leg, initial encounter for closed fracture Referrals: Orthopedist Primary Care Physician Patient Instructions: Ankle Fracture (ED), Crutch Instructions (ED), General Instructions Additional Instructions: Tylenol or ibuprofen as directed and as needed for pain and inflammation Rest, ice, compress, and elevate extremity to decrease pain and inflammation Splint for support; do not remove splint until cleared by orthopedic Crutches for support Avoid aggravating activity; increase activity as tolerated Follow-up with primary care provider Follow-up with orthopedics within 1 week Return to the emergency department immediately with worsening of symptoms Med/Other Pt SpecificInfo: Prescription(s) given Scripts Hydrocodone-Acetaminophen ([place]) 5 Mg-325 Mg Tab 1 TAB PO Q4H Y for PAIN, #12 TAB 0 Refills Prov: Debbie Carrillo 07/11/17 Disposition: 01 DISCHARGE HOME Condition: Stable Debbie Carrillo July 11, 2017 11:07
--- NOTE | 2017-07-11 11:48 | RADRPT ---
EXAM DATE/TIME: 07/11/2017 10:41 [facility] COMPARISON: No previous studies available for comparison. INDICATIONS : Left lateral tib/fib pain starting distally & radiating up tibia post twist & fall yesterday. MEDICAL HISTORY : None. SURGICAL HISTORY : None. ENCOUNTER: Initial ACUITY: 1 day PAIN SCORE: 9/10 LOCATION: Left lateral distal tib/ fib FINDINGS: Two view examination of the left tibia demonstrates no evidence of fracture or dislocation. Bony min eralization is normal. The soft tissue structures are intact. CONCLUSION: No evidence of recent bony injury. Cody Holden MD on July 11, 2017 at 11:46 Board Certified Radiologist. This report was verified electronically.
--- NOTE | 2017-07-11 11:50 | RADRPT ---
EXAM DATE/TIME: 07/11/2017 10:44 [facility] COMPARISON: No previous studies available for comparison. INDICATIONS : Left ankle pain post twist & fall yesterday. MEDICAL HISTORY : None. SURGICAL HISTORY : None. ENCOUNTER: Initial ACUITY: 1 day PAIN SCORE: 9/10 LOCATION: Left lateral ankle FINDINGS: Three-view examination demonstrates normal alignment of the osseous structures about the ankle. Ther e are 2 rounded ossific densities adjacent to the tip of the lateral malleolus which could represent avulsion injury. Ankle mortise is intact. Mild medial soft tissue swelling. No radiopaque foreign bodies. Vascular calcification about the posterior ankle. CONCLUSION: 1. Possible avulsion injury at the tip of the lateral malleolus. 2. Mild medial soft tissue swelling. Cody Holden MD on July 11, 2017 at 11:47 Board Certified Radiologist. This report was verified electronically.
--- NOTE | 2017-07-11 11:51 | RADRPT ---
EXAM DATE/TIME: 07/11/2017 10:46 [facility] COMPARISON: No previous studies available for comparison. INDICATIONS : Left lateral foot pain post twist & fall yesterday. MEDICAL HISTORY : None. SURGICAL HISTORY : None. ENCOUNTER: Initial ACUITY: 1 day PAIN SCORE: 9/10 LOCATION: Left lateral foot FINDINGS: Three view examination of the left foot demonstrates no soft tissue swelling, dislocation, or fractur e. The tarsal bones appear intact. The interphalangeal and metatarsophalangeal joints are intact. The calcaneus is intact. Bony mineralization is normal. CONCLUSION: No evidence of recent bony injury. Cody Holden MD on July 11, 2017 at 11:49 Board Certified Radiologist. This report was verified electronically.
[2017-07-11] MEDS ORDERED: NORC5TAB PO (11:59)
== END 2017-07-11 12:52 | disposition home or self-care (01) ==
LOC: NEPD 08:58
DX: S82.892A Other fracture of left lower leg, initial encounter for closed fracture (principal); X50.1XXA Overexertion from prolonged static or awkward postures, initial encounter; Y93.01 Activity, walking, marching and hiking; Y99.0 Civilian activity done for income or pay; I10 Essential (primary) hypertension; E78.00 Pure hypercholesterolemia, unspecified; Z86.711 Personal history of pulmonary embolism; Z88.0 Allergy status to penicillin; Z88.5 Allergy status to narcotic agent; Z88.8 Allergy status to other drugs, medicaments and biological substances; Z79.01 Long term (current) use of anticoagulants; Z79.899 Other long term (current) drug therapy
CPT/HCPCS: 29515; 73590; 73610; 73630

== ENCOUNTER 2017-09-18 09:34 | Observation (INO) ==
--- NOTE | 2017-09-18 10:08 | XR ---
EXAM DATE: 09/18/2017 10:06 AM EDT AGE/SEX: 62 years / Male INDICATIONS: Chest pain. CLINICAL DATA: This is the patient's initial encounter. Patient reports that signs and symptoms have been present for 1 day and indicates a pain score of 1/10. MEDICAL/SURGICAL HISTORY: . AFib, pulmonary embolism x 6 years. None. [place] [facility] [place]. . FINDINGS: PA and lateral views of the chest demonstrate the lungs to be symmetrically aerated without evidence of mass, infiltrate or effusion. The cardiomediastinal contours are unremarkable. Osseous structures are intact. CONCLUSION: Negative for acute process Electronically signed by: Eddie Franks MD 09/18/2017 10:07 AM EDT
[2017-09-18 10:48] LABS: Baso % (Auto) 0.4 % (0.0-2.0); Eos % (Auto) 0.7 % (0.0-4.0); Hematocrit 40.2 % (39.0-51.0); Hemoglobin 13.7 gm/dL (13.0-17.0); Lymph % (Auto) 25.7 % (9.0-44.0); Mean Corpuscular Hemoglobin 30.5 pg (27.0-34.0); Mean Corpuscular Volume 89.8 fL (80.0-100.0); Mean Platelet Volume 8.4 fL (7.0-11.0); Mono # (Auto) 0.4 th/mm3 (0.0-0.9); Mono % (Auto) 10.2 % (0.0-8.0); Neut # (Auto) 2.5 th/mm3 (1.8-7.7); Platelet Count 148 th/mm3 (150-450); Red Blood Count 4.48 mil/mm3 (4.50-5.90); Red Cell Distribution Width 14.8 % (11.6-17.2)
[2017-09-18 10:55] LABS: INR 1.2 Ratio; Prothrombin Time 11.9 sec (9.8-11.6)
--- NOTE | 2017-09-18 11:12 | ED ---
HPI General Chief Complaint: Chest Pain Stated Complaint: medical complaint Time Seen by Provider: 09/18/17 10:37 History of Present Illness HPI narrative: This is a 62-year-old male with a history of hypertension, pulmonary embolism, hyperlipidemia, glaucoma, diet-controlled diabetes, presents today with complaints of epigastric discomfort. Patient states he felt as though he had indigestion. He states he felt frequent burping and discomfort in his epigastrium and substernal area. There is no reported nausea or diaphoresis. There is no reported shortness of breath. There is no reported pleuritic pain. He reports the pain as a 8 out of 10 on the pain scale. He reports no radiation. He states it started this morning. He does report that he stop by the store to get a majo riana that seemed to help a little bit. The patient is currently on Pradaxa for a previous pulmonary embolism with no source. Complete Quality Measures for STEMI Alert Patients Pain location: substernal and epigastric Severity scale (1-10): 8 Quality: other (Indigestion/belching) Pain radiation: none Related Data Home Medications Medication Instructions Recorded Confirmed dabigatran etexilate [Pradaxa] 75 mg PO BID 09/18/17 09/18/17 lisinopril 40 mg PO DAILY 09/18/17 09/18/17 metoprolol succinate 12.5 mg PO BID 09/18/17 09/18/17 simethicone 80 mg PO DAILY PRN 09/18/17 09/18/17 Previous Rx's Medication Instructions Recorded pantoprazole 40 mg PO DAILY #30 tab 09/18/17 Allergies Allergy/AdvReac Type Severity Reaction Status Date / Time oxycodone Allergy Severe RASH/HIVES Verified 09/18/17 10:18 penicillin G Allergy Severe Hives Verified 09/18/17 10:18 amlodipine Allergy Intermediate MUSCLE Verified 09/18/17 10:18 WEAKNESS atorvastatin Allergy Intermediate MUSCLE Verified 09/18/17 10:18 WEAKNESS pravastatin Allergy Intermediate MUSCLE Verified 09/18/17 10:18 WEAKNESS simvastatin Allergy Intermediate MUSCLE Verified 09/18/17 10:18 WEAKNESS Review of Systems Except as stated in HPI: all other systems reviewed are negative Constitutional Reports system reviewed and no additional complaints, except as docu Eyes Reports system reviewed and no additional complaints, except as docu and Reports other (History of glaucoma. No changes.) ENT Reports as per HPI, Denies bleeding gums and Denies epistaxis Cardiovascular Reports chest pain, Denies radiating jaw, neck or arm pain and Reports palpitations Respiratory Denies pain on inspiration and Denies dyspnea Gastrointestinal Reports system reviewed and no additional complaints, except as docu, Reports belching and Reports dyspepsia Genitourinary Reports system reviewed and no additional complaints, except as docu, Denies hematuria and Denies dysuria Musculoskeletal Reports system reviewed and no additional complaints, except as docu, Reports arthralgias (Chronic right knee pain) and Reports other Neurologic Denies dizziness and Denies headache(s) Endocrine Denies polydipsia and Denies polyuria Hematologic/Lymphatic Reports other [facility] Medical History Medical History Glaucoma (Acute) History of pulmonary embolus (PE) (Acute) Hyperlipidemia (Acute) Hypertension (Acute) Old capsular knee ligament disruption of right lower extremity (Acute) Prosthetic eye globe (Acute) Surgical History Surgical History History of hernia surgery (Acute) History of lumbar surgery (Acute) History of right knee surgery (Acute) Social History Social History Substance History: No History of Abuse Second Hand Smoke Exposure: No Smoking Status: Former smoker (Quit smoking in 1997. Occassional glass of wine. ) How Often Do You Have a Drink Containing Alcohol: 2 to 4 times a month Hx Recent Travel: Yes (Returned from weekend trip from [place] Monday) Recent Travel in [facility] within the Last 8 Weeks: Yes Recent Out of Country Travel within the Last 8 Weeks: No Immunization History Tetanus Immunization: Unsure Hx Influenza Vaccine This Season: No Course Initial Documented Vital Signs Temperature 97.8 F 09/18/17 09:47 Pulse Rate 62 09/18/17 09:47 Respiratory Rate 18 09/18/17 09:47 Blood Pressure 142/83 H 09/18/17 09:47 Pulse Oximetry 99 09/18/17 09:47 Last Documented Vital Signs Temperature 98.0 F 09/18/17 19:26 Pulse Rate 54 L 09/18/17 19:26 Respiratory Rate 16 09/18/17 19:26 Blood Pressure 126/71 09/18/17 19:26 Pulse Oximetry 99 09/18/17 19:26 Medical Decision Making MDM Narrative Medical decision making narrative: 62-year-old male presents today with plaints of chest pain. Patient states he has had previous pain like this before. EKG and cardiac enzymes are within normal limits. Patient will be admitted to the chest pain center for rule out protocol. Differential Diagnosis Differential Diagnosis: ACS versus peptic ulcer disease versus pulmonary embolism Lab Data Result diagrams: 09/18/17 10:37 09/18/17 10:37 Lab Results 09/18/17 09/18/17 09/18/17 Range/Units 10:37 10:37 10:37 WBC 4.0 (4.0-11.0) th/mm3 RBC 4.48 L (4.50-5.90) mil/mm3 Hgb 13.7 (13.0-17.0) gm/dL Hct 40.2 (39.0-51.0) % MCV 89.8 (80.0-100.0) fL MCH 30.5 (27.0-34.0) pg MCHC 34.0 (32.0-36.0) % RDW 14.8 (11.6-17.2) % Plt Count 148 L (150-450) th/mm3 MPV 8.4 (7.0-11.0) fL Neut % (Auto) 63.0 (16.0-70.0) % Lymph % (Auto) 25.7 (9.0-44.0) % [place] % (Auto) 10.2 H (0.0-8.0) % Eos % (Auto) 0.7 (0.0-4.0) % Baso % (Auto) 0.4 (0.0-2.0) % Neut # (Auto) 2.5 (1.8-7.7) th/mm3 Lymph # (Auto) 1.0 (1.0-4.8) th/mm3 [place] # (Auto) 0.4 (0.0-0.9) th/mm3 Eos # (Auto) 0.0 (0.0-0.4) th/mm3 Baso # (Auto) 0.0 (0.0-0.2) th/mm3 WBC Differential . Differential Comment Auto diff final PT 11.9 H (9.8-11.6) sec INR 1.2 Ratio Sodium 141 (136-145) meq/L Potassium 3.6 (3.5-5.1) meq/L Chloride 106 (98-107) meq/L Carbon Dioxide 24.4 (21.0-32.0) meq/L Anion Gap 11 (5-15) meq/L BUN 11 (7-18) mg/dL Creatinine 1.06 (0.60-1.30) mg/dL Estimated GFR 85 L (>89) mL/min Random Glucose 109 H (74-106) mg/dL Calcium 9.2 (8.5-10.1) mg/dL Total Creatine Kinase 312 H (39-308) U/L CK-MB (CK-2) 3.2 (0.5-3.6) ng/mL CK-MB (CK-2) % 1.0 (0.0-4.0) % Troponin I Less than 0.02 L (0.02-0.05) ng/mL 09/18/17 Range/Units 13:50 WBC (4.0-11.0) th/mm3 RBC (4.50-5.90) mil/mm3 Hgb (13.0-17.0) gm/dL Hct (39.0-51.0) % MCV (80.0-100.0) fL MCH (27.0-34.0) pg MCHC (32.0-36.0) % RDW (11.6-17.2) % Plt Count (150-450) th/mm3 MPV (7.0-11.0) fL Neut % (Auto) (16.0-70.0) % Lymph % (Auto) (9.0-44.0) % [place] % (Auto) (0.0-8.0) % Eos % (Auto) (0.0-4.0) % Baso % (Auto) (0.0-2.0) % Neut # (Auto) (1.8-7.7) th/mm3 Lymph # (Auto) (1.0-4.8) th/mm3 [place] # (Auto) (0.0-0.9) th/mm3 Eos # (Auto) (0.0-0.4) th/mm3 Baso # (Auto) (0.0-0.2) th/mm3 WBC Differential Differential Comment PT (9.8-11.6) sec INR Ratio Sodium (136-145) meq/L Potassium (3.5-5.1) meq/L Chloride (98-107) meq/L Carbon Dioxide (21.0-32.0) meq/L Anion Gap (5-15) meq/L BUN (7-18) mg/dL Creatinine (0.60-1.30) mg/dL Estimated GFR (>89) mL/min Random Glucose (74-106) mg/dL Calcium (8.5-10.1) mg/dL Total Creatine Kinase 304 (39-308) U/L CK-MB (CK-2) (0.5-3.6) ng/mL CK-MB (CK-2) % (0.0-4.0) % Troponin I Less than 0.02 L (0.02-0.05) ng/mL Imaging Data Radiologist's impression: Myocardial Perfusion Scan Nuc Med 09/18/17 00:00 CONCLUSION: Unremarkable myocardial perfusion scan. Chest X-Ray 09/18/17 09:51 CONCLUSION: Negative for acute process Discharge Plan Discharge Disposition Patient Disposition: 30 Still Patient Discharge Condition Condition: Good Discharge Order Discharge Orders: Discharge Order (Routine); Ordered 09/18/17 Ordered By: Jyotsna Giraldo Discharge Details Diagnosis: Chest pain, atypical, H/O blood clots, GERD (gastroesophageal reflux disease) Physicians Team ED Provider: Carlos Brown Primary Care Provider: [facility] Attending Provider: José Antonio Tolbert Discharge Interventions Interventions: ED Discharge Assessment Last Done: 09/18/17 13:18 Vital Signs Last Done: 09/18/17 12:31 Status ED Status: Left Department Discharge Information Discharge Date/Time: 09/18/17 13:27
[2017-09-18 11:15] LABS: Anion Gap 11 meq/L (5-15); Blood Urea Nitrogen 11 mg/dL (7-18); Calcium 9.2 mg/dL (8.5-10.1); Carbon Dioxide 24.4 meq/L (21.0-32.0); Chloride 106 meq/L (98-107); Glomerular Filtration Rate 85 mL/min (>89); Glucose,Random 109 mg/dL (74-106); Potassium 3.6 meq/L (3.5-5.1); Sodium 141 meq/L (136-145)
[2017-09-18 11:20] LABS: Creatine Kinase 312 U/L (39-308)
[2017-09-18 11:32] LABS: Creatine Kinase MB 3.2 ng/mL (0.5-3.6)
[2017-09-18] MEDS ORDERED: Acetaminophen 500 MG Tablet PO PRN (12:47)
--- NOTE | 2017-09-18 13:14 | P.HPCA ---
History of Present Illness Primary Care Physician: Physician 's [facility] Chief Complaint: Chest pain History of Present Illness: 62-year-old male history of hypertension, hyperlipidemia, and pulmonary embolism ( 7 years ago) presents to the ER for further evaluation of chest pain. Onset 8:30 PM, discomfort woke him from sleep. Location epigastric and midsternal area. Characterized pressure, denied pain. No radiation. Moderate in severity. No associated symptoms of nausea, vomiting, dyspnea, or diaphoresis. Strong sensation of needing to belch. Tried drinking water, made symptoms worse. Drove to local store to purchase majo riana, which did provide some relief of symptom. Duration 3 hours. No precipitating. Relieving factors laying on left side and belching. No current pressure. Recently visited [place]. Returned home via private vehicle Monday 1030. 7 hour trip. Last meal 1730 and ate small bowl of banana pudding before bed last evening. No recent illness. Recently switched from warfarin to Pradaxa last week. - Diagnosis (1) Chest pain, atypical (2) GERD (gastroesophageal reflux disease) Inpatient Certification: I certify that the inpatient services were ordered in accordance with Medicare regulations governing the order. This includes certification that hospital inpatient services are reasonable and necessary and in the case of services not specified as inpatient-only under 42 CFR 419.22(n), that they are appropriately provided as inpatient services in accordance to with the 2-midnight benchmark under 43 CFR 412.3(e) Estimated Total Length of Stay (Days): 1 Plans for Post Hospital Care: Home Review of Systems All other systems reviewed negative except as stated in [facility] - History History Provided By: Patient (No recent cardiac testing. Scheduled for chemical stress test 09/21/17 at [place]. Never required cardiac cath. No known CAD. Family history noncontributory for early onset cardiovascular disease. Endorses active lifestyle. 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 ) - Medical History Medical History: Medical History (Last Updated 09/18/17 @ 13:25 by SRINI Ledbetter) Glaucoma History of pulmonary embolus (PE) Hyperlipidemia Hypertension Old capsular knee ligament disruption of right lower extremity Prosthetic eye globe - Surgical History Surgical History: Surgical History (Last Updated 09/18/17 @ 13:25 by Jyotsna Slatinsky, [employer]MENT [employer]) History of hernia surgery History of lumbar surgery History of right knee surgery - Tobacco History Second Hand Smoke Exposure: No Tobacco Use In Past 30 Days: No Smoking Status: Former smoker (Quit smoking in 1997. Occassional glass of wine.) - Alcohol History How Often Do You Have a Drink Containing Alcohol: 2 to 4 times a month - Substance Use History Substance History: No History of Abuse - Travel History History of Recent Travel: Yes (Returned from weekend trip from [place] Monday) Recent Travel in the [facility] Within the Last 8 Weeks: Yes Recent Travel Out of the Country Within the Last 8 Weeks: No - Immunization History Tetanus Immunization: Unsure Hx Influenza Vaccine This Season: No Medications and Allergies Active Medications: Active Medications Acetaminophen (Tylenol) 500 mg PO Q4H PRN PRN Reason: HEADACHE Nitroglycerin (Nitrostat Sl) 0.4 mg SL Q5M PRN PRN Reason: CHEST PAIN Pantoprazole Sodium (Protonix) 40 mg PO DAILY BOB Sodium Chloride (Ns Flush) 2 ml IV.FLUSH BID BOB Sodium Chloride (Ns Flush) 2 ml IV.FLUSH PRN PRN PRN Reason: FLUSH AFTER USING IV ACCESS Allergies Allergy/AdvReac Type Severity Reaction Status Date / Time oxycodone Allergy Severe RASH/HIVES Verified 09/18/17 10:18 penicillin G Allergy Severe Hives Verified 09/18/17 10:18 amlodipine Allergy Intermediate MUSCLE Verified 09/18/17 10:18 WEAKNESS atorvastatin Allergy Intermediate MUSCLE Verified 09/18/17 10:18 WEAKNESS pravastatin Allergy Intermediate MUSCLE Verified 09/18/17 10:18 WEAKNESS simvastatin Allergy Intermediate MUSCLE Verified 09/18/17 10:18 WEAKNESS Home Medications Medication Instructions Recorded Confirmed Type dabigatran etexilate [Pradaxa] mg PO BID 09/18/17 History metoprolol succinate mg PO DAILY 09/18/17 History simethicone 80 mg PO DAILY PRN 09/18/17 09/18/17 History Exam Vital signs: Vital Signs 09/18/17 09:47 09/18/17 09:49 09/18/17 12:31 Temperature 97.8 F Pulse Rate 62 58 L 50 L Respiratory Rate 18 16 16 Blood Pressure 142/83 H 169/85 H 133/85 Pulse Oximetry 99 97 98 Intake & Output 09/17/17 09/18/17 09/18/17 18:59 06:59 18:59 Weight 68.039 kg - Constitutional no acute distress, thin, cooperative - Routine HEENT Exam Head: Present: normocephalic, atraumatic - Routine Neck Exam Present: supple, full ROM - Routine Respiratory Exam Present: CTA bilaterally, diminished air movement. Absent: rhonchi, stridor, wheezes, crackles - Routine Cardiovascular Exam Present: RRR, murmur, bradycardia. Absent: gallop, rubs Comments: soft systolic murmur - Routine Abdominal Exam Present: soft, normoactive bowel sounds, tenderness. Absent: distended, rebound , guarding, firm, rigid Comments: Epigastric area tender with palpation. - Routine Skin Exam Present: intact, warm, normal turgor - Routine Neurological Exam Present: alert, oriented X3, CN II-XII intact, normal tone, normal speech Results 09/18/17 10:37 09/18/17 10:37 Cardiac Enzymes 09/18/17 Range/Units 10:37 CK-MB (CK-2) 3.2 (0.5-3.6) ng/mL Troponin I Less than 0.02 L (0.02-0.05) ng/mL Coagulation 09/18/17 Range/Units 10:37 PT 11.9 H (9.8-11.6) sec CBC 09/18/17 Range/Units 10:37 WBC 4.0 (4.0-11.0) th/mm3 RBC 4.48 L (4.50-5.90) mil/mm3 Hgb 13.7 (13.0-17.0) gm/dL Hct 40.2 (39.0-51.0) % Plt Count 148 L (150-450) th/mm3 Neut # (Auto) 2.5 (1.8-7.7) th/mm3 Lymph # (Auto) 1.0 (1.0-4.8) th/mm3 [place] # (Auto) 0.4 (0.0-0.9) th/mm3 Eos # (Auto) 0.0 (0.0-0.4) th/mm3 Baso # (Auto) 0.0 (0.0-0.2) th/mm3 Comprehensive Metabolic Panel 09/18/17 Range/Units 10:37 Sodium 141 (136-145) meq/L Potassium 3.6 (3.5-5.1) meq/L Chloride 106 (98-107) meq/L Carbon Dioxide 24.4 (21.0-32.0) meq/L BUN 11 (7-18) mg/dL Creatinine 1.06 (0.60-1.30) mg/dL Calcium 9.2 (8.5-10.1) mg/dL Intake and Output 09/17/17 09/18/17 09/18/17 22:59 06:59 14:59 Other: Weight 68.039 kg Patient Weight 09/19/17 06:59 Weight 68.039 kg EKG interpretations - EKG EKG results cardiology: WNL, sinus rhythm, normal axis, normal QRS, normal ST/T EKG shows: bradycardia Caprini VTE Risk Assessment Caprini VTE Risk Assessment: Moderate/High Risk (score >= 2) Caprini Risk Assessment Model: Point Value = 1 Point Value = 2 Point Value = 3 Point Value = 5 Age 41-60 Minor surgery BMI > 25 kg/m2 Swollen legs Varicose veins or History of unexplained or recurrent spontaneous Oral contraceptives or hormone replacement Sepsis (< 1 month) Serious lung disease, including pneumonia (< 1 month) Abnormal pulmonary function Acute myocardial infarction Congestive heart failure (< 1 month) History of inflammatory bowel disease Medical patient at bed rest Age 61-74 Arthroscopic surgery Major open surgery (> 45 min) Laparoscopic surgery (> 45 min) Malignancy Confined to bed (> 72 hours) Immobilizing plaster cast Central venous access Age >= 75 History of VTE Family history of VTE Factor V Leiden Prothrombin [id number] Lupus anticoagulant Anticardiolipin antibodies Elevated serum homocysteine Heparin-induced thrombocytopenia Other congenital or acquired thrombophilia Stroke (< 1 month) Elective arthroplasty Hip, pelvis, or leg fracture Acute spinal cord injury (< 1 month) Prophylaxis Regimen: Total Risk Factor Score Risk Level Prophylaxis Regimen 0-1 Low Early ambulation 2 Moderate Order ONE of the following: *Sequential Compression Device (SCD) *Heparin 5000 units SQ BID 3-4 Higher Order ONE of the following medications: *Heparin 5000 units SQ TID *Enoxaparin/Lovenox 40 mg SQ daily (WT < 150 kg, CrCl > 30 mL/min) *Enoxaparin/Lovenox 30 mg SQ daily (WT < 150 kg, CrCl > 10-29 mL/min) *Enoxaparin/Lovenox 30 mg SQ BID (WT < 150 kg, CrCl > 30 mL/min) AND/OR *Sequential Compression Device (SCD) 5 or more Highest Order ONE of the following medications: *Heparin 5000 units SQ TID (Preferred with Epidurals) *Enoxaparin/Lovenox 40 mg SQ daily (WT < 150 kg, CrCl > 30 mL/min) *Enoxaparin/Lovenox 30 mg SQ daily (WT < 150 kg, CrCl > 10-29 mL/min) *Enoxaparin/Lovenox 30 mg SQ BID (WT < 150 kg, CrCl > 30 mL/min) AND *Sequential Compression Device (SCD) Assessment and Plan - Assessment (1) Chest pain, atypical Code(s): R07.89 - Other chest pain Status: Acute Plan: Admitted chest pain center. Begin ruling out ACS with protocol, including 3 sets of EKGs and cardiac enzymes. Will be seen and evaluated Dr. José Antonio Tolbert. Further disposition to follow. (2) GERD (gastroesophageal reflux disease) Code(s): K21.9 - Gastro-esophageal reflux disease without esophagitis Status: Acute Plan: Protonix 40 mg daily. - Plan Code Status: Full code (2) GERD (gastroesophageal reflux disease) Qualifiers: Esophagitis presence: esophagitis presence not specified Qualified Code(s): K21.9 - Gastro-esophageal reflux disease without esophagitis
[2017-09-18 14:57] LABS: Creatine Kinase 304 U/L (39-308)
[2017-09-18] MEDS ORDERED: Regadenoson Inj 0.4 MG/5 ML Syringe IV.PUSH ONE (15:39)
--- NOTE | 2017-09-18 16:53 | NM ---
EXAM DATE: 09/18/2017 4:44 PM EDT AGE/SEX: 62 years / Male INDICATIONS:Angina. Chest pain on Digoxin Midsternal chest pain. CLINICAL DATA: This is the patient's initial encounter. Patient reports that signs and symptoms have been present for 1 day and indicates a pain score of 3/10. MEDICAL/SURGICAL HISTORY: Hyperparathyroidism. Hypercholesterolemia. Inguinal hernia repair. Discectomy, lumbar. Right knee surgery. COMPARISON: No prior exams available for comparison. DOSE: 8.1 mCi Tc 99m Myoview at rest 26.9 mCi [id number] at stress 0.4 mg Lexiscan STRESS SYMPTOMS: None. EJECTION FRACTION: 60 % TECHNIQUE: The patient underwent pharmacologic stress with infusion of prescribed dose. Continuous ECG tracing was monitored during stress. Gated SPECT imaging was performed after stress and conventi onal SPECT imaging was performed at rest. The examination was performed on a SPECT/CT scanner, both attenuation and non-corrected datasets were reviewed. FINDINGS: Distribution: The maximum perfused segment at stress is in the inferior wall. Perfusion Study: The pattern of perfusion at stress is within normal limits. Gated Study: There are intact wall motion and wall thickening without hypokinetic or dyskinetic segm ents. The ejection fraction is calculated at 60%. RISK CATEGORY: Low (<1% Annual Motality Rate) CONCLUSION: Unremarkable myocardial perfusion scan. Electronically signed by: José Antonio Moore MD 09/18/2017 4:52 PM EDT
--- NOTE | 2017-09-19 17:12 | ECG ---
Date Performed: 09/18/2017 Time Performed: 13:53:51 PTAGE: 62 years EKG: SINUS BRADYCARDIA BORDERLINE ECG PREVIOUS TRACING 09/18/17 @ 10.07.10 Since the previous tracing, no significant change noted DOCTOR: Mike Lr Interpretating Date/Time 09/19/2017 17:11:47
--- NOTE | 2017-09-25 17:44 | TR ---
Date Performed: 09/18/2017 Time Performed: 15:47:53 DOCTOR: José Antonio Tolbert DRUG LIST: CLINICAL HISTORY: REASON FOR TEST: REASON FOR ENDING: OBSERVATION: CONCLUSION: COMMENTS: Lexiscan stress test was performed under standard four minute protocol. Radionuclide was injected one minute prior to ending the test. No electrocardiographic abormalities were present t o suggest ischemia. Nuclear imaging and interpretation are pending.
== END 2017-09-18 20:25 | disposition home or self-care (01) ==
LOC: NEPHCDU 09:34 → NEPE 09:34 → NEDH 09:34 → NEPHCDU 13:18
PROVIDERS: ADMIT Internal Medicine Cardiovascular Disease; ATTEND Internal Medicine Cardiovascular Disease
DX: R07.89 Other chest pain; I48.91 Unspecified atrial fibrillation; H40.9 Unspecified glaucoma; Z87.891 Personal history of nicotine dependence; K21.9 Gastro-esophageal reflux disease without esophagitis; Z86.711 Personal history of pulmonary embolism; E78.00 Pure hypercholesterolemia, unspecified; I10 Essential (primary) hypertension; Z97.0 Presence of artificial eye; E21.3 Hyperparathyroidism, unspecified; E78.5 Hyperlipidemia, unspecified

== ENCOUNTER 2018-05-05 09:11 | Observation (INO) ==
--- NOTE | 2018-05-05 09:38 | ED ---
HPI General Chief Complaint: Neck Pain/Injury Stated Complaint: shoulder/neck complaint Time Seen by Provider: 05/05/18 09:36 Source: patient Mode of arrival: ambulatory Limitations: no limitations History of Present Illness HPI Narrative: Patient states for the past 2 days he has progressively had increasing spasming type pain to the tip of the right shoulder blade area. This pain worsens with twisting motion and movement of his right arm or neck. Patient denies any chest pain or shortness of breath. Patient also denies any fever cough runny nose sore throat nausea vomiting or diarrhea. Patient also strictly denies any diaphoretic episodes, chest pain abdominal pain flank pain or back pain. Onset (ago): day(s) (2) Place: Reports home Severity: moderate Severity scale (1-10): 5 Quality: Reports spasming Duration: intermittent Relieving factors: none Exacerbating factors: movement of extremity Associated symptoms: Reports none Treatments prior to arrival: Reports none Related Data Home Medications Medication Instructions Recorded Confirmed dabigatran etexilate [Pradaxa] 75 mg PO BID 09/18/17 05/05/18 lisinopril 40 mg PO DAILY 09/18/17 05/05/18 metoprolol succinate 12.5 mg PO BID 09/18/17 05/05/18 simethicone 80 mg PO DAILY PRN 09/18/17 05/05/18 rosuvastatin 2.5 mg PO DAILY 05/05/18 05/05/18 Allergies Allergy/AdvReac Type Severity Reaction Status Date / Time oxycodone Allergy Severe RASH/HIVES Verified 05/05/18 09:20 penicillin G Allergy Severe Hives Verified 05/05/18 09:20 amlodipine Allergy Intermediate MUSCLE Verified 05/05/18 09:20 WEAKNESS atorvastatin Allergy Intermediate MUSCLE Verified 05/05/18 09:20 WEAKNESS pravastatin Allergy Intermediate MUSCLE Verified 05/05/18 09:20 WEAKNESS simvastatin Allergy Intermediate MUSCLE Verified 05/05/18 09:20 WEAKNESS Review of Systems ROS: all other systems reviewed are negative PMFSH History History Provided By: Patient Medical History Medical History Glaucoma (Acute) History of pulmonary embolus (PE) (Acute) Hyperlipidemia (Acute) Hypertension (Acute) Old capsular knee ligament disruption of right lower extremity (Acute) Prosthetic eye globe (Acute) Surgical History Surgical History History of hernia surgery (Acute) History of lumbar surgery (Acute) History of right knee surgery (Acute) Social History Social History Substance History: No History of Abuse Second Hand Smoke Exposure: No Smoking Status: Former smoker Tobacco Type: Cigarettes How Often Do You Have a Drink Containing Alcohol: Monthly or less Hx Recent Travel: Yes (Returned from weekend trip from [place] Monday) Recent Travel in [facility] within the Last 8 Weeks: No Recent Out of Country Travel within the Last 8 Weeks: No Immunization History Tetanus Immunization: <5 Years Exam Narrative Exam Narrative: GENERAL: -Cypriot male patient in no major distress. SKIN: Warm and dry. HEAD: Atraumatic. Normocephalic. EYES: Pupils equal and round. No scleral icterus. No injection or drainage. ENT: No nasal bleeding or discharge. Mucous membranes pink and moist. NECK: Trachea midline. No JVD. CARDIOVASCULAR: Regular rate and rhythm. no rubs or gallops RESPIRATORY: No accessory muscle use. Clear to auscultation. Breath sounds equal bilaterally. GASTROINTESTINAL: Abdomen soft, non-tender, nondistended. No rebound or guarding ... Specifically no right upper quadrant tenderness to palpation, negative Vaughn's MUSCULOSKELETAL: Extremities without clubbing, cyanosis, or edema. No obvious deformities. Also specifically the patient did not seem to have any tenderness to palpation that was reproducible along the iliolumbar is ileus cervicalis posterior sternocleidomastoid or trapezius NEUROLOGICAL: Awake and alert. No obvious cranial nerve deficits. Motor grossly within normal limits. Five out of 5 muscle strength in the arms and legs. Normal speech. PSYCHIATRIC: Appropriate mood and affect; insight and judgment normal. Course Initial Documented Vital Signs Temperature 98.9 F 05/05/18 09:14 Pulse Rate 58 L 05/05/18 09:14 Respiratory Rate 17 05/05/18 09:14 Blood Pressure 142/64 H 05/05/18 09:14 Pulse Oximetry 99 05/05/18 09:14 Last Documented Vital Signs Temperature 98.9 F 05/05/18 09:14 Pulse Rate 59 L 05/05/18 12:17 Respiratory Rate 18 05/05/18 12:17 Blood Pressure 136/61 05/05/18 12:17 Pulse Oximetry 97 05/05/18 12:17 Medical Decision Making MDM Narrative Medical decision making narrative: Although the patient verbally describes the pain as a spasming type of event and appears to be musculoskeletal in source there are some clinical inconsistencies. Therefore an atypical chest pain workup will be initiated to rule out STEMI non-STEMI dissection aneurysm..... The patient has a known history of a pulmonary embolus and is on Pradaxa for it. However going back to [address] chest or abdomen films at this facility, therefore will perform CT abdomen and pelvis as well as chest evaluating for aortic pathology. If the entire workup is negative I would advise the patient be admitted to chest pain center for further evaluation with echo cardiology evaluation and serial cardiac enzymes to rule out non-STEMI No leukocytosis no left shift no anemia normal platelet count Coagulation profile within normal limits Normal electrolytes Normal kidney liver pancreatic functions Negative set of cardiac enzymes CT pending as of 1126 The patient was seen as part of the RMA process by my attending physician, Dr. Stack. I, SRINI Ohara, have reviewed Dr. Stack's note, recommended plan of care and disposition. CT thoracic aorta concludes: There is no evidence for dissection. Prominent ascending aorta without aortic valve calcifications. Correlation is suggested2. There is no significant at this chronic vascular disease3. Prominent prostate obturator adenopathy both in the right and left. Further evaluation suggested. Patient provided a copy of the CT report and findings discussed and instructed patient to follow-up for further evaluation of prostate findings. Patient verbalized understanding and agreement. Patient will be admitted to the chest pain center for further treatment and evaluation. Chest pain center orders entered. Medical Screen Exam Complete: Yes Emergency Medical Condition: Yes Differential Diagnosis Differential Diagnosis: STEMI non-STEMI dissection aneurysm PE Lab Data Result diagrams: 05/05/18 09:56 05/05/18 09:56 Lab Results 05/05/18 05/05/18 05/05/18 Range/Units 09:56 09:56 09:56 WBC 5.6 (4.0-11.0) th/mm3 RBC 4.27 L (4.50-5.90) mil/mm3 Hgb 14.4 (13.0-17.0) gm/dL Hct 40.4 (39.0-51.0) % MCV 94.6 (80.0-100.0) fL MCH 33.7 (27.0-34.0) pg MCHC 35.6 (32.0-36.0) % RDW 13.4 (11.6-17.2) % Plt Count 188 (150-450) th/mm3 MPV 8.4 (7.0-11.0) fL Neut % (Auto) 76.0 H (16.0-70.0) % Lymph % (Auto) 12.5 (9.0-44.0) % [place] % (Auto) 10.6 H (0.0-8.0) % Eos % (Auto) 0.5 (0.0-4.0) % Baso % (Auto) 0.4 (0.0-2.0) % Neut # (Auto) 4.3 (1.8-7.7) th/mm3 Lymph # (Auto) 0.7 L (1.0-4.8) th/mm3 [place] # (Auto) 0.6 (0.0-0.9) th/mm3 Eos # (Auto) 0.0 (0.0-0.4) th/mm3 Baso # (Auto) 0.0 (0.0-0.2) th/mm3 WBC Differential . Differential Comment Auto diff final PT 11.2 (9.8-11.6) sec INR 1.1 Ratio APTT 42.2 H (23.4-31.7) sec Sodium (136-145) meq/L Potassium (3.5-5.1) meq/L Chloride (98-107) meq/L Carbon Dioxide (21.0-32.0) meq/L Anion Gap (5-15) meq/L BUN (7-18) mg/dL Creatinine (0.60-1.30) mg/dL Estimated GFR (>89) mL/min Random Glucose (74-106) mg/dL Calcium (8.5-10.1) mg/dL Total Bilirubin (0.2-1.0) mg/dL AST (15-37) U/L ALT (12-78) U/L Alkaline Phosphatase (45-117) U/L Total Creatine Kinase 270 (39-308) U/L CK-MB (CK-2) 3.1 (0.5-3.6) ng/mL Troponin I Less than 0.02 L (0.02-0.05) ng/mL Total Protein (6.4-8.2) g/dL Albumin (3.4-5.0) g/dL Lipase (73-393) U/L 05/05/18 05/05/18 Range/Units 09:56 13:14 WBC (4.0-11.0) th/mm3 RBC (4.50-5.90) mil/mm3 Hgb (13.0-17.0) gm/dL Hct (39.0-51.0) % MCV (80.0-100.0) fL MCH (27.0-34.0) pg MCHC (32.0-36.0) % RDW (11.6-17.2) % Plt Count (150-450) th/mm3 MPV (7.0-11.0) fL Neut % (Auto) (16.0-70.0) % Lymph % (Auto) (9.0-44.0) % [place] % (Auto) (0.0-8.0) % Eos % (Auto) (0.0-4.0) % Baso % (Auto) (0.0-2.0) % Neut # (Auto) (1.8-7.7) th/mm3 Lymph # (Auto) (1.0-4.8) th/mm3 [place] # (Auto) (0.0-0.9) th/mm3 Eos # (Auto) (0.0-0.4) th/mm3 Baso # (Auto) (0.0-0.2) th/mm3 WBC Differential Differential Comment PT (9.8-11.6) sec INR Ratio APTT (23.4-31.7) sec Sodium 141 (136-145) meq/L Potassium 3.9 (3.5-5.1) meq/L Chloride 106 (98-107) meq/L Carbon Dioxide 29.8 (21.0-32.0) meq/L Anion Gap 5 (5-15) meq/L BUN 13 (7-18) mg/dL Creatinine 1.06 (0.60-1.30) mg/dL Estimated GFR 85 L (>89) mL/min Random Glucose 107 H (74-106) mg/dL Calcium 8.5 (8.5-10.1) mg/dL Total Bilirubin 0.8 (0.2-1.0) mg/dL AST 23 (15-37) U/L ALT 20 (12-78) U/L Alkaline Phosphatase 63 (45-117) U/L Total Creatine Kinase 272 (39-308) U/L CK-MB (CK-2) (0.5-3.6) ng/mL Troponin I Less than 0.02 L (0.02-0.05) ng/mL Total Protein 8.1 (6.4-8.2) g/dL Albumin 3.3 L (3.4-5.0) g/dL Lipase 150 (73-393) U/L Imaging Data Radiologist's impression: Thoracic Aorta CT 05/05/18 09:55 CONCLUSION: 1. There is no evidence for dissection. Prominent ascending aorta without aortic valve calcifications. Correlation is suggested 2. There is no significant at this chronic vascular disease 3. Prominent prostate obturator adenopathy both in the right and left. Further evaluation suggested. Discharge Plan Discharge Disposition Patient Disposition: ED Admit(ED Internal Use Only) Discharge Condition Condition: Stable Discharge Order Discharge Orders: ED Use Only Admit Order (Routine); Ordered 05/05/18 Ordered By: Debbie Carrillo Discharge Details Diagnosis: Back pain Physicians Team ED Provider: Jacob Stack ED Midlevel Provider: Debbie Carrillo Primary Care Provider: Primary Care Patricia Steiner Attending Provider: José Antonio Tolbert Status ED Status: Admitted Observation Patient
[2018-05-05 10:23] LABS: Baso % (Auto) 0.4 % (0.0-2.0); Eos % (Auto) 0.5 % (0.0-4.0); Hematocrit 40.4 % (39.0-51.0); Hemoglobin 14.4 gm/dL (13.0-17.0); Lymph # (Auto) 0.7 th/mm3 (1.0-4.8); Lymph % (Auto) 12.5 % (9.0-44.0); Mean Corpuscular HGB Conc 35.6 % (32.0-36.0); Mean Corpuscular Hemoglobin 33.7 pg (27.0-34.0); Mean Corpuscular Volume 94.6 fL (80.0-100.0); Mean Platelet Volume 8.4 fL (7.0-11.0); Mono # (Auto) 0.6 th/mm3 (0.0-0.9); Mono % (Auto) 10.6 % (0.0-8.0); Neut # (Auto) 4.3 th/mm3 (1.8-7.7); Platelet Count 188 th/mm3 (150-450); Red Blood Count 4.27 mil/mm3 (4.50-5.90); Red Cell Distribution Width 13.4 % (11.6-17.2); White Blood Count 5.6 th/mm3 (4.0-11.0)
[2018-05-05 10:32] VITALS: O2SAT 97
[2018-05-05 10:32] LABS: Activated Partial Thrombo Time 42.2 sec (23.4-31.7); INR 1.1 Ratio; Prothrombin Time 11.2 sec (9.8-11.6)
[2018-05-05 10:47] LABS: Alanine Aminotransferase 20 U/L (12-78); Albumin 3.3 g/dL (3.4-5.0); Anion Gap 5 meq/L (5-15); Aspartate Aminotransferase 23 U/L (15-37); Blood Urea Nitrogen 13 mg/dL (7-18); Calcium 8.5 mg/dL (8.5-10.1); Carbon Dioxide 29.8 meq/L (21.0-32.0); Chloride 106 meq/L (98-107); Glomerular Filtration Rate 85 mL/min (>89); Glucose,Random 107 mg/dL (74-106); Lipase 150 U/L (73-393); Potassium 3.9 meq/L (3.5-5.1); Sodium 141 meq/L (136-145)
[2018-05-05 10:49] LABS: Alkaline Phosphatase 63 U/L (45-117); Total Protein 8.1 g/dL (6.4-8.2)
[2018-05-05 10:50] LABS: Creatine Kinase 270 U/L (39-308)
[2018-05-05 11:03] LABS: Creatine Kinase MB 3.1 ng/mL (0.5-3.6)
--- NOTE | 2018-05-05 12:05 | CT ---
EXAM DATE: 05/05/2018 11:22 AM EST AGE/SEX: 63 years / Male INDICATIONS: Evaluation for dissection. Right scapular pain. Neck pain radiates to right shoulder. CLINICAL DATA: This is the patient's initial encounter. Patient reports that signs and symptoms have been present for 3 days and indicates a pain score of 5/10. MEDICAL/SURGICAL HISTORY: . Hypertension. History of pulmonary embolism. Prosthetic eye. Hernia rep air. Lumbar surgery. Right knee surgery. . RADIATION DOSE: 5.23 CTDI (mGy) COMPARISON: No prior exams available for comparison. TECHNIQUE: Volumetric scanning was performed using a multi-row detector CT scanner during bolus infu sola of 98 ml Omnipaque 350 (iohexol) nonionic water-soluble contrast as a single exam dose. The da ta was post processed with a variety of visualization algorithms including full volume maximum intens ity projection, multi-planar sliding thin slab reformation, curved planar reformation, and surface re ndering techniques. Using automated exposure control and adjustment of the mA and/or kV according to patient size, radiation dose was kept as low as reasonably achievable to obtain optimal diagnostic q uality images. DICOM format image data is available electronically for review and comparison. FINDINGS: Lungs: Very minimal bibasilar parenchymal changes. Mediastinum: Minimal coronary calcifications without radiographic significant adenopathy Abdomen: The liver and spleen are free of focal defects. The gallbladder and pancreas demonstrate no abnormality. The adrenal glands are normal. The kidneys demonstrate no evidence of solid renal mass or hydronephrosis. No free fluid or abdominal masses are identified. No para-aortic adenopathy is see n. Pelvis: Prominent prostate is present with minimal obturator adenopathy on both the right and the le ft. Thoracic Aorta: Dilatation of the ascending aorta to 3.8 cm without dissection. Descending aorta lara sures 2.3 cm. No significant large vessel calcification. Abdominal Aorta: Mild atherosclerotic disease without aneurysm or calcific stenosis. Pelvic Vessels: The internal iliac and external iliac vessels are patent without aneurysm or stenosi s. CONCLUSION: 1. There is no evidence for dissection. Prominent ascending aorta without aortic valve calcification s. Correlation is suggested 2. There is no significant at this chronic vascular disease 3. Prominent prostate obturator adenopathy both in the right and left. Further evaluation suggested. Electronically signed by: Eddie Franks MD Board Certified Radiologist 05/05/2018 12:04 PM EST
[2018-05-05 13:54] LABS: Creatine Kinase 272 U/L (39-308)
--- NOTE | 2018-05-05 14:27 | P.HPCA ---
History of Present Illness Primary Care Physician: [facility] Chief Complaint: Neck pain History of Present Illness: 63 year old male with history of hypertension, hyperlipidemia, and pulmonary embolism (2010) resents the emergency room for further evaluation of the neck pain. Onset 10 days ago. Initially location bilateral posterior neck and left shoulder pain. Pain persists all week in posterior neck and for past 3 days experienced bilateral shoulder pain, R>L. Characterized as "real bad spasm." Moderate to severe in severity. No recent injury or strain. Moving right shoulder, certain moves of the neck, and bending over to pick something up makes pain worse. Over the past week have used muscle relaxing creams, TENS unit (from past lumbar injuries), and heating pad without relief. Came to ER today because he was tired of constant pain. No recent illness, cough, or fever. Denies ever experiencing chest pain or dyspnea with presenting symptom. Denies numbness/tinglings of upper extremities. Reports remote whiplash injury 2010. Past cardiac testing 09/18/17 Lexiscan-unremarkable Social history Known hypertension and hyperlipidemia. No known coronary artery disease or diabetes. Lifelong non-smoker. No alcohol or recreational drug use. - Diagnosis (1) Cervical radiculopathy Review of Systems All other systems reviewed negative except as stated in HPI PMFSH - History History Provided By: Patient - Medical History Medical History: Medical History (Last Updated 05/05/18 @ 14:41 by SRINI Ledbetter) GERD (gastroesophageal reflux disease) Pancreatic cyst Glaucoma History of pulmonary embolus (PE) Hyperlipidemia Hypertension Old capsular knee ligament disruption of right lower extremity Prosthetic eye globe - Surgical History Surgical History: Surgical History (Last Reviewed 05/05/18 @ 14:41 by SRINI Ledbetter) History of hernia surgery History of lumbar surgery History of right knee surgery - Tobacco History Second Hand Smoke Exposure: No Tobacco Use In Past 30 Days: No Smoking Status: Former smoker Tobacco Type: Cigarettes - Alcohol History How Often Do You Have a Drink Containing Alcohol: Monthly or less - Substance Use History Substance History: No History of Abuse - Travel History History of Recent Travel: No Recent Travel in the [place] Within the Last 8 Weeks: No Recent Travel Out of the Country Within the Last 8 Weeks: No - Immunization History Tetanus Immunization: <5 Years Medications and Allergies Active Medications: Active Medications Sodium Chloride (Ns Flush) 2 ml IV.FLUSH PRN PRN PRN Reason: FLUSH AFTER USING IV ACCESS Sodium Chloride (Ns Flush) 2 ml IV.FLUSH BID BOB Sodium Chloride (Ns Flush) 2 ml IV.FLUSH PRN PRN PRN Reason: FLUSH AFTER USING IV ACCESS Allergies Allergy/AdvReac Type Severity Reaction Status Date / Time oxycodone Allergy Severe RASH/HIVES Verified 05/05/18 09:20 penicillin G Allergy Severe Hives Verified 05/05/18 09:20 amlodipine Allergy Intermediate MUSCLE Verified 05/05/18 09:20 WEAKNESS atorvastatin Allergy Intermediate MUSCLE Verified 05/05/18 09:20 WEAKNESS pravastatin Allergy Intermediate MUSCLE Verified 05/05/18 09:20 WEAKNESS simvastatin Allergy Intermediate MUSCLE Verified 05/05/18 09:20 WEAKNESS Home Medications Medication Instructions Recorded Confirmed Type dabigatran etexilate [Pradaxa] 75 mg PO BID 09/18/17 05/05/18 History lisinopril 40 mg PO DAILY 09/18/17 05/05/18 History metoprolol succinate 12.5 mg PO BID 09/18/17 05/05/18 History simethicone 80 mg PO DAILY PRN 09/18/17 05/05/18 History rosuvastatin 2.5 mg PO DAILY 05/05/18 05/05/18 History Exam Vital signs: Vital Signs 05/05/18 09:14 05/05/18 09:20 05/05/18 09:56 Temperature 98.9 F Pulse Rate 58 L Respiratory Rate 17 16 Blood Pressure 142/64 H Pulse Oximetry 99 99 05/05/18 10:31 05/05/18 12:16 05/05/18 12:17 Temperature Pulse Rate 59 L Respiratory Rate 18 Blood Pressure 136/61 Pulse Oximetry 97 97 97 Intake & Output 05/04/18 05/05/18 05/05/18 18:59 06:59 18:59 Weight 72.575 kg Narrative: GENERAL: Alert WN, WD, NAD, very pleasant, -[place] male HEAD: NC, AT NECK: Supple, no masses, trachea midline CV: Regular bradycardic rhythm, without murmur, rub, gallop. Chest nontender to palpation. RESP: Clear lungs throughout bilateral, no crackles, wheeze, rhonchi, symmetrical chest rise, nonlabored, able to speak in full sentences ABD: Soft, NT, ND, no masses, positive bowel tones EXT: Pulses +2x4, no dependent edema MS: Normal tone x4 extremities, bilateral posterior lateral neck tender to palpation, bilateral scapula tenderness to palpation, no obvious deformities, full range of motion with pain reproduced with passive internal and external rotation of right shoulder NEURO: Motor strength 5/5 PSYCH: A+O x3, pleasant affect, appropriate speech, mood, insight and judgment SKIN: Normal turgor, normal texture, no lesions, no rashes, brisk cap refill, even hair distribution Results 05/05/18 09:56 05/05/18 09:56 Cardiac Enzymes 05/05/18 05/05/18 05/05/18 Range/Units 09:56 09:56 13:14 AST 23 (15-37) U/L CK-MB (CK-2) 3.1 (0.5-3.6) ng/mL Troponin I Less than 0.02 L Less than 0.02 L (0.02-0.05) ng/mL Coagulation 05/05/18 Range/Units 09:56 PT 11.2 (9.8-11.6) sec APTT 42.2 H (23.4-31.7) sec CBC 05/05/18 Range/Units 09:56 WBC 5.6 (4.0-11.0) th/mm3 RBC 4.27 L (4.50-5.90) mil/mm3 Hgb 14.4 (13.0-17.0) gm/dL Hct 40.4 (39.0-51.0) % Plt Count 188 (150-450) th/mm3 Neut # (Auto) 4.3 (1.8-7.7) th/mm3 Lymph # (Auto) 0.7 L (1.0-4.8) th/mm3 [place] # (Auto) 0.6 (0.0-0.9) th/mm3 Eos # (Auto) 0.0 (0.0-0.4) th/mm3 Baso # (Auto) 0.0 (0.0-0.2) th/mm3 Comprehensive Metabolic Panel 05/05/18 Range/Units 09:56 Sodium 141 (136-145) meq/L Potassium 3.9 (3.5-5.1) meq/L Chloride 106 (98-107) meq/L Carbon Dioxide 29.8 (21.0-32.0) meq/L BUN 13 (7-18) mg/dL Creatinine 1.06 (0.60-1.30) mg/dL Calcium 8.5 (8.5-10.1) mg/dL AST 23 (15-37) U/L ALT 20 (12-78) U/L Alkaline Phosphatase 63 (45-117) U/L Total Protein 8.1 (6.4-8.2) g/dL Albumin 3.3 L (3.4-5.0) g/dL Intake and Output 05/04/18 05/05/18 05/05/18 22:59 06:59 14:59 Other: Weight 72.575 kg Patient Weight 05/06/18 06:59 Weight 72.575 kg - Imaging and Cardiology Imaging: Impressions Thoracic Aorta CT 05/05/18 09:55 CONCLUSION: 1. There is no evidence for dissection. Prominent ascending aorta without aortic valve calcifications. Correlation is suggested 2. There is no significant at this chronic vascular disease 3. Prominent prostate obturator adenopathy both in the right and left. Further evaluation suggested. EKG interpretations - Dysrhythmias Sinus rhythms and dysrhythmias: sinus bradycardia (< 50 bpm) (no st t segment changes) Caprini VTE Risk Assessment Caprini VTE Risk Assessment: Moderate/High Risk (score >= 2) Caprini Risk Assessment Model: Point Value = 1 Point Value = 2 Point Value = 3 Point Value = 5 Age 41-60 Minor surgery BMI > 25 kg/m2 Swollen legs Varicose veins or History of unexplained or recurrent spontaneous Oral contraceptives or hormone replacement Sepsis (< 1 month) Serious lung disease, including pneumonia (< 1 month) Abnormal pulmonary function Acute myocardial infarction Congestive heart failure (< 1 month) History of inflammatory bowel disease Medical patient at bed rest Age 61-74 Arthroscopic surgery Major open surgery (> 45 min) Laparoscopic surgery (> 45 min) Malignancy Confined to bed (> 72 hours) Immobilizing plaster cast Central venous access Age >= 75 History of VTE Family history of VTE Factor V Leiden Prothrombin [id number] Lupus anticoagulant Anticardiolipin antibodies Elevated serum homocysteine Heparin-induced thrombocytopenia Other congenital or acquired thrombophilia Stroke (< 1 month) Elective arthroplasty Hip, pelvis, or leg fracture Acute spinal cord injury (< 1 month) Prophylaxis Regimen: Total Risk Factor Score Risk Level Prophylaxis Regimen 0-1 Low Early ambulation 2 Moderate Order ONE of the following: *Sequential Compression Device (SCD) *Heparin 5000 units SQ BID 3-4 Higher Order ONE of the following medications: *Heparin 5000 units SQ TID *Enoxaparin/Lovenox 40 mg SQ daily (WT < 150 kg, CrCl > 30 mL/min) *Enoxaparin/Lovenox 30 mg SQ daily (WT < 150 kg, CrCl > 10-29 mL/min) *Enoxaparin/Lovenox 30 mg SQ BID (WT < 150 kg, CrCl > 30 mL/min) AND/OR *Sequential Compression Device (SCD) 5 or more Highest Order ONE of the following medications: *Heparin 5000 units SQ TID (Preferred with Epidurals) *Enoxaparin/Lovenox 40 mg SQ daily (WT < 150 kg, CrCl > 30 mL/min) *Enoxaparin/Lovenox 30 mg SQ daily (WT < 150 kg, CrCl > 10-29 mL/min) *Enoxaparin/Lovenox 30 mg SQ BID (WT < 150 kg, CrCl > 30 mL/min) AND *Sequential Compression Device (SCD) Assessment and Plan - Assessment (1) Cervical radiculopathy Code(s): M54.12 - Radiculopathy, cervical region Status: Acute Plan: Admitted to chest pain center. Continue ruling out ACS with standard [facility] protocol. Monitor on telemetry. Will be seen and evaluated by Dr José Antonio Tolbert. Patient has denied any chest pain and doesn't report any angina equivalent symptoms. Discomfort clearly musculoskeletal in nature, easily reproduced with palpation, and range of motion. Duration over one week and would certainly expect changes in EKG or laboratory findings if discomfort was cardiac related. Flexeril POx1 dose now. Consider Toradol 30 mg IV x1 dose. Recent unremarkable Lexiscan September 2017. Likely no further cardiac testing will be warranted, however this will be determined after evaluation by [facility] [employer] teacher. 1515-Dr. Tolbert assessed patient. Toradol 30 mg IV x1 dose now. Reassess after Toradol and muscle relaxant given. Ice pack to affected area. No further cardiac testing warranted at this time. Plans to discharge home later this evening with prescription muscle relaxer and diclofenac. Patient agreeable to plan of care. Discussed plan of care with RN. H&P: Quality - VTE Deep Vein Thrombosis/Pulmonary Embolism Present on Admission: No
[2018-05-05] MEDS ORDERED: Ketorolac Inj 30 MG/ML (IVP) Vial IV.PUSH ONE (15:03)
[2018-05-05 15:47] VITALS: BP 122/70; PULSE 65; RESP 15; TEMP 98.7
[2018-05-05 15:55] LABS: Creatine Kinase 249 U/L (39-308)
--- NOTE | 2018-05-05 17:53 | ECG ---
Date Performed: 05/05/2018 Time Performed: 15:27:11 PTAGE: 63 years EKG: Sinus rhythm NORMAL ECG PREVIOUS TRACING : 05/05/2018 09.59 Since the previous tracing, no significant change noted DOCTOR: Diana Leung Interpretating Date/Time 05/05/2018 17:52:40
--- NOTE | 2018-05-05 18:02 | ECG ---
Date Performed: 05/05/2018 Time Performed: 13:08:58 PTAGE: 63 years EKG: Sinus rhythm REVERSED LEADS PREVIOUS TRACING : 05/05/2018 09.59 Compared to previous tracing, rate faster DOCTOR: Diana Leung Interpretating Date/Time 05/05/2018 18:00:18
--- NOTE | 2018-05-05 18:09 | ECG ---
Date Performed: 05/05/2018 Time Performed: 09:59:29 PTAGE: 63 years EKG: SINUS BRADYCARDIA MODERATE INTRAVENTRICULAR CONDUCTION DELAY ST ELEVATION, PROBABLY EARLY R EPOLARIZATION BORDERLINE ECG PREVIOUS TRACING : 09/18/2017 13.53 Since the previous tracing, no significant change noted DOCTOR: Diana Leung Interpretating Date/Time 05/05/2018 18:08:11
== END 2018-05-05 17:38 | disposition home or self-care (01) ==
LOC: NEDA 09:11 → NEPB 09:11 → NEPHCDU 12:35
PROVIDERS: ADMIT Emergency Medicine; ATTEND Emergency Medicine
DX: R00.1 Bradycardia, unspecified; E78.5 Hyperlipidemia, unspecified; Z79.02 Long term (current) use of antithrombotics/antiplatelets; Z79.899 Other long term (current) drug therapy; H40.9 Unspecified glaucoma; M54.12 Radiculopathy, cervical region; Z87.891 Personal history of nicotine dependence; I10 Essential (primary) hypertension; K21.9 Gastro-esophageal reflux disease without esophagitis; Z86.711 Personal history of pulmonary embolism
CPT/HCPCS: 71275; 74175; 80053; 82550; 82552; 83690; 84484; 85025; 85610; 85730; 90774; 90784; 93005; 96374; 96375; 99285; C8952; G0378; J1885; J2060; Q9967